=== PATIENT | male | born 1950 | race Asian ===

== ENCOUNTER 2016-09-06 11:38 | Inpatient (IN) | payer MEDICARE, MEDICAID ==
[~2016-09-06] VITALS: Ht 165.1 cm; Wt 63.0 kg
--- NOTE | 2016-09-06 11:38 | Emergency Room Report ---
History of Present Illness General Chief Complaint: Chest Pain Source: Patient, Medical Record Present Illness HPI Patient is a 65-year-old male sent in by detention after increased chest pain for the past 2 hours. Patient was reportedly had prior history of renal disease. As well as diabetes. Patient was noted to have prior history of pneumonia as well venous thromboembolic disease. The patient noted to be short of breath by EMS. He was started on supplemental oxygen. Allergies: Coded Allergies: No Known Allergies (Unverified , 09/06/16) Patient History Past Medical History: see triage record Reviewed Nursing Documentation: PMH: Agreed, PSxH: Agreed Nursing Documentation-PM Past Medical History: No History, Except For Hx Hypertension: Yes Hx Diabetes: Yes - DM2 Hx Cerebrovascular Accident: Yes - Left sided weakness Review of Systems All Other Systems: negative except mentioned in HPI Physical Exam Vital Signs Date Time Temp Pulse Resp B/P Pulse Ox O2 Delivery O2 Flow Rate FiO2 09/06/16 11:26 140 22 168/71 98 Simple Mask 15.0 General Appearance: alert, moderate distress ENT: hearing grossly normal Neck: full range of motion Respiratory: rales, rhonchi Cardiovascular #1: normal peripheral pulses, regular rate, rhythm, no edema Gastrointestinal: normal bowel sounds, non tender, soft, no mass, no organomegaly Neurologic: normal inspection, alert, director targeted marketing III-XII nml as tested Skin: normal inspection, normal color, no rash Medical Decision Making Diagnostic Impression: Primary Impression: Pneumonia ER Course Patient presented for chest pain. Differential diagnosis included but was not limited to acute coronary syndrome, pulmonary embolism, pneumonia, aortic dissection, shingles, pneumothorax, aortic dissection, esophageal rupture, pericarditis. Because of complexity of patient's case laboratory testing and imaging studies were ordered.Laboratory testing was notable for elevated white blood count. The patient was noted to have infiltrate on chest x-ray and consistent with pneumonia. Patient started on BiPAP. He was given IV antibiotics and IV fluids as well as Tylenol for fever. Dr. Jeter was contacted for inpatient management due to complexity of medical condition. Labs Test 09/06/16 11:36 09/06/16 11:46 White Blood Count 18.2 K/UL (4.8-10.8) Red Blood Count 3.39 M/UL (4.70-6.10) Hemoglobin 10.9 G/DL (14.2-18.0) Hematocrit 31.9 % (42.0-52.0) Mean Corpuscular Volume 94 FL (80-99) Mean Corpuscular Hemoglobin 32.1 PG (27.0-31.0) Mean Corpuscular Hemoglobin Concent 34.0 G/DL (32.0-36.0) Red Cell Distribution Width 11.0 % (11.6-14.8) Platelet Count 247 K/UL (150-450) Mean Platelet Volume 5.5 FL (6.5-10.1) Neutrophils (%) (Auto) % (45.0-75.0) Lymphocytes (%) (Auto) % (20.0-45.0) Monocytes (%) (Auto) % (1.0-10.0) Eosinophils (%) (Auto) % (0.0-3.0) Basophils (%) (Auto) % (0.0-2.0) Sodium Level 134 mEQ/L (135-145) Potassium Level 3.7 mEQ/L (3.4-4.9) Chloride Level 94 mEQ/L (98-107) Carbon Dioxide Level 24 mEQ/L (20-30) Anion Gap 16 (5-15) Blood Urea Nitrogen 16 mg/dL (7-23) Creatinine 0.7 mg/dL (0.7-1.2) Estimat Glomerular Filtration Rate > 60 mL/min (>60) Glucose Level 115 mg/dL (74-106) Lactic Acid Level 3.50 mmol/L (0.66-2.22) Calcium Level 7.5 mg/dL (8.6-10.2) Total Bilirubin 0.7 mg/dL (0.0-1.2) Aspartate Amino Transf (AST/SGOT) 10 U/L (5-40) Alanine Aminotransferase (ALT/SGPT) 5 U/L (3-41) Alkaline Phosphatase 58 U/L (40-129) Total Creatine Kinase 21 U/L (38-174) Troponin I < 0.30 ng/mL (<=0.30) Total Protein 7.0 g/dL (6.6-8.7) Albumin 1.6 g/dL (3.5-5.2) Globulin 5.4 g/dL Albumin/Globulin Ratio 0.2 (1.0-2.7) EKG Diagnostic Results Rate: tachycardiac - 123 Rhythm: NSR ST Segments: no acute changes Rhythm Strip Diag. Results EP Interpretation: yes Rhythm: NSR, no PVC's, no ectopy Chest X-Ray Diagnostic Results EP Interpretation: Yes Findings: no effusion, no pneumothorax, other - consolidation Number of Views: 1 Last Vital Signs Date Time Temp Pulse Resp B/P Pulse Ox O2 Delivery O2 Flow Rate FiO2 09/06/16 11:26 140 22 168/71 98 Simple Mask 15.0 Status: unchanged Disposition: ADMITTED INPATIENT Condition: Serious Negro Josue September 06, 2016 11:38
[2016-09-06] MEDS ORDERED: Acetaminophen 650 MG SUPP RECTAL ONE ×2 (11:45)
[2016-09-06] MEDS ORDERED: Unasyn 3gm Inj ONE (11:52)
[2016-09-06] MEDS ORDERED: Ampicillin/Sulbactam Sod 3 GM in NS 110 ML IV SCH (12:00)
[2016-09-06] MEDS ORDERED: Vancomycin 1 GM in NS 275 ML IV ONE (12:00)
[2016-09-06 12:05] VITALS: BP 140/83
[2016-09-06 12:07] LABS: MEAN CORPUSCULAR HEMOGLOBIN 32.1 PG (27.0-31.0); MEAN CORPUSCULAR VOLUME 94 FL (80-99); MEAN PLATELET VOLUME 5.5 FL (6.5-10.1); PLATELET COUNT 247 K/UL (150-450); RED BLOOD COUNT 3.39 M/UL (4.70-6.10); WHITE BLOOD COUNT 18.2 K/UL (4.8-10.8)
[2016-09-06 12:24] LABS: ALANINE AMINOTRANSFERASE 5 U/L (3-41); ALBUMIN/GLOBULIN RATIO 0.2 (1.0-2.7); ANION GAP 16 (5-15); ASPARTATE AMINO TRANSFERASE 10 U/L (5-40); CALCIUM 7.5 mg/dL (8.6-10.2); CARBON DIOXIDE 24 mEQ/L (20-30); CHLORIDE 94 mEQ/L (98-107); CREATININE 0.7 mg/dL (0.7-1.2); GLOMERULAR FILTRATION RATE > 60 mL/min (>60); HEMOLYSIS 53; POTASSIUM 3.7 mEQ/L (3.4-4.9); SODIUM 134 mEQ/L (135-145)
[2016-09-06 12:25] LABS: TROPONIN I < 0.30 ng/mL (<=0.30)
[2016-09-06 12:27] LABS: APPEARANCE,URINE SLIGHTLY CLOUDY; KETONES,URINE NEGATIVE (NEGATIVE); LEUKOCYTE ESTERASE ,URINE 3+ (NEGATIVE); NITRITE,URINE NEGATIVE (NEGATIVE); PH,URINE 6 (4.5-8.0); PROTEIN,URINE 3+ (NEGATIVE); UROBILINOGEN,URINE 1 MG/DL (0.0-1.0)
[2016-09-06 12:33] LABS: REFLEX LACTIC ACID YES OR NO YES
[2016-09-06 12:35] LABS: CKMB < 1.5 ng/mL (< 6.7)
[2016-09-06 12:38] LABS: BACTERIA,URINE MODERATE /HPF; SQUAMOUS EPITHELIAL CELL,UR OCCASIONAL /LPF (NONE/OCC); WBC,URINE 30-40 /HPF (0 - 0)
[2016-09-06] MEDS ORDERED: Vancomycin 1gm inj IVPB ONE (12:41)
[2016-09-06] MEDS ORDERED: LOSARTAN POTASS50 MG ORAL (13:02)
[2016-09-06] MEDS ORDERED: TAMSULOSIN HCL0.4 MG ORAL (13:02)
[2016-09-06] MEDS ORDERED: BRIMONIDINE TART5 ML BOTH EYES (13:02)
[2016-09-06] MEDS ORDERED: MULTIVITAMINS1 EAC2 ORAL (13:02)
[2016-09-06] MEDS ORDERED: CARBIDOPA-LEVO1 EAC5 PO (13:02)
[2016-09-06] MEDS ORDERED: DOCUSATE SODIU100 MG ORAL (13:02)
[2016-09-06] MEDS ORDERED: GLIPIZIDE5 MG ORAL (13:02)
[2016-09-06] MEDS ORDERED: ACETAMINOPHEN325 M3 PO (13:05)
[2016-09-06] MEDS ORDERED: PRO-STAT LIQUID30 ML ORAL (13:05)
[2016-09-06] MEDS ORDERED: TRADJENTA5 MG PO (13:06)
[2016-09-06] MEDS ORDERED: TIMOLOL HEMIHYDRATE BOTH EYES (13:08)
[2016-09-06 13:20] LABS: BAND NEUTROPHILS % (MANUAL) 11 % (0-8); BASOPHILS % (MANUAL) 0 % (0-2); EOSINOPHILS % (MANUAL) 0 % (0-3); LYMPHOCYTES % (MANUAL) 3 % (20-45); NEUTROPHILS % (MANUAL) 84 % (45-75); PLATELET ESTIMATE ADEQUATE; PLATELET MORPHOLOGY NORMAL; TOTAL CELLS COUNTED 100
[2016-09-06 13:23] VITALS: BP 114/58
[2016-09-06] MEDS ORDERED: Miralax 17gm pkt ORAL PRN (14:00)
[2016-09-06] MEDS ORDERED: Nitroglycerin Subl 0.4mg tab (Bottle Of 25) SL PRN (14:00)
[2016-09-06] MEDS ORDERED: Mylanta II UD 30ml ORAL PRN (14:00)
[2016-09-06] MEDS ORDERED: Promethazine/Codeine 5ml UD ORAL PRN (14:00)
[2016-09-06] MEDS ORDERED: DuoNeb 0.5-3(2.5)mg/3ml neb HHN PRN (14:00)
[2016-09-06 14:34] VITALS: BP 125/60
[2016-09-06] MEDS ORDERED: Promethazine/DM 6.25mg/5ml ORAL PRN (14:45)
[2016-09-06] MEDS: DuoNeb 0.5-3(2.5)mg/3ml neb HHN SCH ×3 (15:00→22:54)
[2016-09-06 16:00] VITALS: BP 138/80
[2016-09-06] MEDS: NovoLOG Insulin Flexpen SUBQ SCH ×2 (16:30→20:41)
[2016-09-06] MEDS ORDERED: NovoLOG Insulin Flexpen SUBQ SCH ×2 (16:30→16:50)
[2016-09-06] MEDS: Piperacillin/Tazobactam 3.375 GM in D5W 110 ML IVPB SCH (17:13)
[2016-09-06 20:00] VITALS: BP 114/66
--- NOTE | 2016-09-06 20:01 | Wound Care Consultation ---
Wound Assessment Wound Assessment #1: Wound Present on Admission: Yes New Wound: No Status Change of Wound: No Wound Location Body Site Modif: right Wound Location Body Site: heel Wound Type: pressure ulcer Ho Test: Does not Ho Pressure Ulcer Stage: deep tissue injury Wound Thickness: Full Thickness Wound Length: 3.5 Wound Width: 3.0 Wound Depth: utd Percent of Wound Purple/Maroon: 100 Wound Drainage Amount: None Wound Drainage Odor: None/Absent Tissue Surrounding Wound: Erythemic Wound General Appearance: Reddened Wound Assessment #2: Wound Number: #2 Wound Present on Admission: Yes New Wound: No Status Change of Wound: No Wound Location Body Site Modif: mid Wound Location Body Site: nose Wound Type: pressure ulcer Ho Test: Does not Ho Pressure Ulcer Stage: I Wound Length: 0.8 Wound Width: 0.8 Percent of Wound [place]/Red: 100 Wound Drainage Amount: None Wound Drainage Odor: None/Absent Tissue Surrounding Wound: Intact Wound General Appearance: Reddened Wound Assessment #3: Wound Number: #3 Wound Present on Admission: Yes New Wound: No Status Change of Wound: No Wound Location Body Site Modif: mid Wound Location Body Site: sacral Wound Type: pressure ulcer Ho Test: Does not Ho Pressure Ulcer Stage: IV/unstageable Wound Thickness: Full Thickness Wound Length: 3.0 Wound Width: 3.0 Wound Depth: utd Percent of Wound [place]/Red: 10 Percent of Wound Bed Yellow/Wh: 90 Wound Drainage Description: Serosanguineous Wound Drainage Amount: Moderate Wound Drainage Odor: None/Absent Tissue Surrounding Wound: Macerated Wound General Appearance: Draining Wound Comment #1 Sacral stage IV/unstageable pressure ulcer #2 Right heel DTI pressure ulcer #3 Bridge of the nose stage I pressure ulcer Recommendation -Sacral pressure ulcer Cleanse with saline, pat dry, apply Therahoney gel to wound bed, cover with 4x4 , secure with Bordered gauze daily and PRN soiled/dislodged -Local wound care per protocol for DTI -Keep clean and dry -Turn and reposition -Optimize nutrition -Low air loss mattress -Offload both heels -Heel protector on both heels -Assess and f/u accordingly for any changes BASIA JACKSON RN September 06, 2016 20:00
[2016-09-06] MEDS: Timolol 0.5% Op Soln 2.5ml BOTH EYES SCH (20:42)
[2016-09-06] MEDS: Tamsulosin 0.4mg cap ORAL SCH (20:42)
[2016-09-06] MEDS ORDERED: Heparin 5000 units/ml inj SUBQ SCH (21:00)
[2016-09-06] MEDS ORDERED: Cefepime HCl 1 GM in D5W 55 ML IV SCH (21:00)
[2016-09-06] MEDS: Brimonidine 0.2% Opth Sol BOTH EYES SCH (21:56)
[2016-09-06] MEDS: Vancomycin 1gm/D5W 275ml IVPB SCH ×2 (23:07)
[2016-09-07] VITALS: BP 109/62
[2016-09-07 04:00] VITALS: BP 124/64
[2016-09-07 04:25] LABS: ALANINE AMINOTRANSFERASE 5 U/L (3-41); ALBUMIN/GLOBULIN RATIO 0.2 (1.0-2.7); ANION GAP 11 (5-15); ASPARTATE AMINO TRANSFERASE 6 U/L (5-40); CALCIUM 7.1 mg/dL (8.6-10.2); CARBON DIOXIDE 26 mEQ/L (20-30); CHLORIDE 101 mEQ/L (98-107); CREATININE 0.5 mg/dL (0.7-1.2); GLOMERULAR FILTRATION RATE > 60 mL/min (>60); HEMOLYSIS 1; POTASSIUM 3.1 mEQ/L (3.4-4.9); SODIUM 138 mEQ/L (135-145)
[2016-09-07 04:33] LABS: MEAN CORPUSCULAR HEMOGLOBIN 32.7 PG (27.0-31.0); MEAN CORPUSCULAR HGB CONC 34.9 G/DL (32.0-36.0); MEAN CORPUSCULAR VOLUME 94 FL (80-99); MEAN PLATELET VOLUME 5.6 FL (6.5-10.1); PLATELET COUNT 169 K/UL (150-450); RED CELL DISTRIBUTION WIDTH 11.3 % (11.6-14.8); WHITE BLOOD COUNT 12.7 K/UL (4.8-10.8)
[2016-09-07] MEDS: Brimonidine 0.2% Opth Sol BOTH EYES SCH ×3 (05:17→21:54)
[2016-09-07] MEDS: Piperacillin/Tazobactam 3.375 GM in D5W 110 ML IVPB SCH ×3 (05:17→21:53)
[2016-09-07] MEDS: NovoLOG Insulin Flexpen SUBQ SCH ×4 (05:39→21:00)
[2016-09-07] MEDS: DuoNeb 0.5-3(2.5)mg/3ml neb HHN SCH ×6 (07:40→23:00)
[2016-09-07 08:00] VITALS: BP 121/70
[2016-09-07] MEDS ORDERED: KCl 10% 40mEq/30ml liquid ORAL ONE (08:30)
[2016-09-07] MEDS: Losartan 50mg tab ORAL SCH (08:39)
[2016-09-07] MEDS: Docusate 100mg cap ORAL SCH ×2 (08:39→17:06)
[2016-09-07] MEDS: Heparin 5000 units/ml inj SUBQ SCH ×2 (08:40→20:33)
[2016-09-07] MEDS: Timolol 0.5% Op Soln 2.5ml BOTH EYES SCH ×2 (08:40→20:32)
[2016-09-07 10:25] LABS: ABG ALLEN TEST POSITIVE; ABG BASE EXCESS 0.2; ABG PCO2 30.8 mmHg (35.0-45.0)
--- NOTE | 2016-09-07 10:49 | Diagnostic Imaging Report ---
Indication: Abnormal breath sounds Comparison: 09/06/16 A single view chest radiograph was obtained. Findings: Interstitial vascular prominence demonstrated. Basilar atelectasis demonstrated. Small right pleural effusion is noted. The heart is mildly enlarged. Impression: Mild CHF suspected. No significant change from the previous day
[2016-09-07 11:47] VITALS: BP 113/74
[2016-09-07] MEDS: Vancomycin 1gm/D5W 275ml IVPB SCH ×2 (11:56)
[2016-09-07] MEDS ORDERED: Tubing IV Secondary IV ONE (14:11)
[2016-09-07 16:15] VITALS: BP 117/65
[2016-09-07 20:13] VITALS: BP 127/71
[2016-09-07] MEDS: Tamsulosin 0.4mg cap ORAL SCH (20:32)
--- NOTE | 2016-09-07 22:01 | History and Physical Report ---
DATE OF ADMISSION: 09/06/2016 CHIEF COMPLAINT: Chest pain, shortness of breath, and pneumonia. HISTORY OF PRESENT ILLNESS: The patient is a 66-year-old male. He has multiple medical problems including prior history of pneumonia, stroke, and encephalopathy. He has a history of acute kidney injury, DVT, and PE. He presented from a [facility] facility with complaints of acute onset of shortness of breath. According to the patient, he has had no cough, fevers, or chills. On evaluation in the emergency room, the patient had x-ray evidence of pneumonia. He was very dyspneic and hypoxic, was started on BiPAP and is now admitted for further evaluation and care. There are no reports of any bleeding. No melena. No bright red blood per rectum. PAST MEDICAL HISTORY: As above. PAST SURGICAL HISTORY: None. CURRENT MEDICATIONS: Reconciled and reviewed. ALLERGIES: None. FAMILY HISTORY: None. SOCIAL HISTORY: Negative for tobacco, ethanol, or drugs. REVIEW OF SYSTEMS: Unobtainable as the patient is currently on BiPAP and is dyspneic. PHYSICAL EXAMINATION: VITAL SIGNS: Temperature 98.3, pulse 72, respirations 20, and blood pressure 124/64. The patient is in no apparent distress. He is arousable. Does follow some simple commands. NECK: Supple. HEART: Regular rate and rhythm. LUNGS: Significant for scattered rhonchi. ABDOMEN: Soft, nontender, and nondistended. EXTREMITIES: Without clubbing, cyanosis, or edema. LABORATORY DATA: White count was 18,000, hemoglobin 10, hematocrit 31, and platelet count of 247,000. Lactic acid was 3.5. Potassium is 3.1. UA showed 30 to 40 WBCs. ASSESSMENT: 1. This is an elderly male with a history of stroke, encephalopathy, hypertension, chronic kidney disease, questionable history of pulmonary embolism, benign prostatic hypertrophy, and pneumonia admitted with complaints of shortness of breath, chest pain, respiratory failure secondary to pneumonia respiratory failure. 2. Questionable history of deep venous thrombosis and pulmonary embolism. 3. Hypertensive heart disease. 4. History of acute kidney injury. 5. Lactic acidosis. PLAN: IV fluids, respiratory treatments, and empiric antibiotic therapy for healthcare-associated aspiration pneumonia. ID, pulmonary, and Cardiology consultation was obtained. We will check a venous duplex of the legs. Monitor the patient's chest x-ray. The patient's status is currently guarded. Greyson Upton M.D. DR: ALEX JOB#: [id number] CC:
--- NOTE | 2016-09-07 22:15 | Consultation ---
DATE OF CONSULTATION: 09/07/2016 CONSULTING PHYSICIAN: Jossue Alvarez M.D. REASON FOR ADMISSION: Respiratory insufficiency, possible sepsis. HISTORY OF PRESENT ILLNESS: This is a 66-year-old male, [facility] due to chest pain, which is apparently acute. The patient was noted the have prior history of pneumonia and thrombosis. The patient was noted to also be short of breath and started on supplemental oxygen. I was called to assist and evaluate further for ongoing change in management options. The patient was placed on high-flow 15 liters mask and was saturating 98% in the emergency room. The patient currently is on nasal cannula and improved. The patient is on 4 liters. The patient does have rhonchi and congestion on examination. The patient's care discussed in detail and I was asked to assist to evaluate further. PAST MEDICAL HISTORY: Notable for history of CVA with focal weakness, history of diabetes, and history of prior pneumonia. The patient also with history of hypertension. MEDICATIONS: Reviewed. ALLERGIES: Reviewed. SOCIAL HISTORY: The patient resides in a long term facility. Nonsmoker and nondrinker at present. REVIEW OF SYSTEMS: Otherwise as above. Difficult to fully obtain. PHYSICAL EXAMINATION: GENERAL: A well-developed male, appears older than his stated age. VITAL SIGNS: Temperature 96.9, pulse 68, respiratory rate 21, blood pressure 121/71, and oxygen saturation 98% HEENT: Negative. The patient's extraocular movements are grossly intact. The oropharynx is clear. There is no meningismus. NECK: Supple. No adenopathy. LUNGS: With scattered rhonchi. Moderate air entry. CARDIOVASCULAR: S1 and S2. Regular rate and rhythm without murmurs, rubs, or gallops. ABDOMEN: Soft, nontender, and nondistended. EXTREMITIES: No cyanosis. No clubbing. No edema. NEUROLOGIC: With focal weakness. Alert. LABORATORY AND DIAGNOSTIC DATA: Lab data reviewed. White blood cell count 18.2, hemoglobin 10.9, hematocrit 31.9, and platelets 247,000. Sodium is 134, potassium 2.4, BUN 16, and creatinine 0.7. Lactic acid 3.5. The labs are otherwise negative. Troponin negative. EKG, sinus tachycardia. Chest x-ray appears to be fairly negative, but early infiltrate cannot be fully ruled out. IMPRESSION: 1. Respiratory insufficiency. 2. Evidence of congestion. 3. Noted hypoxemia. 4. Sinus tachycardia. 5. History of cerebrovascular accident with focal weakness. 6. History of diabetes. 7. Leukocytosis. 8. Possible sepsis. RECOMMENDATIONS: 1. Subcu heparin. 2. Obtain duplex of lower extremities to rule out deep venous thrombosis. 3. Consider further testing for noted underlying hypoxemia, although the patient has significantly improved and nebulized therapy as needed and follow cultures and follow up arterial blood gases. The patient is guarded, but appears to have improved. Arterial blood gases have been ordered. We will follow up on results. Jossue Alvarez M.D. DR: PRIMITIVO JOB#: [id number] CC:
--- NOTE | 2016-09-07 23:01 | Consultation ---
DATE OF CONSULTATION: 09/07/2016 INFECTIOUS DISEASES CONSULTATION REFERRING PHYSICIAN: Greyson Upton M.D. REASON FOR CONSULTATION: Pneumonia. HISTORY OF PRESENTING ILLNESS: This is a 66-year-old gentleman with history of diabetes, hypertension, and CVA, who came in with chest pain. He was found to have pneumonia and an Infectious Diseases consultation has been obtained for antibiotics. PAST MEDICAL HISTORY: 1. History of diabetes. 2. Hypertension. 3. CVA. MEDICATIONS: As an inpatient, the patient is on Cozaar, Colace, subcutaneous heparin, IV vancomycin, brimonidine, Flomax, timolol, Sinemet, ranitidine, Zosyn, albuterol, ipratropium, and Phenergan. ALLERGIES: No known drug allergies. SOCIAL HISTORY: Unknown. FAMILY HISTORY: Unknown. REVIEW OF SYSTEMS: Unable to obtain currently. PHYSICAL EXAMINATION: VITAL SIGNS: Temperature of 96.9 degrees, T-max of 102.8 degrees, pulse of 66, respiratory rate of 21, blood pressure 124/64, and O2 saturation of 97%. HEENT: Pupils equally reactive to light and accommodation. Mouth appears clean without thrush. NECK: Supple. No adenopathy. No JVD. CARDIOVASCULAR: Regular rate and rhythm. No murmurs. LUNGS: Clear to auscultation bilaterally. No crackles. No wheezes. ABDOMEN: Soft and nontender. No organomegaly. EXTREMITIES: No cyanosis, no clubbing, and no edema. LABORATORY AND DIAGNOSTIC DATA: White count of 18.2 on 09/06/2016, white count of 12.7 today, hemoglobin 9.1, hematocrit 26.2, MCV 94, and platelet count of 169,000. Sodium 138, potassium 3.1, chloride 101, bicarbonate 26, BUN 16, creatinine 0.5, glucose 64, and calcium 7.1. Total bilirubin 0.5. AST 6, ALT 5, and alkaline phosphatase 50. Total protein 6. Albumin 1.3. UA showing 30 to 40 white cells. Chest x-ray showing pneumonia. ASSESSMENT: 1. This is a 66-year-old gentleman with history of diabetes, hypertension, and cerebrovascular accident, who comes in and is found to have possible pneumonia. 2. He also has a urinary tract infection. 3. Fevers are improving. 4. Leukocytosis is improving. PLAN: 1. Continue IV vancomycin and Zosyn. 2. We will order blood cultures. 3. We will order urine cultures. 4. We will order sputum cultures. 5. We will follow up cultures and adjust antibiotics accordingly. I would like to thank, Dr. Upton for this consultation. Katya Carrera M.D. DR: Chris JOB#: [id number] CC: Greyson Upton M.D.
[2016-09-08] VITALS: BP 134/74
[2016-09-08] MEDS: Vancomycin 1gm/D5W 275ml IVPB SCH ×4 (01:04→11:30)
[2016-09-08] MEDS: DuoNeb 0.5-3(2.5)mg/3ml neb HHN SCH ×5 (03:00→23:00)
[2016-09-08 04:16] VITALS: BP 139/72
[2016-09-08 04:26] LABS: BASOPHILS % (AUTO) 0.3 % (0.0-2.0); EOSINOPHILS % (AUTO) 0.5 % (0.0-3.0); LYMPHOCYTES % (AUTO) 13.7 % (20.0-45.0); MEAN CORPUSCULAR HEMOGLOBIN 33.1 PG (27.0-31.0); MEAN CORPUSCULAR VOLUME 95 FL (80-99); MEAN PLATELET VOLUME 5.3 FL (6.5-10.1); MONOCYTES % (AUTO) 4.7 % (1.0-10.0); NEUTROPHILS % (AUTO) 80.8 % (45.0-75.0); PLATELET COUNT 178 K/UL (150-450); RED BLOOD COUNT 2.84 M/UL (4.70-6.10); RED CELL DISTRIBUTION WIDTH 11.5 % (11.6-14.8); WHITE BLOOD COUNT 10.2 K/UL (4.8-10.8)
[2016-09-08 04:38] LABS: ALANINE AMINOTRANSFERASE 5 U/L (3-41); ALBUMIN/GLOBULIN RATIO 0.2 (1.0-2.7); ANION GAP 11 (5-15); ASPARTATE AMINO TRANSFERASE 7 U/L (5-40); CALCIUM 6.8 mg/dL (8.6-10.2); CARBON DIOXIDE 24 mEQ/L (20-30); CHLORIDE 103 mEQ/L (98-107); CREATININE 0.7 mg/dL (0.7-1.2); GLOMERULAR FILTRATION RATE > 60 mL/min (>60); HEMOLYSIS 0; POTASSIUM 3.5 mEQ/L (3.4-4.9); SODIUM 138 mEQ/L (135-145); TOTAL PROTEIN 5.7 g/dL (6.6-8.7)
[2016-09-08] MEDS: Brimonidine 0.2% Opth Sol BOTH EYES SCH ×3 (05:53→21:36)
[2016-09-08] MEDS: Piperacillin/Tazobactam 3.375 GM in D5W 110 ML IVPB SCH ×3 (05:53→21:35)
[2016-09-08] MEDS: NovoLOG Insulin Flexpen SUBQ SCH ×4 (06:41→20:49)
--- NOTE | 2016-09-08 08:05 | General Progress Note ---
Assessment/Plan Problem List: (1) Sepsis ICD Codes: A41.9 - Sepsis, unspecified organism SNOMED: 78480346 (2) Toxic metabolic encephalopathy ICD Codes: G92 - Toxic encephalopathy SNOMED: 720905915 (3) Pneumonia ICD Codes: J18.9 - Pneumonia, unspecified organism SNOMED: 450588518 Status: stable, progressing Assessment/Plan iv abx follow up cultures resp care swallow eval monitor labs message left with son yesterday- no call back yet Subjective ROS Limited/Unobtainable: No Constitutional: Reports: malaise, weakness HEENT: Reports: no symptoms Cardiovascular: Reports: no symptoms Respiratory: Reports: cough, shortness of breath, sputum Gastrointestinal/Abdominal: Reports: no symptoms Genitourinary: Reports: no symptoms Neurologic/Psychiatric: Reports: pre-existing deficit Endocrine: Reports: no symptoms Hematologic/Lymphatic: Reports: anemia Allergies: Coded Allergies: No Known Allergies (Unverified , 09/06/16) All Systems: reviewed and negative except above Subjective no events. more alert. seems less confused. answers questions. no chest pain no obvious signs/sx of aspirtion. Objective Last 24 Hour Vital Signs Date Time Temp Pulse Resp B/P Pulse Ox O2 Delivery O2 Flow Rate FiO2 09/08/16 07:13 Nasal Cannula 2.0 28 09/08/16 07:13 97 Nasal Cannula 2.0 28 09/08/16 04:16 97.4 81 18 139/72 97 Nasal Cannula 2.0 09/08/16 04:00 40 09/08/16 04:00 16 09/08/16 03:20 Nasal Cannula 2.0 09/08/16 03:20 Nasal Cannula 2.0 09/08/16 00:00 82 09/08/16 00:00 40 09/08/16 00:00 97.6 82 18 134/74 95 Nasal Cannula 2.0 09/07/16 23:07 Nasal Cannula 2.0 09/07/16 23:07 Nasal Cannula 2.0 09/07/16 20:13 97.7 80 16 127/71 95 Nasal Cannula 2.0 09/07/16 20:00 40 09/07/16 20:00 79 09/07/16 19:34 80 16 99 Nasal Cannula 2.0 09/07/16 19:27 76 16 99 Nasal Cannula 2.0 09/07/16 19:27 Nasal Cannula 4.0 09/07/16 19:27 97 Nasal Cannula 4.0 09/07/16 16:15 97.3 78 23 117/65 98 Nasal Cannula 2.0 78 09/07/16 16:00 40 09/07/16 16:00 75 09/07/16 15:32 78 20 99 Nasal Cannula 2.0 09/07/16 15:22 72 20 99 Nasal Cannula 2.0 09/07/16 12:00 40 09/07/16 12:00 66 09/07/16 11:47 98.6 74 22 113/74 96 Nasal Cannula 2.0 74 09/07/16 11:30 76 20 100 Nasal Cannula 2.0 09/07/16 11:20 76 22 98 Nasal Cannula 2.0 09/07/16 09:18 97 Nasal Cannula 4.0 09/07/16 09:17 Nasal Cannula 4.0 09/07/16 08:39 124/64 Intake and Output 09/07/16 09/08/16 19:00 07:00 Intake Total 1645.008 ml 1487.500 ml Output Total 350 ml 300 ml Balance 1295.008 ml 1187.500 ml Intake Oral 360 ml 100 ml IV Total 1285.008 ml 1387.500 ml Output Urine Total 350 ml 300 ml Laboratory Tests 09/07/16 10:15: Arterial Blood pH 7.490H, Arterial Blood Partial Pressure CO2 30.8L, Arterial Blood Partial Pressure O2 115.8H, Arterial Blood HCO3 23.0, Arterial Blood Oxygen Saturation 97.5, Arterial Blood Base Excess 0.2, Gary Test Positive 09/07/16 10:20: Lactic Acid Level 1.10 09/07/16 23:35: Vancomycin Level Trough 20.6H 09/08/16 03:10: White Blood Count 10.2, Red Blood Count 2.84L, Hemoglobin 9.4L, Hematocrit 26.9L , Mean Corpuscular Volume 95, Mean Corpuscular Hemoglobin 33.1H, Mean Corpuscular Hemoglobin Concent 35.0, Red Cell Distribution Width 11.5L, Platelet Count 178, Mean Platelet Volume 5.3L, Neutrophils (%) (Auto) 80.8H, Lymphocytes (%) (Auto) 13.7L, Monocytes (%) (Auto) 4.7, Eosinophils (%) (Auto) 0.5, Basophils (%) (Auto) 0.3, Sodium Level 138, Potassium Level 3.5, Chloride Level 103, Carbon Dioxide Level 24, Anion Gap 11, Blood Urea Nitrogen 14, Creatinine 0.7, Estimat Glomerular Filtration Rate > 60, Glucose Level 130H, Calcium Level 6.8L, Total Bilirubin 0.4, Aspartate Amino Transf (AST/SGOT) 7, Alanine Aminotransferase (ALT/SGPT) 5, Alkaline Phosphatase 65, Total Protein 5.7L, Albumin 1.3L, Globulin 4.4, Albumin/Globulin Ratio 0.2L Height (Feet): 5 Height (Inches): 6.00 Weight (Pounds): 139 General Appearance: WD/WN, alert Neck: supple Cardiovascular: regular rhythm Respiratory/Chest: rhonchi - bilaterally Abdomen: normal bowel sounds, non tender, soft, no organomegaly, no mass Edema: no edema noted Arm (L), no edema noted Arm (R), no edema noted Leg (L), no edema noted Leg (R), no edema noted Pedal (L), no edema noted Pedal (R), no edema noted Generalized Neurologic: alert, responsive Skin: warm/dry CHELSY DA SILVA September 08, 2016 08:04
[2016-09-08] MEDS ORDERED: KCl 10% 40mEq/30ml liquid ORAL ONE (08:30)
[2016-09-08 08:33] VITALS: BP 153/75
[2016-09-08] MEDS: Losartan 50mg tab ORAL SCH (08:38)
[2016-09-08] MEDS: Docusate 100mg cap ORAL SCH ×2 (08:39→17:28)
[2016-09-08] MEDS: Timolol 0.5% Op Soln 2.5ml BOTH EYES SCH ×2 (08:39→20:41)
[2016-09-08] MEDS: Heparin 5000 units/ml inj SUBQ SCH ×2 (08:43→20:48)
--- NOTE | 2016-09-08 08:55 | Pulmonology Progress Note ---
Assessment/Plan Assessment/Plan IMPRESSION: 1. Respiratory insufficiency. 2. Evidence of congestion. 3. Noted hypoxemia. 4. Sinus tachycardia. 5. History of cerebrovascular accident with focal weakness. 6. History of diabetes. 7. Leukocytosis. 8. Possible sepsis. PLAN care noted respiratory care IV antibiotics keep negative chest imaging with ?pulmonary edema follow up exam ID Noted impression, plan, and exam edited and reviewed in detail care discussed with RN Subjective ROS Limited/Unobtainable: Yes Allergies: Coded Allergies: No Known Allergies (Unverified , 09/06/16) Subjective minimal congestion overnight events noted Objective Last 24 Hour Vital Signs Date Time Temp Pulse Resp B/P Pulse Ox O2 Delivery O2 Flow Rate FiO2 09/08/16 08:38 153/75 09/08/16 08:33 97.4 76 18 153/75 98 Nasal Cannula 2.0 76 09/08/16 07:13 Nasal Cannula 2.0 28 09/08/16 07:13 82 18 97 Nasal Cannula 2.0 28 09/08/16 07:13 82 18 97 Nasal Cannula 2.0 28 09/08/16 07:13 97 Nasal Cannula 2.0 28 09/08/16 04:16 97.4 81 18 139/72 97 Nasal Cannula 2.0 09/08/16 04:00 40 09/08/16 04:00 16 09/08/16 03:20 Nasal Cannula 2.0 09/08/16 03:20 Nasal Cannula 2.0 09/08/16 00:00 82 09/08/16 00:00 40 09/08/16 00:00 97.6 82 18 134/74 95 Nasal Cannula 2.0 09/07/16 23:07 Nasal Cannula 2.0 09/07/16 23:07 Nasal Cannula 2.0 09/07/16 20:13 97.7 80 16 127/71 95 Nasal Cannula 2.0 09/07/16 20:00 40 09/07/16 20:00 79 09/07/16 19:34 80 16 99 Nasal Cannula 2.0 09/07/16 19:27 76 16 99 Nasal Cannula 2.0 09/07/16 19:27 Nasal Cannula 4.0 09/07/16 19:27 97 Nasal Cannula 4.0 09/07/16 16:15 97.3 78 23 117/65 98 Nasal Cannula 2.0 78 09/07/16 16:00 40 09/07/16 16:00 75 09/07/16 15:32 78 20 99 Nasal Cannula 2.0 09/07/16 15:22 72 20 99 Nasal Cannula 2.0 09/07/16 12:00 40 09/07/16 12:00 66 09/07/16 11:47 98.6 74 22 113/74 96 Nasal Cannula 2.0 74 09/07/16 11:30 76 20 100 Nasal Cannula 2.0 09/07/16 11:20 76 22 98 Nasal Cannula 2.0 09/07/16 09:18 97 Nasal Cannula 4.0 09/07/16 09:17 Nasal Cannula 4.0 Intake and Output 09/07/16 09/08/16 19:00 07:00 Intake Total 1645.008 ml 1487.500 ml Output Total 350 ml 300 ml Balance 1295.008 ml 1187.500 ml Intake Oral 360 ml 100 ml IV Total 1285.008 ml 1387.500 ml Output Urine Total 350 ml 300 ml Objective PHYSICAL EXAMINATION: GENERAL: A well-developed male, appears older than his stated age. NAD HEENT: Negative. The patient's extraocular movements are grossly intact. The oropharynx is clear. NECK: Supple. No adenopathy. LUNGS: With some expiratory rhonchi. Moderate air entry. no wheeze CARDIOVASCULAR: S1 and S2. Regular rate and rhythm without murmurs, rubs, or gallops. ABDOMEN: Soft, nontender, and nondistended. no HSM EXTREMITIES: No cyanosis. No clubbing. No edema. NEUROLOGIC: With focal weakness. Alert. Microbiology Date/Time Source Procedure Growth Status 09/06/16 11:36 Blood Blood Culture - Preliminary NO GROWTH AFTER 24 HOURS Resulted 09/06/16 11:36 Blood Blood Culture - Preliminary NO GROWTH AFTER 24 HOURS Resulted 09/06/16 11:46 Nasal Nares MRSA Culture - Final NO METHICILLIN RESISTANT STAPH AUREUS... Complete 09/06/16 11:46 Urine,Clean Catch Urine Culture - Preliminary Gram Negative Jeremiah Resulted Laboratory Tests 09/07/16 10:15: Arterial Blood pH 7.490H, Arterial Blood Partial Pressure CO2 30.8L, Arterial Blood Partial Pressure O2 115.8H, Arterial Blood HCO3 23.0, Arterial Blood Oxygen Saturation 97.5, Arterial Blood Base Excess 0.2, Gary Test Positive 09/07/16 10:20: Lactic Acid Level 1.10 09/07/16 23:35: Vancomycin Level Trough 20.6H 09/08/16 03:10: White Blood Count 10.2, Red Blood Count 2.84L, Hemoglobin 9.4L, Hematocrit 26.9L , Mean Corpuscular Volume 95, Mean Corpuscular Hemoglobin 33.1H, Mean Corpuscular Hemoglobin Concent 35.0, Red Cell Distribution Width 11.5L, Platelet Count 178, Mean Platelet Volume 5.3L, Neutrophils (%) (Auto) 80.8H, Lymphocytes (%) (Auto) 13.7L, Monocytes (%) (Auto) 4.7, Eosinophils (%) (Auto) 0.5, Basophils (%) (Auto) 0.3, Sodium Level 138, Potassium Level 3.5, Chloride Level 103, Carbon Dioxide Level 24, Anion Gap 11, Blood Urea Nitrogen 14, Creatinine 0.7, Estimat Glomerular Filtration Rate > 60, Glucose Level 130H, Calcium Level 6.8L, Total Bilirubin 0.4, Aspartate Amino Transf (AST/SGOT) 7, Alanine Aminotransferase (ALT/SGPT) 5, Alkaline Phosphatase 65, Total Protein 5.7L, Albumin 1.3L, Globulin 4.4, Albumin/Globulin Ratio 0.2L Current Medications Medications (Trade) Dose Ordered Sig/Mili Route PRN Reason Start Time Stop Time Status Last Admin Dose Admin Acetaminophen (Tylenol) 650 mg Q4H PRN ORAL Mild Pain/Temp > 100.5 09/06/16 14:45 10/06/16 14:44 Albuterol/ Ipratropium (DuoNeb 0.5-3(2.5)mg/3ml) 3 ml Q4HRT HHN 09/06/16 15:00 09/11/16 14:59 09/08/16 07:13 Brimonidine Tartrate (Alphagan) 1 drop Q8HR BOTH EYES 09/06/16 22:00 10/06/16 21:59 09/08/16 05:53 Carbidopa/Levodopa (Sinemet CR 50/ 200) 1 ea Q12HR ORAL 09/06/16 21:00 10/06/16 20:59 09/08/16 08:39 Dextrose (Dextrose 50%) STAT PRN IV Hypoglycemia 09/06/16 15:15 10/06/16 15:14 09/07/16 05:22 Docusate Sodium 100 mg 100 mg TWICE A DAY ORAL 09/07/16 09:00 10/07/16 08:59 09/08/16 08:39 Heparin Sodium (Porcine) (Heparin 5000 units/ml) 5,000 units EVERY 12 HOURS SUBQ 09/07/16 09:00 10/07/16 08:59 09/08/16 08:43 Insulin Aspart (NovoLOG) BEFORE MEALS AND HS SUBQ 09/06/16 16:30 10/06/16 16:29 09/08/16 06:41 Losartan Potassium 50 mg 50 mg DAILY ORAL 09/07/16 09:00 10/07/16 08:59 09/08/16 08:38 Piperacillin Sod/ Tazobactam Sod/ Dextrose (Zosyn/D5W) 110 ml @ 27.5 mls/hr EVERY 8 HOURS IVPB 09/06/16 17:00 09/13/16 16:59 09/08/16 05:53 Promethazine HCl/ Dextromethorphan (Phenergan DM) 6.25 mg Q6H PRN ORAL For Cough 09/06/16 14:45 10/06/16 14:44 Ranitidine HCl 150 mg 150 mg BEDTIME ORAL 09/06/16 21:00 10/06/16 20:59 09/07/16 20:32 Sodium Chloride (Sodium Chloride 1000ml bag) 1,000 ml @ 75 mls/hr [id number] IV 09/06/16 15:30 10/06/16 15:29 09/08/16 06:24 Tamsulosin HCl (Flomax) 0.4 mg BEDTIME ORAL 09/06/16 21:00 10/06/16 20:59 09/07/16 20:32 Timolol Maleate (Timoptic 0.5% Op Soln) 1 drop Q12HR BOTH EYES 09/06/16 21:00 10/06/16 20:59 09/08/16 08:39 Vancomycin HCl (Vanco rx to dose) 1 ea DAILY PRN MISC Per rx protocol 09/06/16 14:45 10/06/16 14:44 Vancomycin HCl/ Dextrose (Vancomycin/D5W) 275 ml @ 183.708 mls/hr Q12HR@0000,1200 IVPB 09/07/16 00:00 09/12/16 00:00 09/08/16 01:04 STEPHANIE BRAUN September 08, 2016 08:55
--- NOTE | 2016-09-08 09:06 | Infectious Diseases Prog Note ---
Assessment/Plan Assessment/Plan A: Sepsis UTI Pneumonia HPN DM Anemia s/p CVA P: continue Vancomycin & Zosyn will f/u cultures Subjective ROS Limited/Unobtainable: Yes Respiratory: Reports: dry cough Allergies: Coded Allergies: No Known Allergies (Unverified , 09/06/16) Objective Vital Signs Last 24 Hour Vital Signs Date Time Temp Pulse Resp B/P Pulse Ox O2 Delivery O2 Flow Rate FiO2 09/08/16 08:38 153/75 09/08/16 08:33 97.4 76 18 153/75 98 Nasal Cannula 2.0 76 09/08/16 07:13 Nasal Cannula 2.0 28 09/08/16 07:13 82 18 97 Nasal Cannula 2.0 28 09/08/16 07:13 82 18 97 Nasal Cannula 2.0 28 09/08/16 07:13 97 Nasal Cannula 2.0 28 09/08/16 04:16 97.4 81 18 139/72 97 Nasal Cannula 2.0 09/08/16 04:00 40 09/08/16 04:00 16 09/08/16 03:20 Nasal Cannula 2.0 09/08/16 03:20 Nasal Cannula 2.0 09/08/16 00:00 82 09/08/16 00:00 40 09/08/16 00:00 97.6 82 18 134/74 95 Nasal Cannula 2.0 09/07/16 23:07 Nasal Cannula 2.0 09/07/16 23:07 Nasal Cannula 2.0 09/07/16 20:13 97.7 80 16 127/71 95 Nasal Cannula 2.0 09/07/16 20:00 40 09/07/16 20:00 79 09/07/16 19:34 80 16 99 Nasal Cannula 2.0 09/07/16 19:27 76 16 99 Nasal Cannula 2.0 09/07/16 19:27 Nasal Cannula 4.0 09/07/16 19:27 97 Nasal Cannula 4.0 09/07/16 16:15 97.3 78 23 117/65 98 Nasal Cannula 2.0 78 09/07/16 16:00 40 09/07/16 16:00 75 09/07/16 15:32 78 20 99 Nasal Cannula 2.0 09/07/16 15:22 72 20 99 Nasal Cannula 2.0 09/07/16 12:00 40 09/07/16 12:00 66 09/07/16 11:47 98.6 74 22 113/74 96 Nasal Cannula 2.0 74 09/07/16 11:30 76 20 100 Nasal Cannula 2.0 09/07/16 11:20 76 22 98 Nasal Cannula 2.0 09/07/16 09:18 97 Nasal Cannula 4.0 09/07/16 09:17 Nasal Cannula 4.0 Height (Feet): 5 Height (Inches): 6.00 Weight (Pounds): 139 General Appearance: no acute distress HEENT: mucous membranes moist Respiratory/Chest: rhonchi - bilaterally Cardiovascular: normal rate Abdomen: soft, non tender Extremities: no edema Neurologic/Psychiatric: other - sleeping Microbiology Date/Time Source Procedure Growth Status 09/06/16 11:36 Blood Blood Culture - Preliminary NO GROWTH AFTER 24 HOURS Resulted 09/06/16 11:36 Blood Blood Culture - Preliminary NO GROWTH AFTER 24 HOURS Resulted 09/06/16 11:46 Nasal Nares MRSA Culture - Final NO METHICILLIN RESISTANT STAPH AUREUS... Complete 09/06/16 11:46 Urine,Clean Catch Urine Culture - Preliminary Gram Negative Jeremiah Resulted Laboratory Tests Test 09/07/16 10:15 09/07/16 10:20 09/07/16 23:35 09/08/16 03:10 Arterial Blood pH 7.490 (7.350-7.450) Arterial Blood Partial Pressure CO2 30.8 mmHg (35.0-45.0) L Arterial Blood Partial Pressure O2 115.8 mmHg (75.0-100.0) H Arterial Blood HCO3 23.0 mmol/L (22.0-26.0) Arterial Blood Oxygen Saturation 97.5 % (92.0-98.0) Arterial Blood Base Excess 0.2 Gary Test Positive Lactic Acid Level 1.10 mmol/L (0.66-2.22) Vancomycin Level Trough 20.6 ug/mL (5.0-12.0) H White Blood Count 10.2 K/UL (4.8-10.8) Red Blood Count 2.84 M/UL (4.70-6.10) L Hemoglobin 9.4 G/DL (14.2-18.0) L Hematocrit 26.9 % (42.0-52.0) L Mean Corpuscular Volume 95 FL (80-99) Mean Corpuscular Hemoglobin 33.1 PG (27.0-31.0) H Mean Corpuscular Hemoglobin Concent 35.0 G/DL (32.0-36.0) Red Cell Distribution Width 11.5 % (11.6-14.8) L Platelet Count 178 K/UL (150-450) Mean Platelet Volume 5.3 FL (6.5-10.1) L Neutrophils (%) (Auto) 80.8 % (45.0-75.0) H Lymphocytes (%) (Auto) 13.7 % (20.0-45.0) L Monocytes (%) (Auto) 4.7 % (1.0-10.0) Eosinophils (%) (Auto) 0.5 % (0.0-3.0) Basophils (%) (Auto) 0.3 % (0.0-2.0) Sodium Level 138 mEQ/L (135-145) Potassium Level 3.5 mEQ/L (3.4-4.9) Chloride Level 103 mEQ/L (98-107) Carbon Dioxide Level 24 mEQ/L (20-30) Anion Gap 11 (5-15) Blood Urea Nitrogen 14 mg/dL (7-23) Creatinine 0.7 mg/dL (0.7-1.2) Estimat Glomerular Filtration Rate > 60 mL/min (>60) Glucose Level 130 mg/dL (74-106) H Calcium Level 6.8 mg/dL (8.6-10.2) L Total Bilirubin 0.4 mg/dL (0.0-1.2) Aspartate Amino Transf (AST/SGOT) 7 U/L (5-40) Alanine Aminotransferase (ALT/SGPT) 5 U/L (3-41) Alkaline Phosphatase 65 U/L (40-129) Total Protein 5.7 g/dL (6.6-8.7) L Albumin 1.3 g/dL (3.5-5.2) L Globulin 4.4 g/dL Albumin/Globulin Ratio 0.2 (1.0-2.7) L Current Medications Medications (Trade) Dose Ordered Sig/Mili Route PRN Reason Start Time Stop Time Status Last Admin Dose Admin Acetaminophen (Tylenol) 650 mg Q4H PRN ORAL Mild Pain/Temp > 100.5 09/06/16 14:45 10/06/16 14:44 Albuterol/ Ipratropium (DuoNeb 0.5-3(2.5)mg/3ml) 3 ml Q4HRT HHN 09/06/16 15:00 09/11/16 14:59 09/08/16 07:13 Brimonidine Tartrate (Alphagan) 1 drop Q8HR BOTH EYES 09/06/16 22:00 10/06/16 21:59 09/08/16 05:53 Carbidopa/Levodopa (Sinemet CR 50/ 200) 1 ea Q12HR ORAL 09/06/16 21:00 10/06/16 20:59 09/08/16 08:39 Dextrose (Dextrose 50%) STAT PRN IV Hypoglycemia 09/06/16 15:15 10/06/16 15:14 09/07/16 05:22 Docusate Sodium 100 mg 100 mg TWICE A DAY ORAL 09/07/16 09:00 10/07/16 08:59 09/08/16 08:39 Heparin Sodium (Porcine) (Heparin 5000 units/ml) 5,000 units EVERY 12 HOURS SUBQ 09/07/16 09:00 10/07/16 08:59 09/08/16 08:43 Insulin Aspart (NovoLOG) BEFORE MEALS AND HS SUBQ 09/06/16 16:30 10/06/16 16:29 09/08/16 06:41 Losartan Potassium 50 mg 50 mg DAILY ORAL 09/07/16 09:00 10/07/16 08:59 09/08/16 08:38 Piperacillin Sod/ Tazobactam Sod/ Dextrose (Zosyn/D5W) 110 ml @ 27.5 mls/hr EVERY 8 HOURS IVPB 09/06/16 17:00 09/13/16 16:59 09/08/16 05:53 Promethazine HCl/ Dextromethorphan (Phenergan DM) 6.25 mg Q6H PRN ORAL For Cough 09/06/16 14:45 10/06/16 14:44 Ranitidine HCl 150 mg 150 mg BEDTIME ORAL 09/06/16 21:00 10/06/16 20:59 09/07/16 20:32 Sodium Chloride (Sodium Chloride 1000ml bag) 1,000 ml @ 75 mls/hr [id number] IV 09/06/16 15:30 10/06/16 15:29 09/08/16 06:24 Tamsulosin HCl (Flomax) 0.4 mg BEDTIME ORAL 09/06/16 21:00 10/06/16 20:59 09/07/16 20:32 Timolol Maleate (Timoptic 0.5% Op Soln) 1 drop Q12HR BOTH EYES 09/06/16 21:00 10/06/16 20:59 09/08/16 08:39 Vancomycin HCl (Vanco rx to dose) 1 ea DAILY PRN MISC Per rx protocol 09/06/16 14:45 10/06/16 14:44 Vancomycin HCl/ Dextrose (Vancomycin/D5W) 275 ml @ 183.708 mls/hr Q12HR@0000,1200 IVPB 09/07/16 00:00 09/12/16 00:00 09/08/16 01:04 RANDALL MCKEON September 08, 2016 09:06
[2016-09-08 11:48] VITALS: BP 128/78
[2016-09-08 16:06] VITALS: BP 132/78
[2016-09-08] MEDS ORDERED: NS 275ml ONE (16:30)
[2016-09-08 20:00] VITALS: BP 152/85
[2016-09-08] MEDS: Tamsulosin 0.4mg cap ORAL SCH (20:41)
[2016-09-09] VITALS: BP 144/83
[2016-09-09] MEDS ORDERED: Vancomycin 750 MG in D5W 275 ML IVPB SCH ×2
[2016-09-09 04:00] VITALS: BP 157/83
[2016-09-09 05:21] LABS: BASOPHILS % (AUTO) 0.6 % (0.0-2.0); EOSINOPHILS % (AUTO) 0.8 % (0.0-3.0); LYMPHOCYTES % (AUTO) 23.3 % (20.0-45.0); MEAN CORPUSCULAR HEMOGLOBIN 31.9 PG (27.0-31.0); MEAN CORPUSCULAR HGB CONC 33.3 G/DL (32.0-36.0); MEAN CORPUSCULAR VOLUME 96 FL (80-99); MEAN PLATELET VOLUME 5.5 FL (6.5-10.1); MONOCYTES % (AUTO) 5.8 % (1.0-10.0); NEUTROPHILS % (AUTO) 69.5 % (45.0-75.0); PLATELET COUNT 162 K/UL (150-450); RED BLOOD COUNT 2.94 M/UL (4.70-6.10); RED CELL DISTRIBUTION WIDTH 11.7 % (11.6-14.8); WHITE BLOOD COUNT 7.1 K/UL (4.8-10.8)
[2016-09-09 05:55] LABS: ALANINE AMINOTRANSFERASE 5 U/L (3-41); ALBUMIN/GLOBULIN RATIO 0.3 (1.0-2.7); ANION GAP 13 (5-15); ASPARTATE AMINO TRANSFERASE 6 U/L (5-40); CALCIUM 6.9 mg/dL (8.6-10.2); CARBON DIOXIDE 21 mEQ/L (20-30); CHLORIDE 101 mEQ/L (98-107); CREATININE 0.7 mg/dL (0.7-1.2); GLOMERULAR FILTRATION RATE > 60 mL/min (>60); HEMOLYSIS 19; POTASSIUM 3.9 mEQ/L (3.4-4.9); SODIUM 135 mEQ/L (135-145); TOTAL PROTEIN 5.8 g/dL (6.6-8.7)
[2016-09-09] MEDS: Brimonidine 0.2% Opth Sol BOTH EYES SCH ×3 (06:26→22:00)
[2016-09-09] MEDS: Piperacillin/Tazobactam 3.375 GM in D5W 110 ML IVPB SCH (06:26)
[2016-09-09] MEDS: NovoLOG Insulin Flexpen SUBQ SCH ×4 (06:28→21:00)
[2016-09-09] MEDS: DuoNeb 0.5-3(2.5)mg/3ml neb HHN SCH ×5 (07:15→23:00)
[2016-09-09 08:00] VITALS: BP 145/72
[2016-09-09] MEDS: Losartan 50mg tab ORAL SCH (08:50)
[2016-09-09] MEDS: Heparin 5000 units/ml inj SUBQ SCH ×2 (08:52→21:23)
[2016-09-09] MEDS: Docusate 100mg cap ORAL SCH ×2 (08:52→18:02)
[2016-09-09] MEDS: Timolol 0.5% Op Soln 2.5ml BOTH EYES SCH ×2 (08:53→21:19)
--- NOTE | 2016-09-09 09:13 | Pulmonology Progress Note ---
Assessment/Plan Assessment/Plan IMPRESSION: 1. Respiratory insufficiency. 2. Evidence of congestion. 3. Noted hypoxemia. 4. Sinus tachycardia. 5. History of cerebrovascular accident with focal weakness. 6. History of diabetes. 7. Leukocytosis. 8. Possible sepsis. PLAN care noted respiratory care IV antibiotics keep negative chest imaging ordered- slightly worsened chf ?right basilar infiltrate follow up exam ID Noted wbc responding will monitor impression, plan, and exam edited and reviewed in detail care discussed with RN Subjective ROS Limited/Unobtainable: Yes Allergies: Coded Allergies: No Known Allergies (Unverified , 09/06/16) Subjective some congestion overnight events noted Objective Last 24 Hour Vital Signs Date Time Temp Pulse Resp B/P Pulse Ox O2 Delivery O2 Flow Rate FiO2 09/09/16 08:50 145/72 09/09/16 04:00 64 09/09/16 04:00 97.8 66 22 157/83 96 Nasal Cannula 2.0 09/09/16 04:00 2.0 09/09/16 03:11 Nasal Cannula 2.0 09/09/16 03:10 Nasal Cannula 2.0 09/09/16 00:00 2.0 09/09/16 00:00 65 09/09/16 00:00 97.3 74 20 144/83 96 Nasal Cannula 2.0 09/08/16 20:00 72 09/08/16 20:00 2.0 09/08/16 20:00 98.3 74 20 152/85 97 Nasal Cannula 2.0 09/08/16 19:30 97 Nasal Cannula 2.0 28 09/08/16 19:30 28 09/08/16 19:30 74 16 99 Nasal Cannula 2.0 28 09/08/16 19:30 71 16 97 Nasal Cannula 2.0 28 09/08/16 19:30 Nasal Cannula 2.0 28 09/08/16 16:06 98.1 72 17 132/78 98 Nasal Cannula 2.0 83 09/08/16 16:00 66 09/08/16 16:00 2.0 09/08/16 15:07 78 18 97 Nasal Cannula 2.0 28 09/08/16 15:07 78 18 97 Nasal Cannula 2.0 28 09/08/16 12:00 2.0 09/08/16 12:00 72 09/08/16 11:48 96.9 74 17 128/78 98 Nasal Cannula 2.0 75 09/08/16 10:40 80 18 97 Nasal Cannula 2.0 28 09/08/16 10:40 80 18 97 Nasal Cannula 2.0 28 Intake and Output 09/08/16 09/09/16 19:00 07:00 Intake Total 1687.5 ml 1190.500 ml Output Total 700 ml 1250 ml Balance 987.5 ml -59.500 ml Intake Oral 320 ml 50 ml IV Total 1367.5 ml 1140.500 ml Output Urine Total 700 ml 1250 ml Objective PHYSICAL EXAMINATION: GENERAL: A well-developed male, appears older than his stated age. NAD HEENT: Negative. The patient's extraocular movements are grossly intact. The oropharynx is clear. NECK: Supple. No adenopathy. LUNGS: With expiratory rhonchi. Moderate air entry. no wheeze symmetric CARDIOVASCULAR: S1 and S2. Regular rate and rhythm without murmurs, rubs, or gallops. ABDOMEN: Soft, nontender, and nondistended. no HSM; NABS EXTREMITIES: No cyanosis. No clubbing. No edema. NEUROLOGIC: With focal weakness. Alert. Microbiology Date/Time Source Procedure Growth Status 09/07/16 12:50 Blood Blood Culture - Preliminary NO GROWTH AFTER 24 HOURS Resulted 09/06/16 11:36 Blood Blood Culture - Preliminary NO GROWTH AFTER 48 HOURS Resulted 09/06/16 11:36 Blood Blood Culture - Preliminary NO GROWTH AFTER 48 HOURS Resulted 09/06/16 11:46 Nasal Nares MRSA Culture - Final NO METHICILLIN RESISTANT STAPH AUREUS... Complete 09/07/16 11:10 Urine,Clean Catch Urine Culture - Preliminary NO GROWTH AFTER 24 HOURS Resulted 09/06/16 11:46 Urine,Clean Catch Urine Culture - Final Proteus Mirabilis Klebsiella Pneumoniae Complete 09/06/16 11:46 Rectum VRE Culture - Final Enterococcus Faecalis - Vre Complete Laboratory Tests 09/09/16 04:20: White Blood Count 7.1, Red Blood Count 2.94L, Hemoglobin 9.4L, Hematocrit 28.2L , Mean Corpuscular Volume 96, Mean Corpuscular Hemoglobin 31.9H, Mean Corpuscular Hemoglobin Concent 33.3, Red Cell Distribution Width 11.7, Platelet Count 162, Mean Platelet Volume 5.5L, Neutrophils (%) (Auto) 69.5, Lymphocytes ( %) (Auto) 23.3, Monocytes (%) (Auto) 5.8, Eosinophils (%) (Auto) 0.8, Basophils (%) (Auto) 0.6, Sodium Level 135, Potassium Level 3.9, Chloride Level 101, Carbon Dioxide Level 21, Anion Gap 13, Blood Urea Nitrogen 8, Creatinine 0.7, Estimat Glomerular Filtration Rate > 60, Glucose Level 111H, Calcium Level 6.9L , Total Bilirubin 0.5, Aspartate Amino Transf (AST/SGOT) 6, Alanine Aminotransferase (ALT/SGPT) 5, Alkaline Phosphatase 47, Total Protein 5.8L, Albumin 1.4L, Globulin 4.4, Albumin/Globulin Ratio 0.3L Current Medications Medications (Trade) Dose Ordered Sig/Mili Route PRN Reason Start Time Stop Time Status Last Admin Dose Admin Acetaminophen (Tylenol) 650 mg Q4H PRN ORAL Mild Pain/Temp > 100.5 09/06/16 14:45 10/06/16 14:44 Albuterol/ Ipratropium (DuoNeb 0.5-3(2.5)mg/3ml) 3 ml Q4HRT HHN 09/06/16 15:00 09/11/16 14:59 09/08/16 19:30 Brimonidine Tartrate (Alphagan) 1 drop Q8HR BOTH EYES 09/06/16 22:00 10/06/16 21:59 09/09/16 06:26 Carbidopa/Levodopa (Sinemet CR 50/ 200) 1 ea Q12HR ORAL 09/06/16 21:00 10/06/16 20:59 09/09/16 08:50 Dextrose (Dextrose 50%) STAT PRN IV Hypoglycemia 09/06/16 15:15 10/06/16 15:14 09/07/16 05:22 Docusate Sodium 100 mg 100 mg TWICE A DAY ORAL 09/07/16 09:00 10/07/16 08:59 09/09/16 08:52 Heparin Sodium (Porcine) 5000 units 5,000 units EVERY 12 HOURS SUBQ 09/07/16 09:00 10/07/16 08:59 09/09/16 08:52 Insulin Aspart (NovoLOG) BEFORE MEALS AND HS SUBQ 09/06/16 16:30 10/06/16 16:29 09/08/16 20:49 Losartan Potassium 50 mg 50 mg DAILY ORAL 09/07/16 09:00 10/07/16 08:59 09/09/16 08:50 Piperacillin Sod/ Tazobactam Sod/ Dextrose (Zosyn/D5W) 110 ml @ 27.5 mls/hr EVERY 8 HOURS IVPB 09/06/16 17:00 09/13/16 16:59 09/09/16 06:26 Promethazine HCl/ Dextromethorphan (Phenergan DM) 6.25 mg Q6H PRN ORAL For Cough 09/06/16 14:45 10/06/16 14:44 09/08/16 14:35 Ranitidine HCl (Zantac) 150 mg BEDTIME ORAL 09/06/16 21:00 10/06/16 20:59 09/08/16 20:42 Sodium Chloride (Sodium Chloride 1000ml bag) 1,000 ml @ 75 mls/hr [id number] IV 09/06/16 15:30 10/06/16 15:29 09/08/16 20:50 Tamsulosin HCl (Flomax) 0.4 mg BEDTIME ORAL 09/06/16 21:00 10/06/16 20:59 09/08/16 20:41 Timolol Maleate (Timoptic 0.5% Op Soln) 1 drop Q12HR BOTH EYES 09/06/16 21:00 10/06/16 20:59 09/09/16 08:53 Vancomycin HCl (Vanco rx to dose) 1 ea DAILY PRN MISC Per rx protocol 09/06/16 14:45 10/06/16 14:44 Vancomycin HCl/ Dextrose (Vancomycin/D5W) 275 ml @ 183.708 mls/hr Q12HR@0000,1200 IVPB 09/09/16 00:00 09/14/16 00:00 09/09/16 00:08 STEPHANIE BRAUN September 09, 2016 09:13
--- NOTE | 2016-09-09 09:58 | General Progress Note ---
Assessment/Plan Problem List: (1) Sepsis ICD Codes: A41.9 - Sepsis, unspecified organism SNOMED: 02645548 (2) Toxic metabolic encephalopathy ICD Codes: G92 - Toxic encephalopathy SNOMED: 821079301 (3) Pneumonia ICD Codes: J18.9 - Pneumonia, unspecified organism SNOMED: 624909449 Status: stable, progressing Assessment/Plan iv abx follow up cultures resp care/rx swallow eval keep dry monitor cxr check npa monitor labs message left with son yesterday- no call back yet Subjective ROS Limited/Unobtainable: No Constitutional: Reports: malaise, weakness HEENT: Reports: no symptoms Cardiovascular: Reports: no symptoms Respiratory: Reports: cough, shortness of breath, sputum Gastrointestinal/Abdominal: Reports: no symptoms Genitourinary: Reports: no symptoms Neurologic/Psychiatric: Reports: pre-existing deficit Endocrine: Reports: no symptoms Hematologic/Lymphatic: Reports: no symptoms Allergies: Coded Allergies: No Known Allergies (Unverified , 09/06/16) All Systems: reviewed and negative except above Subjective no events. more alert. seems less confused. answers questions. no chest pain no obvious signs/sx of aspirtion. Objective Last 24 Hour Vital Signs Date Time Temp Pulse Resp B/P Pulse Ox O2 Delivery O2 Flow Rate FiO2 09/09/16 08:50 145/72 09/09/16 07:15 Nasal Cannula 2.0 09/09/16 07:15 Nasal Cannula 2.0 09/09/16 07:15 98 Nasal Cannula 2.0 09/09/16 07:15 Nasal Cannula 2.0 09/09/16 04:00 64 09/09/16 04:00 97.8 66 22 157/83 96 Nasal Cannula 2.0 09/09/16 04:00 2.0 09/09/16 03:11 Nasal Cannula 2.0 09/09/16 03:10 Nasal Cannula 2.0 09/09/16 00:00 2.0 09/09/16 00:00 65 09/09/16 00:00 97.3 74 20 144/83 96 Nasal Cannula 2.0 09/08/16 20:00 72 09/08/16 20:00 2.0 09/08/16 20:00 98.3 74 20 152/85 97 Nasal Cannula 2.0 09/08/16 19:30 97 Nasal Cannula 2.0 28 09/08/16 19:30 28 09/08/16 19:30 74 16 99 Nasal Cannula 2.0 09/08/16 19:30 71 16 97 Nasal Cannula 2.0 28 09/08/16 19:30 Nasal Cannula 2.0 28 09/08/16 16:06 98.1 72 17 132/78 98 Nasal Cannula 2.0 83 09/08/16 16:00 66 09/08/16 16:00 2.0 09/08/16 15:07 78 18 97 Nasal Cannula 2.0 28 09/08/16 15:07 78 18 97 Nasal Cannula 2.0 28 09/08/16 12:00 2.0 09/08/16 12:00 72 09/08/16 11:48 96.9 74 17 128/78 98 Nasal Cannula 2.0 75 09/08/16 10:40 80 18 97 Nasal Cannula 2.0 09/08/16 10:40 80 18 97 Nasal Cannula 2.0 Intake and Output 09/08/16 09/09/16 19:00 07:00 Intake Total 1687.5 ml 1190.500 ml Output Total 700 ml 1250 ml Balance 987.5 ml -59.500 ml Intake Oral 320 ml 50 ml IV Total 1367.5 ml 1140.500 ml Output Urine Total 700 ml 1250 ml Laboratory Tests 09/09/16 04:20: White Blood Count 7.1, Red Blood Count 2.94L, Hemoglobin 9.4L, Hematocrit 28.2L , Mean Corpuscular Volume 96, Mean Corpuscular Hemoglobin 31.9H, Mean Corpuscular Hemoglobin Concent 33.3, Red Cell Distribution Width 11.7, Platelet Count 162, Mean Platelet Volume 5.5L, Neutrophils (%) (Auto) 69.5, Lymphocytes ( %) (Auto) 23.3, Monocytes (%) (Auto) 5.8, Eosinophils (%) (Auto) 0.8, Basophils (%) (Auto) 0.6, Sodium Level 135, Potassium Level 3.9, Chloride Level 101, Carbon Dioxide Level 21, Anion Gap 13, Blood Urea Nitrogen 8, Creatinine 0.7, Estimat Glomerular Filtration Rate > 60, Glucose Level 111H, Calcium Level 6.9L , Total Bilirubin 0.5, Aspartate Amino Transf (AST/SGOT) 6, Alanine Aminotransferase (ALT/SGPT) 5, Alkaline Phosphatase 47, Total Protein 5.8L, Albumin 1.4L, Globulin 4.4, Albumin/Globulin Ratio 0.3L Height (Feet): 5 Height (Inches): 6.00 Weight (Pounds): 139 General Appearance: WD/WN, alert, confused Neck: supple Cardiovascular: regular rhythm Respiratory/Chest: no respiratory distress, no accessory muscle use, rhonchi - bilaterally Abdomen: normal bowel sounds, non tender, soft, no organomegaly Edema: no edema noted Arm (L), no edema noted Arm (R), no edema noted Leg (L), no edema noted Leg (R), no edema noted Pedal (L), no edema noted Pedal (R), no edema noted Generalized CHELSY DA SILVA September 09, 2016 09:58
--- NOTE | 2016-09-09 11:20 | Infectious Diseases Prog Note ---
"Assessment/Plan Assessment/Plan antibiotics : vancomycin iv, zosyn A 1. proteus | klebsiella UTI 2. leucocytosis improving 3. rectal VRE colonization 4. DM 5. HTN 6. CVA P 1. d/c vancomycin iv, zosyn 2. start and continue ceftriaxone 3 more days 3. will follow up cultures Subjective ROS Limited/Unobtainable: Yes Allergies: Coded Allergies: No Known Allergies (Unverified , 09/06/16) Objective Vital Signs Last 24 Hour Vital Signs Date Time Temp Pulse Resp B/P Pulse Ox O2 Delivery O2 Flow Rate FiO2 09/09/16 08:50 145/72 09/09/16 08:00 97.5 74 22 145/72 95 Nasal Cannula 2.0 09/09/16 08:00 67 09/09/16 07:15 Nasal Cannula 2.0 28 09/09/16 07:15 Nasal Cannula 2.0 28 09/09/16 07:15 98 Nasal Cannula 2.0 28 09/09/16 07:15 Nasal Cannula 2.0 28 09/09/16 04:00 64 09/09/16 04:00 97.8 66 22 157/83 96 Nasal Cannula 2.0 09/09/16 04:00 2.0 09/09/16 03:11 Nasal Cannula 2.0 28 09/09/16 03:10 Nasal Cannula 2.0 28 09/09/16 00:00 2.0 09/09/16 00:00 65 09/09/16 00:00 97.3 74 20 144/83 96 Nasal Cannula 2.0 09/08/16 20:00 72 09/08/16 20:00 2.0 09/08/16 20:00 98.3 74 20 152/85 97 Nasal Cannula 2.0 09/08/16 19:30 97 Nasal Cannula 2.0 28 09/08/16 19:30 28 09/08/16 19:30 74 16 99 Nasal Cannula 2.0 28 09/08/16 19:30 71 16 97 Nasal Cannula 2.0 28 09/08/16 19:30 Nasal Cannula 2.0 28 09/08/16 16:06 98.1 72 17 132/78 98 Nasal Cannula 2.0 83 09/08/16 16:00 66 09/08/16 16:00 2.0 09/08/16 15:07 78 18 97 Nasal Cannula 2.0 28 09/08/16 15:07 78 18 97 Nasal Cannula 2.0 28 09/08/16 12:00 2.0 09/08/16 12:00 72 09/08/16 11:48 96.9 74 17 128/78 98 Nasal Cannula 2.0 75 Height (Feet): 5 Height (Inches): 6.00 Weight (Pounds): 139 Respiratory/Chest: lungs clear Cardiovascular: normal rate, regular rhythm, no gallop/murmur Abdomen: soft, non tender Extremities: no edema Microbiology Date/Time Source Procedure Growth Status 09/07/16 12:50 Blood Blood Culture - Preliminary NO GROWTH AFTER 24 HOURS Resulted 09/06/16 11:36 Blood Blood Culture - Preliminary NO GROWTH AFTER 48 HOURS Resulted 09/06/16 11:36 Blood Blood Culture - Preliminary NO GROWTH AFTER 48 HOURS Resulted 09/06/16 11:46 Nasal Nares MRSA Culture - Final NO METHICILLIN RESISTANT STAPH AUREUS... Complete 09/07/16 11:10 Urine,Clean Catch Urine Culture - Preliminary NO GROWTH AFTER 24 HOURS Resulted 09/06/16 11:46 Urine,Clean Catch Urine Culture - Final Proteus Mirabilis Klebsiella Pneumoniae Complete 09/06/16 11:46 Rectum VRE Culture - Final Enterococcus Faecalis - Vre Complete Laboratory Tests Test 09/09/16 04:20 White Blood Count 7.1 K/UL (4.8-10.8) Red Blood Count 2.94 M/UL (4.70-6.10) L Hemoglobin 9.4 G/DL (14.2-18.0) L Hematocrit 28.2 % (42.0-52.0) L Mean Corpuscular Volume 96 FL (80-99) Mean Corpuscular Hemoglobin 31.9 PG (27.0-31.0) H Mean Corpuscular Hemoglobin Concent 33.3 G/DL (32.0-36.0) Red Cell Distribution Width 11.7 % (11.6-14.8) Platelet Count 162 K/UL (150-450) Mean Platelet Volume 5.5 FL (6.5-10.1) L Neutrophils (%) (Auto) 69.5 % (45.0-75.0) Lymphocytes (%) (Auto) 23.3 % (20.0-45.0) Monocytes (%) (Auto) 5.8 % (1.0-10.0) Eosinophils (%) (Auto) 0.8 % (0.0-3.0) Basophils (%) (Auto) 0.6 % (0.0-2.0) Sodium Level 135 mEQ/L (135-145) Potassium Level 3.9 mEQ/L (3.4-4.9) Chloride Level 101 mEQ/L (98-107) Carbon Dioxide Level 21 mEQ/L (20-30) Anion Gap 13 (5-15) Blood Urea Nitrogen 8 mg/dL (7-23) Creatinine 0.7 mg/dL (0.7-1.2) Estimat Glomerular Filtration Rate > 60 mL/min (>60) Glucose Level 111 mg/dL (74-106) H Calcium Level 6.9 mg/dL (8.6-10.2) L Total Bilirubin 0.5 mg/dL (0.0-1.2) Aspartate Amino Transf (AST/SGOT) 6 U/L (5-40) Alanine Aminotransferase (ALT/SGPT) 5 U/L (3-41) Alkaline Phosphatase 47 U/L (40-129) Total Protein 5.8 g/dL (6.6-8.7) L Albumin 1.4 g/dL (3.5-5.2) L Globulin 4.4 g/dL Albumin/Globulin Ratio 0.3 (1.0-2.7) L [place] HYATT September 09, 2016 11:20"
[2016-09-09 12:00] VITALS: BP 149/77
[2016-09-09 16:00] VITALS: BP 140/81
[2016-09-09 20:00] VITALS: BP 161/86
[2016-09-09] MEDS: Tamsulosin 0.4mg cap ORAL SCH (21:19)
[2016-09-10] VITALS (7 sets, daily range): BP systolic 123–165; BP diastolic 64–95
[2016-09-10] MEDS: DuoNeb 0.5-3(2.5)mg/3ml neb HHN SCH ×6 (03:00→23:00)
[2016-09-10 06:07] LABS: ALANINE AMINOTRANSFERASE 5 U/L (3-41); ALBUMIN/GLOBULIN RATIO 0.2 (1.0-2.7); ANION GAP 11 (5-15); ASPARTATE AMINO TRANSFERASE 7 U/L (5-40); CALCIUM 7.4 mg/dL (8.6-10.2); CARBON DIOXIDE 23 mEQ/L (20-30); CHLORIDE 103 mEQ/L (98-107); CREATININE 0.7 mg/dL (0.7-1.2); GLOMERULAR FILTRATION RATE > 60 mL/min (>60); HEMOLYSIS 4; POTASSIUM 3.7 mEQ/L (3.4-4.9); SODIUM 137 mEQ/L (135-145); TOTAL PROTEIN 6.2 g/dL (6.6-8.7)
[2016-09-10] MEDS: Brimonidine 0.2% Opth Sol BOTH EYES SCH ×3 (06:07→22:04)
[2016-09-10] MEDS: NovoLOG Insulin Flexpen SUBQ SCH ×4 (06:09→20:52)
--- NOTE | 2016-09-10 07:59 | Pulmonology Progress Note ---
Assessment/Plan Assessment/Plan IMPRESSION: 1. Respiratory insufficiency. 2. Evidence of congestion. 3. Noted hypoxemia. 4. Sinus tachycardia. 5. History of cerebrovascular accident with focal weakness. 6. History of diabetes. 7. Leukocytosis. 8. Possible sepsis. PLAN care noted respiratory care IV antibiotics keep negative as prior chest imaging ordered- slightly worsened chf ?right basilar infiltrate repeat chest xr for change follow up exam ID Noted wbc responding will monitor BNP- significantly elevated Lasix trial care discussed in detail impression, plan, and exam edited and reviewed in detail care discussed with RN Subjective ROS Limited/Unobtainable: Yes Allergies: Coded Allergies: No Known Allergies (Unverified , 09/06/16) Subjective some mild congestion overnight events noted no acute changes Objective Last 24 Hour Vital Signs Date Time Temp Pulse Resp B/P Pulse Ox O2 Delivery O2 Flow Rate FiO2 09/10/16 07:26 80 16 99 Nasal Cannula 2.0 09/10/16 07:16 84 16 97 Nasal Cannula 2.0 09/10/16 07:16 Nasal Cannula 2.0 09/10/16 07:15 97 Nasal Cannula 2.0 09/10/16 04:00 74 09/10/16 04:00 99.2 76 18 158/77 Room Air 09/10/16 03:09 Nasal Cannula 2.0 28 09/10/16 03:09 Nasal Cannula 2.0 28 09/10/16 00:00 72 09/10/16 00:00 99.7 74 18 161/76 98 Room Air 3.0 09/09/16 23:36 Nasal Cannula 2.0 28 09/09/16 23:36 Nasal Cannula 2.0 28 09/09/16 20:00 97.3 73 20 161/86 99 Nasal Cannula 3.0 09/09/16 20:00 73 09/09/16 19:44 Nasal Cannula 2.0 28 09/09/16 19:43 Nasal Cannula 2.0 28 09/09/16 19:43 Nasal Cannula 2.0 28 09/09/16 19:43 97 Nasal Cannula 2.0 28 09/09/16 16:00 97.7 74 20 140/81 99 Nasal Cannula 2.5 09/09/16 16:00 71 09/09/16 15:18 76 16 97 Nasal Cannula 2.0 28 09/09/16 15:18 Nasal Cannula 2.0 28 09/09/16 12:00 68 09/09/16 12:00 97.7 72 18 149/77 100 Nasal Cannula 2.5 09/09/16 11:24 74 12 98 Nasal Cannula 2.0 28 09/09/16 11:24 Nasal Cannula 2.0 28 09/09/16 08:50 145/72 09/09/16 08:00 97.5 74 22 145/72 95 Nasal Cannula 2.0 09/09/16 08:00 67 Intake and Output 09/09/16 09/10/16 19:00 07:00 Intake Total 600 ml 825 ml Output Total 850 ml 900 ml Balance -250 ml -75 ml IV Total 600 ml 825 ml Output Urine Total 850 ml 900 ml Objective PHYSICAL EXAMINATION: GENERAL: A well-developed male, appears older than his stated age. NAD HEENT: Negative. The patient's extraocular movements are grossly intact. The oropharynx is clear. NECK: Supple. No adenopathy. LUNGS: With minimal scattered rhonchi. Moderate air entry. no wheeze symmetric CARDIOVASCULAR: S1 and S2. Regular rate and rhythm without murmurs, rubs, or gallops. ABDOMEN: Soft, nontender, and nondistended. no HSM; NABS EXTREMITIES: No cyanosis. No clubbing. No edema. NEUROLOGIC: With focal weakness. Alert. Microbiology Date/Time Source Procedure Growth Status 09/07/16 12:50 Blood Blood Culture - Preliminary NO GROWTH AFTER 48 HOURS Resulted 09/07/16 11:10 Urine,Clean Catch Urine Culture - Final NO GROWTH AFTER 48 HOURS Complete Laboratory Tests 09/10/16 04:25: Sodium Level 137, Potassium Level 3.7, Chloride Level 103, Carbon Dioxide Level 23, Anion Gap 11, Blood Urea Nitrogen 8, Creatinine 0.7, Estimat Glomerular Filtration Rate > 60, Glucose Level 75, Calcium Level 7.4L, Total Bilirubin 0.4 , Aspartate Amino Transf (AST/SGOT) 7, Alanine Aminotransferase (ALT/SGPT) 5, Alkaline Phosphatase 43, Pro-B-Type Natriuretic Peptide 2464H, Total Protein 6.2L, Albumin 1.4L, Globulin 4.8, Albumin/Globulin Ratio 0.2L Current Medications Medications (Trade) Dose Ordered Sig/Mili Route PRN Reason Start Time Stop Time Status Last Admin Dose Admin Acetaminophen (Tylenol) 650 mg Q4H PRN ORAL Mild Pain/Temp > 100.5 09/06/16 14:45 10/06/16 14:44 Albuterol/ Ipratropium (DuoNeb 0.5-3(2.5)mg/3ml) 3 ml Q4HRT HHN 09/06/16 15:00 09/11/16 14:59 09/10/16 07:15 Brimonidine Tartrate (Alphagan) 1 drop Q8HR BOTH EYES 09/06/16 22:00 10/06/16 21:59 09/10/16 06:07 Carbidopa/Levodopa (Sinemet CR 50/ 200) 1 ea Q12HR ORAL 09/06/16 21:00 10/06/16 20:59 09/09/16 21:19 Dextrose (Dextrose 50%) STAT PRN IV Hypoglycemia 09/06/16 15:15 10/06/16 15:14 09/10/16 06:14 Docusate Sodium (Colace) 100 mg TWICE A DAY ORAL 09/07/16 09:00 10/07/16 08:59 09/09/16 18:02 Heparin Sodium (Porcine) (Heparin 5000 units/ml) 5,000 units EVERY 12 HOURS SUBQ 09/07/16 09:00 10/07/16 08:59 09/09/16 21:23 Insulin Aspart (NovoLOG) BEFORE MEALS AND HS SUBQ 09/06/16 16:30 10/06/16 16:29 09/08/16 20:49 Losartan Potassium 50 mg 50 mg DAILY ORAL 09/07/16 09:00 10/07/16 08:59 09/09/16 08:50 Promethazine HCl/ Dextromethorphan (Phenergan DM) 6.25 mg Q6H PRN ORAL For Cough 09/06/16 14:45 10/06/16 14:44 09/08/16 14:35 Ranitidine HCl (Zantac) 150 mg BEDTIME ORAL 09/06/16 21:00 10/06/16 20:59 09/09/16 21:20 Sodium Chloride (Sodium Chloride 1000ml bag) 1,000 ml @ 75 mls/hr [id number] IV 09/06/16 15:30 10/06/16 15:29 09/09/16 23:50 Tamsulosin HCl (Flomax) 0.4 mg BEDTIME ORAL 09/06/16 21:00 10/06/16 20:59 09/09/16 21:19 Timolol Maleate (Timoptic 0.5% Op Soln) 1 drop Q12HR BOTH EYES 09/06/16 21:00 10/06/16 20:59 09/09/16 21:19 STEPHANIE BRAUN September 10, 2016 07:59
--- NOTE | 2016-09-10 08:19 | General Progress Note ---
Assessment/Plan Problem List: (1) Sepsis ICD Codes: A41.9 - Sepsis, unspecified organism SNOMED: 23101659 (2) Toxic metabolic encephalopathy ICD Codes: G92 - Toxic encephalopathy SNOMED: 295399485 (3) Pneumonia ICD Codes: J18.9 - Pneumonia, unspecified organism SNOMED: 354278454 Status: stable, progressing Assessment/Plan iv abx follow up cultures resp care/rx swallow eval when family pressent keep dry monitor cxr dc ivf lasix monitor labs Subjective ROS Limited/Unobtainable: No Constitutional: Reports: malaise, weakness HEENT: Reports: no symptoms Cardiovascular: Reports: no symptoms Respiratory: Reports: cough, shortness of breath Gastrointestinal/Abdominal: Reports: difficulty swallowing Genitourinary: Reports: no symptoms Neurologic/Psychiatric: Reports: pre-existing deficit Endocrine: Reports: no symptoms Hematologic/Lymphatic: Reports: anemia Allergies: Coded Allergies: No Known Allergies (Unverified , 09/06/16) All Systems: reviewed and negative except above Subjective no events. more alert. seems less confused. answers questions. no chest pain no obvious signs/sx of aspirtion. off ivf. lasix ordered for elevated bnp. refused swallow eval but ate well with family yesterday. Objective Last 24 Hour Vital Signs Date Time Temp Pulse Resp B/P Pulse Ox O2 Delivery O2 Flow Rate FiO2 09/10/16 07:26 80 16 99 Nasal Cannula 2.0 09/10/16 07:16 84 16 97 Nasal Cannula 2.0 09/10/16 07:16 Nasal Cannula 2.0 09/10/16 07:15 97 Nasal Cannula 2.0 09/10/16 04:00 74 09/10/16 04:00 99.2 76 18 158/77 Room Air 09/10/16 03:09 Nasal Cannula 2.0 28 09/10/16 03:09 Nasal Cannula 2.0 28 09/10/16 00:00 72 09/10/16 00:00 99.7 74 18 161/76 98 Room Air 3.0 09/09/16 23:36 Nasal Cannula 2.0 28 09/09/16 23:36 Nasal Cannula 2.0 28 09/09/16 20:00 97.3 73 20 161/86 99 Nasal Cannula 3.0 09/09/16 20:00 73 09/09/16 19:44 Nasal Cannula 2.0 09/09/16 19:43 Nasal Cannula 2.0 09/09/16 19:43 Nasal Cannula 2.0 09/09/16 19:43 97 Nasal Cannula 2.0 09/09/16 16:00 97.7 74 20 140/81 99 Nasal Cannula 2.5 09/09/16 16:00 71 09/09/16 15:18 76 16 97 Nasal Cannula 2.0 09/09/16 15:18 Nasal Cannula 2.0 09/09/16 12:00 68 09/09/16 12:00 97.7 72 18 149/77 100 Nasal Cannula 2.5 09/09/16 11:24 74 12 98 Nasal Cannula 2.0 09/09/16 11:24 Nasal Cannula 2.0 09/09/16 08:50 145/72 Intake and Output 09/09/16 09/10/16 19:00 07:00 Intake Total 600 ml 825 ml Output Total 850 ml 900 ml Balance -250 ml -75 ml IV Total 600 ml 825 ml Output Urine Total 850 ml 900 ml Laboratory Tests 09/10/16 04:25: Sodium Level 137, Potassium Level 3.7, Chloride Level 103, Carbon Dioxide Level 23, Anion Gap 11, Blood Urea Nitrogen 8, Creatinine 0.7, Estimat Glomerular Filtration Rate > 60, Glucose Level 75, Calcium Level 7.4L, Total Bilirubin 0.4 , Aspartate Amino Transf (AST/SGOT) 7, Alanine Aminotransferase (ALT/SGPT) 5, Alkaline Phosphatase 43, Pro-B-Type Natriuretic Peptide 2464H, Total Protein 6.2L, Albumin 1.4L, Globulin 4.8, Albumin/Globulin Ratio 0.2L Height (Feet): 5 Height (Inches): 6.00 Weight (Pounds): 139 Objective General Appearance: WD/WN, alert, confused Neck: supple Cardiovascular: regular rhythm Respiratory/Chest: no respiratory distress, no accessory muscle use, rhonchi - bilaterally Abdomen: normal bowel sounds, non tender, soft, no organomegaly Edema: no edema noted Arm (L), no edema noted Arm (R), no edema noted Leg (L), no edema noted Leg (R), no edema noted Pedal (L), no edema noted Pedal (R), no edema noted Generalized CHELSY DA SILVA September 10, 2016 08:19
[2016-09-10] MEDS: Heparin 5000 units/ml inj SUBQ SCH ×2 (08:25→20:50)
[2016-09-10] MEDS: Docusate 100mg cap ORAL SCH ×2 (08:27→18:36)
[2016-09-10] MEDS: Losartan 50mg tab ORAL SCH (08:27)
[2016-09-10] MEDS: Timolol 0.5% Op Soln 2.5ml BOTH EYES SCH ×2 (08:27→20:50)
--- NOTE | 2016-09-10 09:18 | Diagnostic Imaging Report ---
Indication: SOB Technique: One view of the chest Comparison: none Findings: There is dense consolidation in the retrocardiac region. Consolidative and nodular opacities are seen at both lung bases. There is also generalized chronic appearing interstitial prominence and bronchial wall thickening. The heart size is upper limits normal. Pleural spaces are clear. Impression: Bilateral basilar parenchymal consolidation, suspect pneumonia. Chronic appearing interstitial prominence and central bronchial wall thickening, suspect on the basis of COPD changes
--- NOTE | 2016-09-10 09:18 | Diagnostic Imaging Report ---
Indication: Cough Comparison: 09/07/16 A single view chest radiograph was obtained. Findings: Right pleural effusion is present. There is interstitial edema with peribronchial cuffing and some alveolar airspace disease at the lung bases this heart is enlarged. Impression: Slightly worsening CHF
--- NOTE | 2016-09-10 10:41 | Infectious Diseases Prog Note ---
Assessment/Plan Assessment/Plan A: Sepsis resolved UTI CHF HPN DM Anemia s/p CVA P: continue Rocephin X 2 days will f/u cultures Subjective ROS Limited/Unobtainable: Yes Allergies: Coded Allergies: No Known Allergies (Unverified , 09/06/16) Objective Vital Signs Last 24 Hour Vital Signs Date Time Temp Pulse Resp B/P Pulse Ox O2 Delivery O2 Flow Rate FiO2 09/10/16 08:27 149/95 09/10/16 08:00 97.7 87 20 144/95 96 Nasal Cannula 2.0 09/10/16 08:00 78 09/10/16 07:26 80 16 99 Nasal Cannula 2.0 09/10/16 07:16 84 16 97 Nasal Cannula 2.0 09/10/16 07:16 Nasal Cannula 2.0 09/10/16 07:15 97 Nasal Cannula 2.0 09/10/16 04:00 74 09/10/16 04:00 99.2 76 18 158/77 Room Air 09/10/16 03:09 Nasal Cannula 2.0 09/10/16 03:09 Nasal Cannula 2.0 28 09/10/16 00:00 72 09/10/16 00:00 99.7 74 18 161/76 98 Room Air 3.0 09/09/16 23:36 Nasal Cannula 2.0 09/09/16 23:36 Nasal Cannula 2.0 09/09/16 20:00 97.3 73 20 161/86 99 Nasal Cannula 3.0 09/09/16 20:00 73 09/09/16 19:44 Nasal Cannula 2.0 09/09/16 19:43 Nasal Cannula 2.0 09/09/16 19:43 Nasal Cannula 2.0 28 09/09/16 19:43 97 Nasal Cannula 2.0 28 09/09/16 16:00 97.7 74 20 140/81 99 Nasal Cannula 2.5 09/09/16 16:00 71 09/09/16 15:18 76 16 97 Nasal Cannula 2.0 09/09/16 15:18 Nasal Cannula 2.0 28 09/09/16 12:00 68 09/09/16 12:00 97.7 72 18 149/77 100 Nasal Cannula 2.5 09/09/16 11:24 74 12 98 Nasal Cannula 2.0 28 09/09/16 11:24 Nasal Cannula 2.0 28 Height (Feet): 5 Height (Inches): 6.00 Weight (Pounds): 139 General Appearance: no acute distress HEENT: mucous membranes moist Respiratory/Chest: lungs clear Cardiovascular: normal rate Abdomen: soft, non tender Extremities: other - right hand edema Neurologic/Psychiatric: other - sleeping Microbiology Date/Time Source Procedure Growth Status 09/07/16 12:50 Blood Blood Culture - Preliminary NO GROWTH AFTER 48 HOURS Resulted 09/07/16 11:10 Urine,Clean Catch Urine Culture - Final NO GROWTH AFTER 48 HOURS Complete Laboratory Tests Test 09/10/16 04:25 Sodium Level 137 mEQ/L (135-145) Potassium Level 3.7 mEQ/L (3.4-4.9) Chloride Level 103 mEQ/L (98-107) Carbon Dioxide Level 23 mEQ/L (20-30) Anion Gap 11 (5-15) Blood Urea Nitrogen 8 mg/dL (7-23) Creatinine 0.7 mg/dL (0.7-1.2) Estimat Glomerular Filtration Rate > 60 mL/min (>60) Glucose Level 75 mg/dL (74-106) Calcium Level 7.4 mg/dL (8.6-10.2) L Total Bilirubin 0.4 mg/dL (0.0-1.2) Aspartate Amino Transf (AST/SGOT) 7 U/L (5-40) Alanine Aminotransferase (ALT/SGPT) 5 U/L (3-41) Alkaline Phosphatase 43 U/L (40-129) Pro-B-Type Natriuretic Peptide 2464 pg/mL (0-125) H Total Protein 6.2 g/dL (6.6-8.7) L Albumin 1.4 g/dL (3.5-5.2) L Globulin 4.8 g/dL Albumin/Globulin Ratio 0.2 (1.0-2.7) L Current Medications Medications (Trade) Dose Ordered Sig/Mili Route PRN Reason Start Time Stop Time Status Last Admin Dose Admin Acetaminophen (Tylenol) 650 mg Q4H PRN ORAL Mild Pain/Temp > 100.5 09/06/16 14:45 10/06/16 14:44 Albuterol/ Ipratropium (DuoNeb 0.5-3(2.5)mg/3ml) 3 ml Q4HRT HHN 5/26/17 15:00 09/11/16 14:59 09/10/16 07:15 Brimonidine Tartrate (Alphagan) 1 drop Q8HR BOTH EYES 09/06/16 22:00 10/06/16 21:59 09/10/16 06:07 Carbidopa/Levodopa (Sinemet CR 50/ 200) 1 ea Q12HR ORAL 09/06/16 21:00 10/06/16 20:59 09/10/16 08:27 Dextrose (Dextrose 50%) STAT PRN IV Hypoglycemia 09/06/16 15:15 10/06/16 15:14 09/10/16 06:14 Docusate Sodium (Colace) 100 mg TWICE A DAY ORAL 09/07/16 09:00 10/07/16 08:59 09/10/16 08:27 Heparin Sodium (Porcine) (Heparin 5000 units/ml) 5,000 units EVERY 12 HOURS SUBQ 09/07/16 09:00 10/07/16 08:59 09/10/16 08:25 Insulin Aspart (NovoLOG) BEFORE MEALS AND HS SUBQ 09/06/16 16:30 10/06/16 16:29 09/08/16 20:49 Losartan Potassium (Cozaar) 50 mg DAILY ORAL 09/07/16 09:00 10/07/16 08:59 09/10/16 08:27 Promethazine HCl/ Dextromethorphan (Phenergan DM) 6.25 mg Q6H PRN ORAL For Cough 09/06/16 14:45 10/06/16 14:44 09/08/16 14:35 Ranitidine HCl (Zantac) 150 mg BEDTIME ORAL 09/06/16 21:00 10/06/16 20:59 09/09/16 21:20 Tamsulosin HCl (Flomax) 0.4 mg BEDTIME ORAL 09/06/16 21:00 10/06/16 20:59 09/09/16 21:19 Timolol Maleate (Timoptic 0.5% Op Soln) 1 drop Q12HR BOTH EYES 09/06/16 21:00 10/06/16 20:59 09/10/16 08:27 RANDALL MCKEON September 10, 2016 10:41
--- NOTE | 2016-09-10 12:36 | Diagnostic Imaging Report ---
APPROVED REPORT CPT Code: 38190 Present Symptoms Lower Extremity Pain: Bilateral BILATERAL: Imaging reveals a patent deep venous system bilaterally. There is no evidence of thrombus within the femoral, popliteal or tibial segments. The greater saphenous veins are also within normal limits. Doppler indicates normal spontaneous flow within these segments.
[2016-09-10] MEDS ORDERED: cefTRIAXone 1 GM in D5W 55 ML IVPB SCH (14:00)
[2016-09-10] MEDS ORDERED: NS 275ml ONE (17:01)
[2016-09-10] MEDS ORDERED: Tubing IV Secondary IV ONE (17:01)
[2016-09-10] MEDS ORDERED: Promethazine/DM 6.25mg/5ml ORAL PRN (20:45)
[2016-09-10] MEDS: Tamsulosin 0.4mg cap ORAL SCH (20:50)
--- NOTE | 2016-09-11 01:00 | Progress Note ---
DATE: 09/10/2016 CARDIOLOGY PROGRESS NOTE SUBJECTIVE: The patient was seen and evaluated. Discussed with Dr. Upton. Antibiotic regimen was confirmed. The patient has had difficulty eating with staff, however, eats well with family members. A repeat swallow evaluation with family members is planned. The patient has been somewhat more congested today. OBJECTIVE: VITAL SIGNS: Blood pressure 165/85, pulse 84, respirations 19, and afebrile. LUNGS: Diminished breath sounds with few rales. HEART: Regular rhythm and rate. Normal S1 and S2 with a fourth heart sound. ABDOMEN: Soft. EXTREMITIES: Trace dependent edema. LABORATORY DATA: White count 7.1 and hemoglobin 9.4. Sodium 137, potassium 3.7, bicarbonate 23, BUN 8, and creatinine 0.7. Pro-natriuretic peptide 2464. Albumin 1.4. IMPRESSION: 1. Healthcare-acquired pneumonia. 2. Dysphagia. 3. Acute diastolic congestive heart failure. 4. Hypertensive heart disease. 5. Anemia. PLAN: 1. Discontinue intravenous fluids. 2. Cautious diuresis. 3. Antimicrobials. 4. Respiratory hygiene. 5. Swallow evaluation. 6. Aspiration precautions. 7. DVT prophylaxis. Felix Carranza M.D. DR: ILYA JOB#: [id number] CC:
[2016-09-11] MEDS: DuoNeb 0.5-3(2.5)mg/3ml neb HHN SCH ×6 (03:00→23:35)
[2016-09-11 03:58] VITALS: BP 155/88
[2016-09-11] MEDS: Brimonidine 0.2% Opth Sol BOTH EYES SCH ×3 (04:52→21:52)
[2016-09-11] MEDS: NovoLOG Insulin Flexpen SUBQ SCH ×4 (04:53→21:00)
[2016-09-11 06:32] LABS: ALANINE AMINOTRANSFERASE 5 U/L (3-41); ALBUMIN/GLOBULIN RATIO 0.3 (1.0-2.7); ANION GAP 12 (5-15); ASPARTATE AMINO TRANSFERASE 7 U/L (5-40); CALCIUM 7.6 mg/dL (8.6-10.2); CARBON DIOXIDE 26 mEQ/L (20-30); CHLORIDE 100 mEQ/L (98-107); CREATININE 0.7 mg/dL (0.7-1.2); GLOMERULAR FILTRATION RATE > 60 mL/min (>60); HEMOLYSIS 5; POTASSIUM 3.7 mEQ/L (3.4-4.9); SODIUM 138 mEQ/L (135-145); TOTAL PROTEIN 6.7 g/dL (6.6-8.7)
[2016-09-11] MEDS ORDERED: KCl 10% 40mEq/30ml liquid ORAL ONE (08:00)
[2016-09-11 08:07] VITALS: BP 156/84
[2016-09-11] MEDS: Timolol 0.5% Op Soln 2.5ml BOTH EYES SCH ×2 (08:38→21:03)
[2016-09-11] MEDS: Docusate 100mg cap ORAL SCH ×2 (08:39→17:03)
[2016-09-11] MEDS: Losartan 50mg tab ORAL SCH (08:40)
[2016-09-11] MEDS: Heparin 5000 units/ml inj SUBQ SCH ×2 (08:43→21:01)
--- NOTE | 2016-09-11 08:53 | Pulmonology Progress Note ---
Assessment/Plan Assessment/Plan IMPRESSION: 1. Respiratory insufficiency. 2. Evidence of congestion. 3. Noted hypoxemia. 4. Sinus tachycardia. 5. History of cerebrovascular accident with focal weakness. 6. History of diabetes. 7. Leukocytosis. 8. Possible sepsis. PLAN care noted respiratory care IV antibiotics maintain negative in and out duplex negative follow up on chest xr follow up exam ID Noted will monitor BNP- significantly elevated Lasix trial ? continue care discussed in detail impression, plan, and exam edited and reviewed in detail care discussed with RN Subjective ROS Limited/Unobtainable: Yes Allergies: Coded Allergies: No Known Allergies (Unverified , 09/06/16) Subjective reduced congestion overnight events noted no acute changes Objective Last 24 Hour Vital Signs Date Time Temp Pulse Resp B/P Pulse Ox O2 Delivery O2 Flow Rate FiO2 09/11/16 08:40 156/84 09/11/16 08:07 97.3 81 20 156/84 98 Nasal Cannula 2.0 09/11/16 07:18 82 16 99 Nasal Cannula 2.0 09/11/16 07:09 98 Nasal Cannula 2.0 09/11/16 07:09 82 14 97 Nasal Cannula 2.0 28 09/11/16 07:09 Nasal Cannula 2.0 09/11/16 04:00 77 09/11/16 03:58 98.2 82 19 155/88 96 Nasal Cannula 2.0 09/11/16 03:27 Nasal Cannula 2.0 28 09/11/16 03:27 Nasal Cannula 2.0 28 09/11/16 00:05 Nasal Cannula 2.0 28 09/11/16 00:05 Nasal Cannula 2.0 28 09/11/16 00:00 75 09/10/16 23:55 97.5 81 20 131/64 98 Nasal Cannula 2.0 09/10/16 20:00 79 09/10/16 19:58 97.7 84 19 165/85 97 Nasal Cannula 2.0 09/10/16 19:43 Nasal Cannula 2.0 28 09/10/16 19:42 Nasal Cannula 2.0 09/10/16 19:42 98 Nasal Cannula 2.0 09/10/16 19:42 Nasal Cannula 2.0 28 09/10/16 16:00 82 09/10/16 16:00 97.9 84 18 129/74 99 Nasal Cannula 2.0 09/10/16 15:20 Nasal Cannula 2.0 28 09/10/16 15:20 Nasal Cannula 2.0 28 09/10/16 11:56 84 09/10/16 11:55 97.0 98 20 123/78 98 Nasal Cannula 2.0 09/10/16 11:17 84 16 99 Nasal Cannula 2.0 09/10/16 11:06 80 16 96 Nasal Cannula 2.0 Intake and Output 09/10/16 09/11/16 19:00 07:00 Intake Total 140 ml Output Total 2000 ml 400 ml Balance -1860 ml -400 ml Intake Oral 30 ml IV Total 110 ml Output Urine Total 2000 ml 400 ml Objective PHYSICAL EXAMINATION: GENERAL: A well-developed male, appears older than his stated age. NAD HEENT: Negative. The patient's extraocular movements are grossly intact. The oropharynx is clear. NECK: Supple. No adenopathy. LUNGS: With some rhonchi. Moderate air entry. no wheeze symmetric CARDIOVASCULAR: S1 and S2. Regular rate and rhythm without murmurs, rubs, or gallops. ABDOMEN: Soft, nontender, and nondistended. no HSM; NABS EXTREMITIES: No cyanosis. No clubbing. No edema. NEUROLOGIC: With focal weakness. Alert. Laboratory Tests 09/11/16 05:20: Sodium Level 138, Potassium Level 3.7, Chloride Level 100, Carbon Dioxide Level 26, Anion Gap 12, Blood Urea Nitrogen 10, Creatinine 0.7, Estimat Glomerular Filtration Rate > 60, Glucose Level 85, Calcium Level 7.6L, Magnesium Level 1.4L , Total Bilirubin 0.4, Aspartate Amino Transf (AST/SGOT) 7, Alanine Aminotransferase (ALT/SGPT) 5, Alkaline Phosphatase 44, Total Protein 6.7, Albumin 1.6L, Globulin 5.1, Albumin/Globulin Ratio 0.3L Current Medications Medications (Trade) Dose Ordered Sig/Mili Route PRN Reason Start Time Stop Time Status Last Admin Dose Admin Acetaminophen (Tylenol) 650 mg Q4H PRN ORAL Mild Pain/Temp > 100.5 09/10/16 18:45 10/10/16 18:44 Albuterol/ Ipratropium (DuoNeb 0.5-3(2.5)mg/3ml) 3 ml Q4HRT HHN 09/10/16 19:00 09/15/16 18:59 09/11/16 07:09 Brimonidine Tartrate (Alphagan) 1 drop Q8HR BOTH EYES 09/10/16 22:00 10/10/16 21:59 09/11/16 04:52 Carbidopa/Levodopa (Sinemet CR 50/ 200) 1 ea Q12HR ORAL 09/10/16 21:00 10/10/16 20:59 09/11/16 08:39 Ceftriaxone Sodium/Dextrose (Rocephin/D5W) 55 ml @ 110 mls/hr Q24H IVPB 09/11/16 14:00 09/18/16 13:59 Dextrose (Dextrose 50%) STAT PRN IV Hypoglycemia 09/11/16 15:15 10/11/16 15:14 Docusate Sodium (Colace) 100 mg TWICE A DAY ORAL 09/10/16 18:30 10/10/16 18:29 09/11/16 08:39 Heparin Sodium (Porcine) (Heparin 5000 units/ml) 5,000 units EVERY 12 HOURS SUBQ 09/10/16 21:00 10/10/16 20:59 09/11/16 08:43 Insulin Aspart (NovoLOG) BEFORE MEALS AND HS SUBQ 09/10/16 21:00 10/10/16 20:59 Losartan Potassium (Cozaar) 100 mg DAILY ORAL 09/11/16 09:00 10/11/16 08:59 09/11/16 08:40 Promethazine HCl/ Dextromethorphan (Phenergan DM) 6.25 mg Q6H PRN ORAL For Cough 09/10/16 20:45 10/10/16 20:44 Ranitidine HCl (Zantac) 150 mg BEDTIME ORAL 09/10/16 21:00 10/10/16 20:59 09/10/16 20:51 Tamsulosin HCl (Flomax) 0.4 mg BEDTIME ORAL 09/10/16 21:00 10/10/16 20:59 09/10/16 20:50 Timolol Maleate (Timoptic 0.5% Op Soln) 1 drop Q12HR BOTH EYES 09/10/16 21:00 10/10/16 20:59 09/11/16 08:38 STEPHANIE BRAUN September 11, 2016 08:53
[2016-09-11] MEDS ORDERED: Losartan 50mg tab ORAL SCH (09:00)
--- NOTE | 2016-09-11 10:09 | Infectious Diseases Prog Note ---
Assessment/Plan Assessment/Plan A: Sepsis resolved UTI CHF HPN DM Anemia s/p CVA VRE colonization P: continue Rocephin X 1 dose agree wiyh discharge Subjective ROS Limited/Unobtainable: Yes Allergies: Coded Allergies: No Known Allergies (Unverified , 09/06/16) Objective Vital Signs Last 24 Hour Vital Signs Date Time Temp Pulse Resp B/P Pulse Ox O2 Delivery O2 Flow Rate FiO2 09/11/16 08:40 156/84 09/11/16 08:07 97.3 81 20 156/84 98 Nasal Cannula 2.0 09/11/16 07:18 82 16 99 Nasal Cannula 2.0 09/11/16 07:09 98 Nasal Cannula 2.0 09/11/16 07:09 82 14 97 Nasal Cannula 2.0 28 09/11/16 07:09 Nasal Cannula 2.0 09/11/16 04:00 77 09/11/16 03:58 98.2 82 19 155/88 96 Nasal Cannula 2.0 09/11/16 03:27 Nasal Cannula 2.0 28 09/11/16 03:27 Nasal Cannula 2.0 28 09/11/16 00:05 Nasal Cannula 2.0 28 09/11/16 00:05 Nasal Cannula 2.0 28 09/11/16 00:00 75 09/10/16 23:55 97.5 81 20 131/64 98 Nasal Cannula 2.0 09/10/16 20:00 79 09/10/16 19:58 97.7 84 19 165/85 97 Nasal Cannula 2.0 09/10/16 19:43 Nasal Cannula 2.0 28 09/10/16 19:42 Nasal Cannula 2.0 09/10/16 19:42 98 Nasal Cannula 2.0 09/10/16 19:42 Nasal Cannula 2.0 28 09/10/16 16:00 82 09/10/16 16:00 97.9 84 18 129/74 99 Nasal Cannula 2.0 09/10/16 15:20 Nasal Cannula 2.0 28 09/10/16 15:20 Nasal Cannula 2.0 28 09/10/16 11:56 84 09/10/16 11:55 97.0 98 20 123/78 98 Nasal Cannula 2.0 09/10/16 11:17 84 16 99 Nasal Cannula 2.0 09/10/16 11:06 80 16 96 Nasal Cannula 2.0 Height (Feet): 5 Height (Inches): 6.00 Weight (Pounds): 139 General Appearance: no acute distress HEENT: mucous membranes moist Respiratory/Chest: lungs clear Cardiovascular: normal rate Abdomen: soft, non tender Extremities: no edema Neurologic/Psychiatric: alert, responsive Laboratory Tests Test 09/11/16 05:20 Sodium Level 138 mEQ/L (135-145) Potassium Level 3.7 mEQ/L (3.4-4.9) Chloride Level 100 mEQ/L (98-107) Carbon Dioxide Level 26 mEQ/L (20-30) Anion Gap 12 (5-15) Blood Urea Nitrogen 10 mg/dL (7-23) Creatinine 0.7 mg/dL (0.7-1.2) Estimat Glomerular Filtration Rate > 60 mL/min (>60) Glucose Level 85 mg/dL (74-106) Calcium Level 7.6 mg/dL (8.6-10.2) L Magnesium Level 1.4 mg/dL (1.7-2.5) L Total Bilirubin 0.4 mg/dL (0.0-1.2) Aspartate Amino Transf (AST/SGOT) 7 U/L (5-40) Alanine Aminotransferase (ALT/SGPT) 5 U/L (3-41) Alkaline Phosphatase 44 U/L (40-129) Total Protein 6.7 g/dL (6.6-8.7) Albumin 1.6 g/dL (3.5-5.2) L Globulin 5.1 g/dL Albumin/Globulin Ratio 0.3 (1.0-2.7) L Current Medications Medications (Trade) Dose Ordered Sig/Mili Route PRN Reason Start Time Stop Time Status Last Admin Dose Admin Acetaminophen (Tylenol) 650 mg Q4H PRN ORAL Mild Pain/Temp > 100.5 09/10/16 18:45 10/10/16 18:44 Albuterol/ Ipratropium (DuoNeb 0.5-3(2.5)mg/3ml) 3 ml Q4HRT HHN 09/10/16 19:00 09/15/16 18:59 09/11/16 07:09 Brimonidine Tartrate (Alphagan) 1 drop Q8HR BOTH EYES 09/10/16 22:00 10/10/16 21:59 09/11/16 04:52 Carbidopa/Levodopa (Sinemet CR 50/ 200) 1 ea Q12HR ORAL 09/10/16 21:00 10/10/16 20:59 09/11/16 08:39 Ceftriaxone Sodium/Dextrose (Rocephin/D5W) 55 ml @ 110 mls/hr Q24H IVPB 09/11/16 14:00 09/18/16 13:59 Dextrose (Dextrose 50%) STAT PRN IV Hypoglycemia 09/11/16 15:15 10/11/16 15:14 Docusate Sodium (Colace) 100 mg TWICE A DAY ORAL 09/10/16 18:30 10/10/16 18:29 09/11/16 08:39 Heparin Sodium (Porcine) (Heparin 5000 units/ml) 5,000 units EVERY 12 HOURS SUBQ 09/10/16 21:00 10/10/16 20:59 09/11/16 08:43 Insulin Aspart (NovoLOG) BEFORE MEALS AND HS SUBQ 09/10/16 21:00 10/10/16 20:59 Losartan Potassium (Cozaar) 100 mg DAILY ORAL 09/11/16 09:00 10/11/16 08:59 09/11/16 08:40 Promethazine HCl/ Dextromethorphan (Phenergan DM) 6.25 mg Q6H PRN ORAL For Cough 09/10/16 20:45 10/10/16 20:44 Ranitidine HCl (Zantac) 150 mg BEDTIME ORAL 09/10/16 21:00 10/10/16 20:59 09/10/16 20:51 Tamsulosin HCl (Flomax) 0.4 mg BEDTIME ORAL 09/10/16 21:00 10/10/16 20:59 09/10/16 20:50 Timolol Maleate (Timoptic 0.5% Op Soln) 1 drop Q12HR BOTH EYES 09/10/16 21:00 10/10/16 20:59 09/11/16 08:38 RANDALL MCKEON September 11, 2016 10:09
--- NOTE | 2016-09-11 10:40 | Diagnostic Imaging Report ---
Indication: SOB Technique: One view of the chest Comparison: 09/08/2016 Findings: Right-sided pleural effusion, associated parenchymal atelectasis persists, is unchanged. A 2.7 a 3 cm masslike opacity projecting in the right mid lung is stable. There is increased pleural fluid on the left. Small old bone infarct is seen in the right humeral shaft. There is a compression fracture deformity of the L2 vertebral body Impression: Unchanged right-sided pleural effusion. Right midlung masslike opacity probably just reflects configuration of pleural fluid, especially as it was much smaller on 09/07/2016 chest radiograph. Nonetheless, followup to resolution is recommended Increasing pleural fluid on the left. L2 compression fracture deformity, age indeterminate Other findings as noted
[2016-09-11 11:27] VITALS: BP 143/82
[2016-09-11] MEDS ORDERED: cefTRIAXone 1 GM in D5W 55 ML IVPB SCH (14:00)
--- NOTE | 2016-09-11 14:52 | General Progress Note ---
Assessment/Plan Problem List: (1) Sepsis ICD Codes: A41.9 - Sepsis, unspecified organism SNOMED: 68987428 (2) Toxic metabolic encephalopathy ICD Codes: G92 - Toxic encephalopathy SNOMED: 059522756 (3) Pneumonia ICD Codes: J18.9 - Pneumonia, unspecified organism SNOMED: 838920221 Status: stable, progressing Assessment/Plan iv abc resp rx keep dry monitor cxr resume ivf monitor labs gi eval for gt Subjective ROS Limited/Unobtainable: Yes Constitutional: Reports: malaise, weakness HEENT: Reports: no symptoms Cardiovascular: Reports: no symptoms Respiratory: Reports: cough Gastrointestinal/Abdominal: Reports: difficulty swallowing Genitourinary: Reports: no symptoms Neurologic/Psychiatric: Reports: pre-existing deficit Endocrine: Reports: no symptoms Hematologic/Lymphatic: Reports: anemia Allergies: Coded Allergies: No Known Allergies (Unverified , 09/06/16) All Systems: reviewed and negative except above Subjective failed video swallow on iv abx minimal po intake. d/w risk and benefits of gt. she wants to proceed Objective Last 24 Hour Vital Signs Date Time Temp Pulse Resp B/P Pulse Ox O2 Delivery O2 Flow Rate FiO2 09/11/16 12:00 80 09/11/16 11:27 97.1 79 20 143/82 96 Nasal Cannula 2.0 09/11/16 11:01 Nasal Cannula 2.0 28 09/11/16 11:01 Nasal Cannula 2.0 28 09/11/16 08:40 156/84 09/11/16 08:07 97.3 81 20 156/84 98 Nasal Cannula 2.0 09/11/16 08:00 78 09/11/16 07:18 82 16 99 Nasal Cannula 2.0 09/11/16 07:09 98 Nasal Cannula 2.0 09/11/16 07:09 82 14 97 Nasal Cannula 2.0 28 09/11/16 07:09 Nasal Cannula 2.0 09/11/16 04:00 77 09/11/16 03:58 98.2 82 19 155/88 96 Nasal Cannula 2.0 09/11/16 03:27 Nasal Cannula 2.0 28 09/11/16 03:27 Nasal Cannula 2.0 28 09/11/16 00:05 Nasal Cannula 2.0 28 09/11/16 00:05 Nasal Cannula 2.0 28 09/11/16 00:00 75 09/10/16 23:55 97.5 81 20 131/64 98 Nasal Cannula 2.0 09/10/16 20:00 79 09/10/16 19:58 97.7 84 19 165/85 97 Nasal Cannula 2.0 09/10/16 19:43 Nasal Cannula 2.0 28 09/10/16 19:42 Nasal Cannula 2.0 09/10/16 19:42 98 Nasal Cannula 2.0 09/10/16 19:42 Nasal Cannula 2.0 28 09/10/16 16:00 82 09/10/16 16:00 97.9 84 18 129/74 99 Nasal Cannula 2.0 09/10/16 15:20 Nasal Cannula 2.0 28 09/10/16 15:20 Nasal Cannula 2.0 28 Intake and Output 09/10/16 09/11/16 19:00 07:00 Intake Total 140 ml Output Total 2000 ml 400 ml Balance -1860 ml -400 ml Intake Oral 30 ml IV Total 110 ml Output Urine Total 2000 ml 400 ml Laboratory Tests 09/11/16 05:20: Sodium Level 138, Potassium Level 3.7, Chloride Level 100, Carbon Dioxide Level 26, Anion Gap 12, Blood Urea Nitrogen 10, Creatinine 0.7, Estimat Glomerular Filtration Rate > 60, Glucose Level 85, Calcium Level 7.6L, Magnesium Level 1.4L , Total Bilirubin 0.4, Aspartate Amino Transf (AST/SGOT) 7, Alanine Aminotransferase (ALT/SGPT) 5, Alkaline Phosphatase 44, Total Protein 6.7, Albumin 1.6L, Globulin 5.1, Albumin/Globulin Ratio 0.3L Height (Feet): 5 Height (Inches): 6.00 Weight (Pounds): 139 Objective General Appearance: WD/WN, alert, confused Neck: supple Cardiovascular: regular rhythm Respiratory/Chest: no respiratory distress, no accessory muscle use, rhonchi - bilaterally Abdomen: normal bowel sounds, non tender, soft, no organomegaly Edema: no edema noted Arm (L), no edema noted Arm (R), no edema noted Leg (L), no edema noted Leg (R), no edema noted Pedal (L), no edema noted Pedal (R), no edema noted Generalized CHELSY DA SILVA September 11, 2016 14:52
[2016-09-11 15:24] VITALS: BP 145/89
[2016-09-11 20:00] VITALS: BP 162/83
--- NOTE | 2016-09-11 20:05 | General Progress Note ---
Assessment/Plan Assessment/Plan GI Consult Full note to follow Discussed with son over the phone re PEG Son wants to think it through overnight Will follow Thank you Katie Santiago MD Subjective Allergies: Coded Allergies: No Known Allergies (Unverified , 09/06/16) Objective Last 24 Hour Vital Signs Date Time Temp Pulse Resp B/P Pulse Ox O2 Delivery O2 Flow Rate FiO2 09/11/16 16:00 73 09/11/16 15:24 96.6 76 20 145/89 100 Nasal Cannula 3.0 09/11/16 12:00 80 09/11/16 11:27 97.1 79 20 143/82 96 Nasal Cannula 2.0 09/11/16 11:01 Nasal Cannula 2.0 28 09/11/16 11:01 Nasal Cannula 2.0 28 09/11/16 08:40 156/84 09/11/16 08:07 97.3 81 20 156/84 98 Nasal Cannula 2.0 09/11/16 08:00 78 09/11/16 07:18 82 16 99 Nasal Cannula 2.0 09/11/16 07:09 98 Nasal Cannula 2.0 09/11/16 07:09 82 14 97 Nasal Cannula 2.0 28 09/11/16 07:09 Nasal Cannula 2.0 09/11/16 04:00 77 09/11/16 03:58 98.2 82 19 155/88 96 Nasal Cannula 2.0 09/11/16 03:27 Nasal Cannula 2.0 28 09/11/16 03:27 Nasal Cannula 2.0 28 09/11/16 00:05 Nasal Cannula 2.0 28 09/11/16 00:05 Nasal Cannula 2.0 28 09/11/16 00:00 75 09/10/16 23:55 97.5 81 20 131/64 98 Nasal Cannula 2.0 Intake and Output 09/10/16 09/11/16 19:00 07:00 Intake Total 140 ml Output Total 2000 ml 400 ml Balance -1860 ml -400 ml Intake Oral 30 ml IV Total 110 ml Output Urine Total 2000 ml 400 ml Laboratory Tests 09/11/16 05:20: Sodium Level 138, Potassium Level 3.7, Chloride Level 100, Carbon Dioxide Level 26, Anion Gap 12, Blood Urea Nitrogen 10, Creatinine 0.7, Estimat Glomerular Filtration Rate > 60, Glucose Level 85, Calcium Level 7.6L, Magnesium Level 1.4L , Total Bilirubin 0.4, Aspartate Amino Transf (AST/SGOT) 7, Alanine Aminotransferase (ALT/SGPT) 5, Alkaline Phosphatase 44, Total Protein 6.7, Albumin 1.6L, Globulin 5.1, Albumin/Globulin Ratio 0.3L Height (Feet): 5 Height (Inches): 6.00 Weight (Pounds): 139 KATIE SANTIAGO September 11, 2016 20:05
[2016-09-11] MEDS: Tamsulosin 0.4mg cap ORAL SCH (21:02)
[2016-09-12] VITALS: BP 153/79
--- NOTE | 2016-09-12 02:00 | Progress Note ---
DATE: 09/11/2016 CARDIOLOGY PROGRESS NOTE: SUBJECTIVE: The patient failed video swallow study. Family members are agreeable to G-tube. OBJECTIVE: VITAL SIGNS: Blood pressure is 143/82, pulse 79, respiratory rate 20, and afebrile. LUNGS: Bilateral breath sounds. Few rhonchi. HEART: Regular rhythm and rate. Normal S1 and S2. ABDOMEN: Soft. No edema. LABORATORY DATA: Sodium is 138, potassium 3.7, bicarbonate 26, BUN 10, and creatinine 0.7. Magnesium is 1.4. Albumin is 1.6. IMPRESSION: 1. Dysphagia. 2. Aspiration pneumonia. 3. Hypomagnesemia. 4. Hypertensive heart disease. 5. Acute on chronic diastolic congestive heart failure. PLAN: 1. NPO. 2. Maintenance hydration. 3. IV magnesium. 4. Gastrostomy tube placement. 5. Nutritional support. 6. Medication adjustment to follow. Felix Carranza M.D. DR: LAMONT/george JOB#: [id number] CC:
--- NOTE | 2016-09-12 02:15 | Progress Note ---
DATE: 09/07/2016 CARDIOLOGY PROGRESS NOTE SUBJECTIVE: The patient remains with respiratory distress on BiPAP support requiring aggressive respiratory hygiene. OBJECTIVE: VITAL SIGNS: Blood pressure 117/65, pulse 78, respirations 23, and afebrile. LUNGS: Bilateral rhonchi. HEART: Regular rhythm and rate. Normal S1 and S2. ABDOMEN: Soft. EXTREMITIES: Less weakness. No edema. LABORATORY DATA: White cell count 12.7 and hemoglobin 9.1. Lactic acid is now 1. BUN 16, creatinine 0.5, and potassium 3.1. Albumin is 1.3. IMPRESSION: 1. Healthcare-acquired pneumonia. 2. Dysphagia. 3. Hypokalemia. 4. Severe protein-calorie malnutrition. 5. Acute myocardial ischemia, resolved. 6. Lactic acidosis, resolved. 7. Sepsis, improving. 8. Acute respiratory insufficiency, improving. PLAN: 1. Antimicrobials. 2. Intravenous hydration. 3. Potassium replacement as per swallow evaluation. 4. Taper off BiPAP. 5. DVT prophylaxis. 6. Adjust intravenous fluids, based on clinical parameters. Felix Carranza M.D. DR: MOO JOB#: [id number] CC:
--- NOTE | 2016-09-12 02:30 | Consultation ---
DATE OF CONSULTATION: 09/11/2016 CARDIOLOGY CONSULTATION: CONSULTING PHYSICIAN: Felix Carranza M.D. REQUESTING PHYSICIAN: Greyson Upton M.D. REASON FOR CONSULTATION: Chest pain. HISTORY OF PRESENT ILLNESS: This 66-year-old male was transferred from a [facility] facility after complaining of two hours of chest pain. The patient is an unreliable historian. Some information is obtained from the family members. The patient has had a prior stroke and has left-sided weakness. On arrival to the emergency room, blood pressure was 168/71, heart rate 140, and respiratory rate 22. He was reportedly afebrile. The patient's initial electrocardiogram was notable for sinus tachycardia with nonspecific ST-changes and no acute pathology, ventricular rate of 123. Troponin level number 1 was negative. PAST MEDICAL HISTORY: Hypertension, type 2 diabetes mellitus, cerebrovascular accident with left hemiparesis, osteoporosis, osteoarthritis, history of DVT, chronic kidney disease, and history of pulmonary embolus. ALLERGIES: None known. SOCIAL HISTORY: Negative for smoking, alcohol, or substance abuse. MEDICATIONS: Medications prior to admission reviewed and reconciled. REVIEW OF SYSTEMS: Not obtainable from the patient due to medical condition. Pertinent data from family members and available records as outlined above. PHYSICAL EXAMINATION: VITAL SIGNS: As noted above. GENERAL: The patient is in moderate respiratory distress. He is on BiPAP support. Male pattern balding. HEENT: Dry mucous membranes. NECK: Supple. LUNGS: Accessory muscle use is noted. Coarse rhonchi. No wheezing. Symmetric expansion. HEART: Regular rhythm. Rapid rate. Normal S1 and S2 with no murmur. ABDOMEN: Soft and nontender with no guarding or rebound. EXTREMITIES: Revealed decreased capillary refill. No edema. LABORATORY DATA: Lactic acid is 3.5. Troponin is negative. Sodium is 134, potassium 3.7, bicarbonate 24, BUN 16, creatinine 0.7, chloride 94, and glucose 115. Albumin is 1.6. White count is 18.2 and hemoglobin 10.9. DIAGNOSTIC DATA: Chest x-ray reveals bilateral parenchymal consolidation. IMPRESSION: 1. Critical condition, guarded prognosis. 2. Healthcare-acquired pneumonia, probable aspiration. 3. Hyponatremia. 4. Hypovolemia. 5. Dehydration. 6. Hypochloremia. 7. Sepsis. 8. Secondary sinus tachycardia. 9. Acute myocardial ischemia. 10. History of deep venous thrombosis and pulmonary embolus. 11. Acute respiratory insufficiency due to acute pulmonary infection. 12. Cerebrovascular accident with left weakness. 13. Lactic acidosis. PLAN: 1. Admit to direct observation unit. 2. Cardiac monitoring. 3. BiPAP support. 4. Panculture. 5. Broad-spectrum antibiotics. 6. Bronchodilators. 7. Deep venous thrombosis and stress ulcer prophylaxis. 8. Venous Duplex to assess for source of pulmonary emboli. 9. Cautious hydration. 10. Anti-platelet therapy. Felix Carranza M.D. DR: Gretta JOB#: [id number] CC:
--- NOTE | 2016-09-12 02:30 | Progress Note ---
DATE: 09/08/2016 CARDIOLOGY PROGRESS NOTE SUBJECTIVE: The patient is on nasal cannula. He has less respiratory distress and congestion. Afebrile. Monitor sinus. OBJECTIVE: VITAL SIGNS: Blood pressure 139/72, pulse 81, and respirations 18. LUNGS: Few rhonchi. HEART: Regular rhythm and rate. Normal S1 and S2. ABDOMEN: Soft. EXTREMITIES: Trace edema. IMAGING STUDIES: Chest x-ray reveals interstitial edema and right pleural effusion. IMPRESSION: 1. Dysphagia. 2. Aspiration pneumonia. 3. Acute diastolic congestive heart failure. 4. Pleural effusion on the right. 5. Cerebrovascular disease with left hemiparesis. 6. Sepsis, resolved. 7. Lactic acidosis, resolved. 8. Myocardial ischemia. 9. Severe protein-calorie malnutrition. PLAN: 1. Adjust intravenous fluids. 2. Respiratory hygiene. 3. Antimicrobials. 4. Await swallow evaluation. 5. Antimicrobials. 6. DVT prophylaxis. 7. Follow up electrolytes. Felix Carranza M.D. DR: MOO JOB#: [id number] CC:
[2016-09-12] MEDS: DuoNeb 0.5-3(2.5)mg/3ml neb HHN SCH ×6 (03:00→23:53)
[2016-09-12 04:00] VITALS: BP 157/88
[2016-09-12] MEDS: NovoLOG Insulin Flexpen SUBQ SCH ×3 (05:57→18:13)
[2016-09-12] MEDS: Brimonidine 0.2% Opth Sol BOTH EYES SCH ×3 (05:57→22:00)
--- NOTE | 2016-09-12 07:30 | Progress Note ---
DATE: 09/09/2016 CARDIOLOGY PROGRESS NOTE: Late Entry SUBJECTIVE: The patient was seen and evaluated. He remains congested. Chest x-ray from yesterday was reviewed again and discussed with Dr. Upton. OBJECTIVE: VITAL SIGNS: Blood pressure 157/83, heart rate 66, respiratory rate 22, afebrile. LUNGS: Bilateral rales and rhonchi. Diminished at the right base. HEART: Regular rhythm and rate. Normal S1 and S2 with a fourth heart sound. ABDOMEN: Soft. EXTREMITIES: Trace edema. NEUROLOGICAL: Left-sided weakness. LABORATORY DATA: Reviewed. IMPRESSION: 1. Acute diastolic congestive heart failure. 2. Right pleural effusion. 3. Healthcare-acquired aspiration pneumonia. 4. Dysphagia. 5. Cerebrovascular accident with left hemiparesis. 6. Rehydrated. 7. Resolved lactic acidosis. 8. Recovered sepsis. 9. Resolved leukocytosis. 10. Severe protein-calorie malnutrition. 11. Resolved acute myocardial ischemia. PLAN: Discontinue intravenous fluids. Cautious diuresis. Antimicrobials. DVT prophylaxis. Await swallow evaluation. Titrate anti-failure regimen and antihypertensive. May need feeding tube. Felix Carranza M.D. DR: Collins JOB#: [id number] CC:
[2016-09-12 08:00] VITALS: BP 157/88
[2016-09-12 08:05] LABS: BASOPHILS % (AUTO) 0.6 % (0.0-2.0); EOSINOPHILS % (AUTO) 0.7 % (0.0-3.0); LYMPHOCYTES % (AUTO) 22.9 % (20.0-45.0); MEAN CORPUSCULAR HEMOGLOBIN 32.1 PG (27.0-31.0); MEAN CORPUSCULAR VOLUME 95 FL (80-99); MEAN PLATELET VOLUME 5.2 FL (6.5-10.1); MONOCYTES % (AUTO) 7.4 % (1.0-10.0); NEUTROPHILS % (AUTO) 68.4 % (45.0-75.0); PLATELET COUNT 214 K/UL (150-450); RED BLOOD COUNT 3.02 M/UL (4.70-6.10); RED CELL DISTRIBUTION WIDTH 11.5 % (11.6-14.8); WHITE BLOOD COUNT 6.2 K/UL (4.8-10.8)
[2016-09-12] MEDS: Timolol 0.5% Op Soln 2.5ml BOTH EYES SCH ×3 (08:08→20:41)
[2016-09-12] MEDS: Losartan 50mg tab ORAL SCH (08:10)
[2016-09-12 08:14] LABS: ANION GAP 12 (5-15); CALCIUM 7.4 mg/dL (8.6-10.2); CARBON DIOXIDE 25 mEQ/L (20-30); CHLORIDE 98 mEQ/L (98-107); CREATININE 0.6 mg/dL (0.7-1.2); GLOMERULAR FILTRATION RATE > 60 mL/min (>60); HEMOLYSIS 39; POTASSIUM 3.9 mEQ/L (3.4-4.9); SODIUM 135 mEQ/L (135-145)
[2016-09-12] MEDS: Heparin 5000 units/ml inj SUBQ SCH ×2 (08:18→20:42)
[2016-09-12] MEDS: Docusate 100mg/10ml Liq ORAL SCH ×2 (08:19→18:09)
[2016-09-12 08:32] LABS: INR 1.1 (0.9-1.1)
--- NOTE | 2016-09-12 08:42 | General Progress Note ---
Assessment/Plan Problem List: (1) Sepsis ICD Codes: A41.9 - Sepsis, unspecified organism SNOMED: 93582748 (2) Toxic metabolic encephalopathy ICD Codes: G92 - Toxic encephalopathy SNOMED: 161647811 (3) Pneumonia ICD Codes: J18.9 - Pneumonia, unspecified organism SNOMED: 102031144 Status: stable Assessment/Plan iv abc resp rx keep dry monitor cxr resume ivf monitor labs GT today Subjective ROS Limited/Unobtainable: Yes Constitutional: Reports: malaise, weakness HEENT: Reports: no symptoms Cardiovascular: Reports: no symptoms Respiratory: Reports: cough, shortness of breath, sputum Gastrointestinal/Abdominal: Reports: difficulty swallowing Genitourinary: Reports: no symptoms Neurologic/Psychiatric: Reports: pre-existing deficit Endocrine: Reports: no symptoms Hematologic/Lymphatic: Reports: anemia Allergies: Coded Allergies: No Known Allergies (Unverified , 09/06/16) All Systems: reviewed and negative except above Subjective npo except meds. on ivf. awaiting gt. d/w and dtr yesterday. options reviewed. would like to proceed with gt. Objective Last 24 Hour Vital Signs Date Time Temp Pulse Resp B/P Pulse Ox O2 Delivery O2 Flow Rate FiO2 09/12/16 08:10 157/88 09/12/16 08:00 97.3 77 18 157/88 100 09/12/16 07:43 74 18 100 Nasal Cannula 2.0 09/12/16 07:34 74 18 100 Nasal Cannula 2.0 09/12/16 07:33 Nasal Cannula 2.0 09/12/16 07:32 100 Nasal Cannula 2.0 28 09/12/16 04:00 97.5 75 22 157/88 98 Nasal Cannula 2.0 09/12/16 04:00 70 09/12/16 03:45 75 20 99 Nasal Cannula 2.0 28 09/12/16 03:30 70 20 95 Nasal Cannula 2.0 28 09/12/16 00:00 71 09/12/16 00:00 97.8 75 21 153/79 99 Nasal Cannula 2.0 09/11/16 23:35 72 20 97 Nasal Cannula 2.0 28 09/11/16 23:35 74 20 98 Nasal Cannula 2.0 28 09/11/16 20:00 75 09/11/16 20:00 97.5 73 20 162/83 99 Nasal Cannula 2.0 09/11/16 19:30 97 Nasal Cannula 2.0 28 09/11/16 19:30 80 20 99 Nasal Cannula 2.0 28 09/11/16 19:30 75 20 98 Nasal Cannula 2.0 28 09/11/16 19:30 Nasal Cannula 2.0 28 09/11/16 16:00 73 09/11/16 15:24 96.6 76 20 145/89 100 Nasal Cannula 3.0 09/11/16 13:03 2.0 09/11/16 12:00 80 09/11/16 11:27 97.1 79 20 143/82 96 Nasal Cannula 2.0 09/11/16 11:01 Nasal Cannula 2.0 28 09/11/16 11:01 Nasal Cannula 2.0 28 Intake and Output 09/11/16 09/12/16 19:00 07:00 Intake Total 260 ml 600 ml Output Total 650 ml Balance -390 ml 600 ml IV Total 260 ml 600 ml Output Urine Total 650 ml # Voids 2 Laboratory Tests 09/12/16 07:20: White Blood Count 6.2, Red Blood Count 3.02L, Hemoglobin 9.7L, Hematocrit 28.6L , Mean Corpuscular Volume 95, Mean Corpuscular Hemoglobin 32.1H, Mean Corpuscular Hemoglobin Concent 34.0, Red Cell Distribution Width 11.5L, Platelet Count 214, Mean Platelet Volume 5.2L, Neutrophils (%) (Auto) 68.4, Lymphocytes (%) (Auto) 22.9, Monocytes (%) (Auto) 7.4, Eosinophils (%) (Auto) 0.7, Basophils (%) (Auto) 0.6, Prothrombin Time 11.0, Prothromb Time International Ratio 1.1, Sodium Level 135, Potassium Level 3.9, Chloride Level 98, Carbon Dioxide Level 25, Anion Gap 12, Blood Urea Nitrogen 9, Creatinine 0.6L, Estimat Glomerular Filtration Rate > 60, Glucose Level 133H, Calcium Level 7.4L, Magnesium Level [Pending] Height (Feet): 5 Height (Inches): 6.00 Weight (Pounds): 139 Objective General Appearance: WD/WN, alert, confused Neck: supple Cardiovascular: regular rhythm Respiratory/Chest: no respiratory distress, no accessory muscle use, rhonchi - bilaterally Abdomen: normal bowel sounds, non tender, soft, no organomegaly Edema: no edema noted Arm (L), no edema noted Arm (R), no edema noted Leg (L), no edema noted Leg (R), no edema noted Pedal (L), no edema noted Pedal (R), no edema noted Generalized CHELSY DA SILVA Sep 12, 2016 08:42
--- NOTE | 2016-09-12 09:02 | Pulmonology Progress Note ---
Assessment/Plan Assessment/Plan IMPRESSION: 1. Respiratory insufficiency. 2. Evidence of congestion. 3. Noted hypoxemia. 4. Sinus tachycardia. 5. History of cerebrovascular accident with focal weakness. 6. History of diabetes. 7. Leukocytosis. 8. Possible sepsis. 9. abnormal chest XR with effusion PLAN care noted respiratory care without change antibiotics reviewed maintain negative in and out duplex negative follow up chest xr noted follow up exam for any change ID Noted will monitor BNP- significantly elevated Lasix per cards care discussed in detail impression, plan, and exam edited and reviewed in detail care discussed with RN Subjective ROS Limited/Unobtainable: Yes Allergies: Coded Allergies: No Known Allergies (Unverified , 09/06/16) Subjective reduced congestion overnight events noted no acute changes Objective Last 24 Hour Vital Signs Date Time Temp Pulse Resp B/P Pulse Ox O2 Delivery O2 Flow Rate FiO2 09/12/16 08:10 157/88 09/12/16 08:00 97.3 77 18 157/88 100 09/12/16 08:00 73 09/12/16 07:43 74 18 100 Nasal Cannula 2.0 09/12/16 07:34 74 18 100 Nasal Cannula 2.0 09/12/16 07:33 Nasal Cannula 2.0 09/12/16 07:32 100 Nasal Cannula 2.0 28 09/12/16 04:00 97.5 75 22 157/88 98 Nasal Cannula 2.0 09/12/16 04:00 70 09/12/16 03:45 75 20 99 Nasal Cannula 2.0 28 09/12/16 03:30 70 20 95 Nasal Cannula 2.0 28 09/12/16 00:00 71 09/12/16 00:00 97.8 75 21 153/79 99 Nasal Cannula 2.0 09/11/16 23:35 72 20 97 Nasal Cannula 2.0 28 09/11/16 23:35 74 20 98 Nasal Cannula 2.0 28 09/11/16 20:00 75 09/11/16 20:00 97.5 73 20 162/83 99 Nasal Cannula 2.0 09/11/16 19:30 97 Nasal Cannula 2.0 28 09/11/16 19:30 80 20 99 Nasal Cannula 2.0 28 09/11/16 19:30 75 20 98 Nasal Cannula 2.0 28 09/11/16 19:30 Nasal Cannula 2.0 28 09/11/16 16:00 73 09/11/16 15:24 96.6 76 20 145/89 100 Nasal Cannula 3.0 09/11/16 13:03 2.0 09/11/16 12:00 80 09/11/16 11:27 97.1 79 20 143/82 96 Nasal Cannula 2.0 09/11/16 11:01 Nasal Cannula 2.0 28 09/11/16 11:01 Nasal Cannula 2.0 28 Intake and Output 09/11/16 09/12/16 19:00 07:00 Intake Total 260 ml 600 ml Output Total 650 ml Balance -390 ml 600 ml IV Total 260 ml 600 ml Output Urine Total 650 ml # Voids 2 Objective PHYSICAL EXAMINATION: GENERAL: A well-developed male, appears older than his stated age. NAD HEENT: Negative. The patient's extraocular movements are grossly intact. The oropharynx is clear. NECK: Supple. No adenopathy. LUNGS: With minimal rhonchi. Moderate air entry. no wheeze symmetric CARDIOVASCULAR: S1 and S2. Regular rate and rhythm without murmurs, rubs, or gallops. ABDOMEN: Soft, nontender, and nondistended. no HSM; NABS EXTREMITIES: No cyanosis. No clubbing. No edema. NEUROLOGIC: With focal weakness. Alert. Laboratory Tests 09/12/16 07:20: White Blood Count 6.2, Red Blood Count 3.02L, Hemoglobin 9.7L, Hematocrit 28.6L , Mean Corpuscular Volume 95, Mean Corpuscular Hemoglobin 32.1H, Mean Corpuscular Hemoglobin Concent 34.0, Red Cell Distribution Width 11.5L, Platelet Count 214, Mean Platelet Volume 5.2L, Neutrophils (%) (Auto) 68.4, Lymphocytes (%) (Auto) 22.9, Monocytes (%) (Auto) 7.4, Eosinophils (%) (Auto) 0.7, Basophils (%) (Auto) 0.6, Prothrombin Time 11.0, Prothromb Time International Ratio 1.1, Sodium Level 135, Potassium Level 3.9, Chloride Level 98, Carbon Dioxide Level 25, Anion Gap 12, Blood Urea Nitrogen 9, Creatinine 0.6L, Estimat Glomerular Filtration Rate > 60, Glucose Level 133H, Calcium Level 7.4L, Magnesium Level 1.7 Current Medications Medications (Trade) Dose Ordered Sig/Mili Route PRN Reason Start Time Stop Time Status Last Admin Dose Admin Acetaminophen (Tylenol) 650 mg Q4H PRN ORAL Mild Pain/Temp > 100.5 09/10/16 18:45 10/10/16 18:44 Albuterol/ Ipratropium (DuoNeb 0.5-3(2.5)mg/3ml) 3 ml Q4HRT HHN 09/10/16 19:00 09/15/16 18:59 09/12/16 07:34 Brimonidine Tartrate (Alphagan) 1 drop Q8HR BOTH EYES 09/10/16 22:00 10/10/16 21:59 09/12/16 05:57 Carbidopa/Levodopa (Sinemet CR 50/ 200) 1 ea Q12HR ORAL 09/10/16 21:00 10/10/16 20:59 09/12/16 08:10 Ceftriaxone Sodium/Dextrose (Rocephin/D5W) 55 ml @ 110 mls/hr Q24H IVPB 09/11/16 14:00 09/18/16 13:59 09/11/16 14:19 Dextrose (Dextrose 50%) STAT PRN IV Hypoglycemia 09/11/16 15:15 10/11/16 15:14 Dextrose/ Electrolytes 1,000 ml @ 50 mls/hr Q20H IV 09/11/16 16:00 10/11/16 15:59 09/11/16 16:49 Docusate Sodium (Colace) 100 mg BID ORAL 09/12/16 09:00 10/12/16 08:59 Heparin Sodium (Porcine) (Heparin 5000 units/ml) 5,000 units EVERY 12 HOURS SUBQ 09/10/16 21:00 10/10/16 20:59 09/11/16 21:01 Insulin Aspart (NovoLOG) BEFORE MEALS AND HS SUBQ 09/10/16 21:00 10/10/16 20:59 Losartan Potassium 100 mg 100 mg DAILY ORAL 09/11/16 09:00 10/11/16 08:59 09/12/16 08:10 Magnesium Sulfate (Magnesium Sulfate 1gm/100ml) 100 ml @ 100 mls/hr Q1H IVPB 09/12/16 08:00 09/12/16 09:59 09/12/16 08:59 Promethazine HCl/ Dextromethorphan (Phenergan DM) 6.25 mg Q6H PRN ORAL For Cough 09/10/16 20:45 10/10/16 20:44 Ranitidine HCl (Zantac) 150 mg BEDTIME ORAL 09/10/16 21:00 10/10/16 20:59 09/11/16 21:03 Tamsulosin HCl (Flomax) 0.4 mg BEDTIME ORAL 09/10/16 21:00 10/10/16 20:59 09/11/16 21:02 Timolol Maleate (Timoptic 0.5% Op Soln) 1 drop Q12HR BOTH EYES 09/10/16 21:00 10/10/16 20:59 09/12/16 08:08 STEPHANIE BRAUN Sep 12, 2016 09:02
--- NOTE | 2016-09-12 10:39 | Infectious Diseases Prog Note ---
"Assessment/Plan Assessment/Plan antibiotics : ceftriaxone A 1. proteus | klebsiella UTI s/p rx 2. leucocytosis resolved 3. rectal VRE colonization 4. DM 5. HTN 6. CVA P 1. d/c ceftriaxone 2. observe off antibiotics Subjective ROS Limited/Unobtainable: Yes Allergies: Coded Allergies: No Known Allergies (Unverified , 09/06/16) Objective Vital Signs Last 24 Hour Vital Signs Date Time Temp Pulse Resp B/P Pulse Ox O2 Delivery O2 Flow Rate FiO2 09/12/16 08:10 157/88 09/12/16 08:00 97.3 77 18 157/88 100 09/12/16 08:00 73 09/12/16 07:43 74 18 100 Nasal Cannula 2.0 09/12/16 07:34 74 18 100 Nasal Cannula 2.0 09/12/16 07:33 Nasal Cannula 2.0 09/12/16 07:32 100 Nasal Cannula 2.0 28 09/12/16 04:00 97.5 75 22 157/88 98 Nasal Cannula 2.0 09/12/16 04:00 70 09/12/16 03:45 75 20 99 Nasal Cannula 2.0 28 09/12/16 03:30 70 20 95 Nasal Cannula 2.0 28 09/12/16 00:00 71 09/12/16 00:00 97.8 75 21 153/79 99 Nasal Cannula 2.0 09/11/16 23:35 72 20 97 Nasal Cannula 2.0 28 09/11/16 23:35 74 20 98 Nasal Cannula 2.0 28 09/11/16 20:00 75 09/11/16 20:00 97.5 73 20 162/83 99 Nasal Cannula 2.0 09/11/16 19:30 97 Nasal Cannula 2.0 28 09/11/16 19:30 80 20 99 Nasal Cannula 2.0 28 09/11/16 19:30 75 20 98 Nasal Cannula 2.0 28 09/11/16 19:30 Nasal Cannula 2.0 28 09/11/16 16:00 73 09/11/16 15:24 96.6 76 20 145/89 100 Nasal Cannula 3.0 09/11/16 13:03 2.0 09/11/16 12:00 80 09/11/16 11:27 97.1 79 20 143/82 96 Nasal Cannula 2.0 09/11/16 11:01 Nasal Cannula 2.0 28 09/11/16 11:01 Nasal Cannula 2.0 28 Height (Feet): 5 Height (Inches): 6.00 Weight (Pounds): 139 Respiratory/Chest: lungs clear Cardiovascular: normal rate, regular rhythm, no gallop/murmur Abdomen: soft, non tender Extremities: no edema Laboratory Tests Test 09/12/16 07:20 White Blood Count 6.2 K/UL (4.8-10.8) Red Blood Count 3.02 M/UL (4.70-6.10) L Hemoglobin 9.7 G/DL (14.2-18.0) L Hematocrit 28.6 % (42.0-52.0) L Mean Corpuscular Volume 95 FL (80-99) Mean Corpuscular Hemoglobin 32.1 PG (27.0-31.0) H Mean Corpuscular Hemoglobin Concent 34.0 G/DL (32.0-36.0) Red Cell Distribution Width 11.5 % (11.6-14.8) L Platelet Count 214 K/UL (150-450) Mean Platelet Volume 5.2 FL (6.5-10.1) L Neutrophils (%) (Auto) 68.4 % (45.0-75.0) Lymphocytes (%) (Auto) 22.9 % (20.0-45.0) Monocytes (%) (Auto) 7.4 % (1.0-10.0) Eosinophils (%) (Auto) 0.7 % (0.0-3.0) Basophils (%) (Auto) 0.6 % (0.0-2.0) Prothrombin Time 11.0 SEC (9.30-11.50) Prothromb Time International Ratio 1.1 (0.9-1.1) Sodium Level 135 mEQ/L (135-145) Potassium Level 3.9 mEQ/L (3.4-4.9) Chloride Level 98 mEQ/L (98-107) Carbon Dioxide Level 25 mEQ/L (20-30) Anion Gap 12 (5-15) Blood Urea Nitrogen 9 mg/dL (7-23) Creatinine 0.6 mg/dL (0.7-1.2) L Estimat Glomerular Filtration Rate > 60 mL/min (>60) Glucose Level 133 mg/dL (74-106) H Calcium Level 7.4 mg/dL (8.6-10.2) L Magnesium Level 1.7 mg/dL (1.7-2.5) VIRGINIA HYATT Sep 12, 2016 10:39"
--- NOTE | 2016-09-12 11:25 | General Progress Note ---
Assessment/Plan Assessment/Plan Assessment Poor PO/dysphagia CVA, (L) divine Resp failure DM Recommendations NGT TF PEG tomorrow abx per ID Subjective Allergies: Coded Allergies: No Known Allergies (Unverified , 09/06/16) Subjective above noted seen with and DTR at bedside all answered both agreed to PEG explained via Romansh speaking RN to Objective Last 24 Hour Vital Signs Date Time Temp Pulse Resp B/P Pulse Ox O2 Delivery O2 Flow Rate FiO2 09/12/16 11:04 Nasal Cannula 2.0 09/12/16 11:02 78 18 100 Nasal Cannula 2.0 09/12/16 08:10 157/88 09/12/16 08:00 97.3 77 18 157/88 100 09/12/16 08:00 73 09/12/16 07:43 74 18 100 Nasal Cannula 2.0 09/12/16 07:34 74 18 100 Nasal Cannula 2.0 09/12/16 07:33 Nasal Cannula 2.0 09/12/16 07:32 100 Nasal Cannula 2.0 28 09/12/16 04:00 97.5 75 22 157/88 98 Nasal Cannula 2.0 09/12/16 04:00 70 09/12/16 03:45 75 20 99 Nasal Cannula 2.0 28 09/12/16 03:30 70 20 95 Nasal Cannula 2.0 28 09/12/16 00:00 71 09/12/16 00:00 97.8 75 21 153/79 99 Nasal Cannula 2.0 09/11/16 23:35 72 20 97 Nasal Cannula 2.0 28 09/11/16 23:35 74 20 98 Nasal Cannula 2.0 28 09/11/16 20:00 75 09/11/16 20:00 97.5 73 20 162/83 99 Nasal Cannula 2.0 09/11/16 19:30 97 Nasal Cannula 2.0 28 09/11/16 19:30 80 20 99 Nasal Cannula 2.0 28 09/11/16 19:30 75 20 98 Nasal Cannula 2.0 28 09/11/16 19:30 Nasal Cannula 2.0 28 09/11/16 16:00 73 09/11/16 15:24 96.6 76 20 145/89 100 Nasal Cannula 3.0 09/11/16 13:03 2.0 09/11/16 12:00 80 09/11/16 11:27 97.1 79 20 143/82 96 Nasal Cannula 2.0 Intake and Output 09/11/16 09/12/16 19:00 07:00 Intake Total 260 ml 600 ml Output Total 650 ml Balance -390 ml 600 ml IV Total 260 ml 600 ml Output Urine Total 650 ml # Voids 2 Laboratory Tests 09/12/16 07:20: White Blood Count 6.2, Red Blood Count 3.02L, Hemoglobin 9.7L, Hematocrit 28.6L , Mean Corpuscular Volume 95, Mean Corpuscular Hemoglobin 32.1H, Mean Corpuscular Hemoglobin Concent 34.0, Red Cell Distribution Width 11.5L, Platelet Count 214, Mean Platelet Volume 5.2L, Neutrophils (%) (Auto) 68.4, Lymphocytes (%) (Auto) 22.9, Monocytes (%) (Auto) 7.4, Eosinophils (%) (Auto) 0.7, Basophils (%) (Auto) 0.6, Prothrombin Time 11.0, Prothromb Time International Ratio 1.1, Sodium Level 135, Potassium Level 3.9, Chloride Level 98, Carbon Dioxide Level 25, Anion Gap 12, Blood Urea Nitrogen 9, Creatinine 0.6L, Estimat Glomerular Filtration Rate > 60, Glucose Level 133H, Calcium Level 7.4L, Magnesium Level 1.7 Height (Feet): 5 Height (Inches): 6.00 Weight (Pounds): 139 Objective Debilitated man sleepy / arousable NCAT supple CTA RRR Soft ND trace edema OBS, Stiff JEYE KRYSTINA THURMAN Sep 12, 2016 11:25
[2016-09-12 12:00] VITALS: BP 150/79
--- NOTE | 2016-09-12 15:51 | Diagnostic Imaging Report ---
Indication: Tube placement Technique: One view of the chest Comparison: 09/11/2016 Findings: Interim placement of a nasogastric tube. The tip is within the gastric fundus as the proximal port. There may be a small amount of injected contrast also within the gastric fundus. Again demonstrated are bilateral pleural effusions, right greater than left, probably not significantly changed. The heart size is normal. Impression: Satisfactory nasogastric tube placement Other stable findings as described
[2016-09-12 16:00] VITALS: BP 149/70
--- NOTE | 2016-09-12 16:00 | Consultation ---
DATE OF CONSULTATION: 09/12/2016 GASTROENTEROLOGY CONSULTATION CONSULTING PHYSICIAN: Katie Santiago M.D. REFERRING PHYSICIAN: Greyson Upton M.D. CHIEF COMPLAINT: I was asked to see this patient by Dr. Greyson Upton for evaluation of gastrostomy tube placement. HISTORY OF PRESENT ILLNESS: The patient is a debilitated unfortunate 66-year-old Sinhala man, who was brought into the hospital from long-term for chest pain. The patient's mental status is poor and he has had a history of stroke with left-sided hemiparesis. He is debilitated and does not eat much. He also has a very marginal swallow study. For that reason, the family have been advised to accept the gastrostomy tube and they have agreed to proceed with this. I have explained the indications, risks, alternatives, and possible complications, to the daughter directly and to the of the patient via the Sinhala speaking academic records specialist at length and all questions have been answered. Past Medical History: History of hypertension, type 2 diabetes, stroke with left-sided hemiparesis, osteoporosis, osteoarthritis, history of deep vein thrombosis, 01:28, and history of chronic kidney disease. ALLERGIES: None. SOCIAL HISTORY: The patient does not smoke or drink alcohol. FAMILY HISTORY: Noncontributory. REVIEW OF SYSTEMS: Otherwise, negative. MEDICATIONS: See chart for details. PHYSICAL EXAMINATION: GENERAL: The patient is debilitated Sinhala man seen in his room with family at bedside. HEENT: Normocephalic and atraumatic. Sclerae anicteric. Oropharynx clear. NECK: Supple. CHEST: Clear to auscultation. CARDIOVASCULAR: Regular rate. ABDOMEN: Soft. Good bowel sounds. EXTREMITIES: Revealed no edema. NEUROLOGIC: Noted for debilitation, obtundation and left-sided hemiparesis, with stiff left upper extremity. LABORATORY DATA: Noted. ASSESSMENT: This patient presents with functionally decline, poor oral intake, dysphagia, marginal swallow study and malnutrition. The patient is a good candidate for gastrostomy tube placement for long-term axis and enteral nutrition. It is likely that he will have some degree of improvement with nutrition and he may be able to swallow's more safely at a later time. I have explained the patient's family at that time, a swallow study can be repeated and another trial of oral diet can be given. The patient's and daughter understand the indications, risks, alternatives, and possible complications of the procedure and they agreed to proceed. RECOMMENDATIONS: 1. Nasogastric tube feeding for today. 2. NPO after midnight. 3. Gastrostomy tube placement tomorrow. 4. Monitor CBC. Thank you for asking me to participate in the care of this patient. Katie Santiago M.D. DR: Master JOB#: [id number] CC:
[2016-09-12 20:00] VITALS: BP 144/76
[2016-09-12] MEDS ORDERED: Promethazine/DM 6.25mg/5ml GT PRN (20:11)
[2016-09-12] MEDS ORDERED: Acetaminophen 650mg/20.3ml GT PRN (20:15)
[2016-09-12] MEDS: Tamsulosin 0.4mg cap GT SCH (20:39)
[2016-09-12] MEDS: Sinemet 25/100 tab GT SCH (20:39)
[2016-09-13] VITALS (9 sets, daily range): BP systolic 111–169; BP diastolic 71–89
--- NOTE | 2016-09-13 00:15 | Progress Note ---
DATE: 09/12/2016 CARDIOLOGY PROGRESS NOTE SUBJECTIVE: The patient remains withdrawn. He is on IV fluids and NPO. G-tube planned for today. OBJECTIVE: VITAL SIGNS: The patient is afebrile. Blood pressure 157/88, pulse 77, and respirations 18. LUNGS: Bilateral breath sounds. Few rhonchi. Left hemiparesis. HEART: Regular rhythm and rate. Normal S1 and S2. Monitor sinus rhythm. ABDOMEN: Soft. EXTREMITIES: No edema. LABORATORY DATA: White count 6.2, hemoglobin 9.7, and platelets 214,000. Magnesium is 1.7. INR is 1.1. BUN 9 and creatinine 0.6. Potassium is 3.9. IMPRESSION: 1. Aspiration pneumonia. 2. Dysphagia. 3. Secondary sinus tachycardia. 4. Acute and chronic diastolic congestive heart failure. 5. Severe protein-calorie malnutrition. 6. Hypomagnesemia. 7. Left hemiparesis. PLAN: 1. Stable for G-tube. 2. Continue NPO. 3. Followup magnesium level. 4. Protein supplement to follow. 5. DVT prophylaxis. 6. We will reassess for diuresis once nutrition re-initiated. Felix Carranza M.D. DR: MOO JOB#: [id number] CC:
[2016-09-13] MEDS: DuoNeb 0.5-3(2.5)mg/3ml neb HHN SCH ×7 (03:32→23:08)
[2016-09-13] MEDS: Brimonidine 0.2% Opth Sol BOTH EYES SCH ×4 (06:00→20:51)
[2016-09-13] MEDS: NovoLOG Insulin Flexpen SUBQ SCH ×4 (06:00→18:00)
[2016-09-13] MEDS ORDERED: ceFAZolin sod 0.5 GM in D5W 55 ML IV ONE (06:30)
--- NOTE | 2016-09-13 06:44 | General Progress Note ---
Assessment/Plan Problem List: (1) Sepsis ICD Codes: A41.9 - Sepsis, unspecified organism SNOMED: 13264110 (2) Toxic metabolic encephalopathy ICD Codes: G92 - Toxic encephalopathy SNOMED: 046661011 (3) Pneumonia ICD Codes: J18.9 - Pneumonia, unspecified organism SNOMED: 120529892 Status: stable, progressing Assessment/Plan iv abx resp rx keep dry monitor cxr resume ivf monitor labs GT today Subjective ROS Limited/Unobtainable: Yes Constitutional: Reports: malaise, weakness HEENT: Reports: no symptoms Cardiovascular: Reports: no symptoms Respiratory: Reports: cough Gastrointestinal/Abdominal: Reports: difficulty swallowing Genitourinary: Reports: no symptoms Neurologic/Psychiatric: Reports: pre-existing deficit Endocrine: Reports: no symptoms Hematologic/Lymphatic: Reports: anemia Allergies: Coded Allergies: No Known Allergies (Unverified , 09/06/16) All Systems: reviewed and negative except above Subjective npo except meds. on ivf. +NGT. consent signed by family for gt. Objective Last 24 Hour Vital Signs Date Time Temp Pulse Resp B/P Pulse Ox O2 Delivery O2 Flow Rate FiO2 09/13/16 04:00 97.2 74 19 156/77 96 Nasal Cannula 09/13/16 03:41 71 18 99 Nasal Cannula 2.0 28 09/13/16 03:32 75 16 97 Nasal Cannula 2.0 28 09/13/16 00:00 97.2 74 19 152/72 99 Nasal Cannula 09/13/16 00:00 66 09/12/16 23:58 68 18 99 Nasal Cannula 2.0 28 09/12/16 23:50 66 18 99 Nasal Cannula 2.0 28 09/12/16 20:00 97.3 72 17 144/76 100 Nasal Cannula 09/12/16 20:00 67 09/12/16 19:02 70 18 99 Nasal Cannula 2.0 28 09/12/16 18:54 69 18 99 Nasal Cannula 2.0 28 09/12/16 18:53 Nasal Cannula 2.0 28 09/12/16 18:53 99 Nasal Cannula 2.0 28 09/12/16 16:00 64 09/12/16 16:00 98.5 67 18 149/70 97 Nasal Cannula 09/12/16 15:21 66 20 100 Nasal Cannula 2.0 09/12/16 15:10 65 18 100 Nasal Cannula 2.0 09/12/16 12:00 71 09/12/16 12:00 97.5 73 18 150/79 98 Nasal Cannula 2.0 09/12/16 11:04 Nasal Cannula 2.0 09/12/16 11:02 78 18 100 Nasal Cannula 2.0 09/12/16 08:10 157/88 09/12/16 08:00 97.3 77 18 157/88 100 09/12/16 08:00 73 09/12/16 07:43 74 18 100 Nasal Cannula 2.0 09/12/16 07:34 74 18 100 Nasal Cannula 2.0 09/12/16 07:33 Nasal Cannula 2.0 09/12/16 07:32 100 Nasal Cannula 2.0 28 Intake and Output 09/12/16 09/13/16 19:00 07:00 Intake Total 918 ml 450 ml Output Total 1500 ml Balance -582 ml 450 ml Free Water 60 ml IV Total 798 ml 450 ml Tube Feeding 60 ml Output Urine Total 1500 ml Laboratory Tests 09/12/16 07:20: White Blood Count 6.2, Red Blood Count 3.02L, Hemoglobin 9.7L, Hematocrit 28.6L , Mean Corpuscular Volume 95, Mean Corpuscular Hemoglobin 32.1H, Mean Corpuscular Hemoglobin Concent 34.0, Red Cell Distribution Width 11.5L, Platelet Count 214, Mean Platelet Volume 5.2L, Neutrophils (%) (Auto) 68.4, Lymphocytes (%) (Auto) 22.9, Monocytes (%) (Auto) 7.4, Eosinophils (%) (Auto) 0.7, Basophils (%) (Auto) 0.6, Prothrombin Time 11.0, Prothromb Time International Ratio 1.1, Sodium Level 135, Potassium Level 3.9, Chloride Level 98, Carbon Dioxide Level 25, Anion Gap 12, Blood Urea Nitrogen 9, Creatinine 0.6L, Estimat Glomerular Filtration Rate > 60, Glucose Level 133H, Calcium Level 7.4L, Magnesium Level 1.7 Height (Feet): 5 Height (Inches): 6.00 Weight (Pounds): 139 Objective General Appearance: WD/WN, alert, confused Neck: supple Cardiovascular: regular rhythm Respiratory/Chest: no respiratory distress, no accessory muscle use, rhonchi - bilaterally Abdomen: normal bowel sounds, non tender, soft, no organomegaly Edema: no edema noted Arm (L), no edema noted Arm (R), no edema noted Leg (L), no edema noted Leg (R), no edema noted Pedal (L), no edema noted Pedal (R), no edema noted Generalized CHELSY DA SILVA Sep 13, 2016 06:44
[2016-09-13] MEDS ORDERED: NS 550ML IV ONE (08:00)
[2016-09-13] MEDS ORDERED: Lidocaine 0.5% Epi 50 mL Vial ONE (08:00)
[2016-09-13] MEDS ORDERED: Propofol 10mg/ml 20ml IV ONE (08:00)
--- NOTE | 2016-09-13 08:18 | Anethesia Preoperative Eval ---
Anesthesia Pre-op PMH/ROS General Date of Evaluation: Sep 13, 2016 Anesthesiologist: Manuel ASA Score: ASA 3 Mallampati Score Class I : Soft palate, uvula, fauces, pillars visible Class II: Soft palate, uvula, fauces visible Class III: Soft palate, base of uvula visible Class IV: Only hard plate visible Mallampati Classification: Class II Surgeon: Jack Diagnosis: Dysphagia Surgical Procedure: EGD and PEG Anesthesia History: none Family History: no anesthesia problems Allergies: Coded Allergies: No Known Allergies (Unverified , 09/06/16) Medications: see eMAR Past Medical History Cardiovascular: Reports: HTN, Denies: CAD, CT, arrhythmia, other, valve dz Pulmonary: Denies: COPD, DAVIS, asthma, other Gastrointestinal/Genitourinary: Denies: CRI, ESRD, GERD, other Neurologic/Psychiatric: Reports: CVA, dementia, Denies: TIA, depression/anxiety, other Endocrine: Reports: DM, Denies: hypothyroidism, other, steroids HEENT: Denies: [place] (L), [place] (R), cataract (L), cataract (R), glaucoma, other Hematology/Immune: Reports: DVT, anemia, Denies: bleeding disorder, other Musculoskeletal/Integumentary: Denies: DDD, DJD, OA, RA, edema, other PSxH Narrative: Unable to assess Anesthesia Pre-op Phys. Exam Physician Exam Last Vital Signs Date Time Temp Pulse Resp B/P Pulse Ox O2 Delivery O2 Flow Rate FiO2 09/13/16 07:01 86 18 100 Nasal Cannula 2.0 09/13/16 04:00 97.2 156/77 09/13/16 03:41 28 Constitutional: NAD Cardiovascular: RRR Respiratory: CTA Airway Exam Mallampati Score: Class II MO: limited ROM: limited Anesthesia Pre-op A/P Labs see chart Studies Pre-op Studies: EKG - sr Risk Assessment & Plan Assessment: ASA III Plan: MAC Status Change Before Surgery: No Pre-Antibiotics Drug: Ancef 1g Given Within 1 Hr of Incision: Yes Time Given: 08:05 ZULMA MEDEROS M.D. Sep 13, 2016 08:18
--- NOTE | 2016-09-13 08:23 | Pre-Procedure Note/Attestation ---
Pre-Procedure Note/Attestation Complete Prior to Procedure Planned Procedure: not applicable Procedure Narrative: PEG Indications for Procedure Pre-Operative Diagnosis: dysphagia/malnutrition Attestation I attest that I discussed the nature of the procedure; its benefits; risks and complications; and alternatives (and the risks and benefits of such alternatives ), prior to the procedure, with the patient (or the patient's legal retail account representative). I attest that, if there was a reasonable possibility of needing a blood transfusion, the patient (or the patient's legal retail account representative) was given the [facility] standardized written summary, pursuant to the Bruno Timote[place] Blood Safety Act ([place] Health and Safety Code # 1645, as amended). I attest that I re-evaluated the patient just prior to the surgery and that there has been no change in the patient's H&P, except as documented below: KRYSTINA THURMAN Sep 13, 2016 08:23
[2016-09-13] MEDS: ceFAZolin sod 0.5 GM in D5W 55 ML IV SCH ×3 (08:30→18:16)
[2016-09-13] MEDS ORDERED: DiphenhydrAMINE 50mg/ml Inj IVP PRN (08:30)
--- NOTE | 2016-09-13 08:54 | Immediate Post-Op Evaluation ---
Immediate Post-Op Evalulation Immediate Post-Op Evalulation Procedure: EGd and PEG Date of Evaluation: Sep 13, 2016 Time of Evaluation: 08:55 IV Fluids: 200 Blood Products: 0 Estimated Blood Loss: 0 Urinary Output: 0 Blood Pressure Systolic: 111 Blood Pressure Diastolic: 71 Pulse Rate: 76 Respiratory Rate: 16 O2 Sat by Pulse Oximetry: 99 Temperature (Fahrenheit): 97.4 Pain Score (1-10): 0 Nausea: No Vomiting: No Complications 0 Patient Status: awake, reacts, patent, none Hydration Status: adequate Drug: Ancef 1g Given Within 1 Hr of Incision: Yes Time Given: 08:05 ZULMA MEDEROS M.D. Sep 13, 2016 08:54
--- NOTE | 2016-09-13 08:56 | Pulmonology Progress Note ---
Assessment/Plan Assessment/Plan IMPRESSION: 1. Respiratory insufficiency. 2. Evidence of congestion. 3. Noted hypoxemia. 4. Sinus tachycardia. 5. History of cerebrovascular accident with focal weakness. 6. History of diabetes. 7. Leukocytosis. 8. Possible sepsis. 9. abnormal chest XR with effusion PLAN care noted respiratory care without change antibiotics noted maintain negative in and out duplex negative follow up chest xr noted monitor effusions and tap if needed follow up exam for any change ID Noted Lasix ? daily recommended for GT care discussed in detail impression, plan, and exam edited and reviewed in detail care discussed with RN Subjective ROS Limited/Unobtainable: Yes Allergies: Coded Allergies: No Known Allergies (Unverified , 09/06/16) Subjective minimal congestion overnight events noted for GT Objective Last 24 Hour Vital Signs Date Time Temp Pulse Resp B/P Pulse Ox O2 Delivery O2 Flow Rate FiO2 09/13/16 07:01 86 18 100 Nasal Cannula 2.0 09/13/16 06:51 88 18 100 Nasal Cannula 2.0 09/13/16 06:50 Nasal Cannula 2.0 09/13/16 06:49 100 Nasal Cannula 2.0 09/13/16 04:00 97.2 74 19 156/77 96 Nasal Cannula 09/13/16 04:00 68 09/13/16 03:41 71 18 99 Nasal Cannula 2.0 28 09/13/16 03:32 75 16 97 Nasal Cannula 2.0 28 09/13/16 00:00 97.2 74 19 152/72 99 Nasal Cannula 09/13/16 00:00 66 09/12/16 23:58 68 18 99 Nasal Cannula 2.0 28 09/12/16 23:50 66 18 99 Nasal Cannula 2.0 28 09/12/16 20:00 97.3 72 17 144/76 100 Nasal Cannula 09/12/16 20:00 67 09/12/16 19:02 70 18 99 Nasal Cannula 2.0 28 09/12/16 18:54 69 18 99 Nasal Cannula 2.0 28 09/12/16 18:53 Nasal Cannula 2.0 28 09/12/16 18:53 99 Nasal Cannula 2.0 28 09/12/16 16:00 64 09/12/16 16:00 98.5 67 18 149/70 97 Nasal Cannula 09/12/16 15:21 66 20 100 Nasal Cannula 2.0 09/12/16 15:10 65 18 100 Nasal Cannula 2.0 09/12/16 12:00 71 09/12/16 12:00 97.5 73 18 150/79 98 Nasal Cannula 2.0 09/12/16 11:04 Nasal Cannula 2.0 09/12/16 11:02 78 18 100 Nasal Cannula 2.0 Intake and Output 09/12/16 09/13/16 19:00 07:00 Intake Total 918 ml 740 ml Output Total 1500 ml 1000 ml Balance -582 ml -260 ml Free Water 60 ml 50 ml IV Total 798 ml 575 ml Tube Feeding 60 ml 115 ml Output Urine Total 1500 ml 1000 ml Objective PHYSICAL EXAMINATION: GENERAL: A well-developed male, NAD HEENT: Negative. The patient's extraocular movements are grossly intact. The oropharynx is clear. NECK: Supple. No adenopathy. LUNGS: With some rhonchi. Moderate air entry. no wheeze symmetric CARDIOVASCULAR: S1 and S2. Regular rate and rhythm without murmurs, rubs, or gallops. ABDOMEN: Soft, nontender, and nondistended. no HSM; NABS EXTREMITIES: No cyanosis. No clubbing. No edema. NEUROLOGIC: With focal weakness. Alert. Current Medications Medications (Trade) Dose Ordered Sig/Mili Route PRN Reason Start Time Stop Time Status Last Admin Dose Admin Acetaminophen (Tylenol) 650 mg Q4H PRN GT Mild Pain/Temp > 100.5 09/12/16 20:15 10/12/16 20:14 Acetaminophen (Tylenol) 650 mg Q4H PRN ORAL Mild Pain (Pain Scale 1-3) 09/13/16 08:30 09/13/16 11:30 Albuterol/ Ipratropium (DuoNeb 0.5-3(2.5)mg/3ml) 3 ml Q4HRT HHN 09/10/16 19:00 09/15/16 18:59 09/13/16 07:00 Brimonidine Tartrate (Alphagan) 1 drop Q8HR BOTH EYES 09/10/16 22:00 10/10/16 21:59 09/12/16 13:00 Carbidopa/Levodopa (Sinemet 25/100) 1 ea QID GT 09/12/16 21:00 10/12/16 20:59 09/12/16 20:39 Cefazolin Sodium 0.5 gm/Dextrose 55 ml @ 110 mls/hr Q8HR IV 09/13/16 08:30 09/20/16 08:29 Dextrose (Dextrose 50%) STAT PRN IV Hypoglycemia 09/11/16 15:15 10/11/16 15:14 Dextrose/ Electrolytes (D5NS W/KCl 20meq 1000ml) 1,000 ml @ 83 mls/hr Q12H3M IV 09/13/16 09:00 10/13/16 08:59 Diphenhydramine HCl 25 mg 25 mg Q15M PRN IVP Itching 09/13/16 08:30 09/13/16 11:30 Docusate Sodium (Colace) 100 mg BID GT 09/12/16 20:08 10/12/16 08:59 Heparin Sodium (Porcine) (Heparin 5000 units/ml) 5,000 units EVERY 12 HOURS SUBQ 09/10/16 21:00 10/10/16 20:59 09/11/16 21:01 Hydralazine HCl (Apresoline) 5 mg Q30M PRN IV SBP>160 /DBP>90 09/13/16 08:30 09/13/16 11:30 Insulin Aspart (NovoLOG) Q6HR SUBQ 09/13/16 00:00 10/13/16 00:00 Losartan Potassium (Cozaar) 100 mg DAILY GT 09/12/16 20:10 10/11/16 08:59 Ondansetron HCl (Zofran) 4 mg Q1H PRN IVP Nausea & Vomiting 09/13/16 08:30 09/13/16 11:30 Promethazine HCl/ Dextromethorphan (Phenergan DM) 6.25 mg Q6H PRN GT For Cough 09/12/16 20:11 10/10/16 20:44 Ranitidine HCl (Zantac) 150 mg BEDTIME GT 09/12/16 20:11 10/10/16 20:59 09/12/16 20:39 Sodium Chloride (Sodium Chloride 1000ml bag) 1,000 ml @ 10 mls/hr Q24H IVLG 09/13/16 08:18 09/13/16 11:30 Tamsulosin HCl 0.4 mg 0.4 mg BEDTIME GT 09/12/16 20:11 10/10/16 20:59 09/12/16 20:39 Timolol Maleate (Timoptic 0.5% Op Soln) 1 drop Q12HR BOTH EYES 09/10/16 21:00 10/10/16 20:59 09/12/16 08:08 STEPHANIE BRAUN Sep 13, 2016 08:56
[2016-09-13] MEDS: Heparin 5000 units/ml inj SUBQ SCH ×2 (09:00→20:54)
--- NOTE | 2016-09-13 09:12 | General Progress Note ---
Assessment/Plan Assessment/Plan Assessment Anemia Poor PO/dysphagia CVA, (L) divine Resp failure DM Recommendations Monitor CBC check Iron panel Elevate HOB EGD/PEG today Subjective Allergies: Coded Allergies: No Known Allergies (Unverified , 09/06/16) Subjective Patient seen in GI lab uneventful night NPO for PEG labs noted Objective Last 24 Hour Vital Signs Date Time Temp Pulse Resp B/P Pulse Ox O2 Delivery O2 Flow Rate FiO2 09/13/16 08:54 76 16 99 09/13/16 07:01 86 18 100 Nasal Cannula 2.0 09/13/16 06:51 88 18 100 Nasal Cannula 2.0 09/13/16 06:50 Nasal Cannula 2.0 09/13/16 06:49 100 Nasal Cannula 2.0 09/13/16 04:00 97.2 74 19 156/77 96 Nasal Cannula 09/13/16 04:00 68 09/13/16 03:41 71 18 99 Nasal Cannula 2.0 28 09/13/16 03:32 75 16 97 Nasal Cannula 2.0 28 09/13/16 00:00 97.2 74 19 152/72 99 Nasal Cannula 09/13/16 00:00 66 09/12/16 23:58 68 18 99 Nasal Cannula 2.0 28 09/12/16 23:50 66 18 99 Nasal Cannula 2.0 28 09/12/16 20:00 97.3 72 17 144/76 100 Nasal Cannula 09/12/16 20:00 67 09/12/16 19:02 70 18 99 Nasal Cannula 2.0 28 09/12/16 18:54 69 18 99 Nasal Cannula 2.0 28 09/12/16 18:53 Nasal Cannula 2.0 28 09/12/16 18:53 99 Nasal Cannula 2.0 28 09/12/16 16:00 64 09/12/16 16:00 98.5 67 18 149/70 97 Nasal Cannula 09/12/16 15:21 66 20 100 Nasal Cannula 2.0 09/12/16 15:10 65 18 100 Nasal Cannula 2.0 09/12/16 12:00 71 09/12/16 12:00 97.5 73 18 150/79 98 Nasal Cannula 2.0 09/12/16 11:04 Nasal Cannula 2.0 09/12/16 11:02 78 18 100 Nasal Cannula 2.0 Intake and Output 09/12/16 09/13/16 19:00 07:00 Intake Total 918 ml 740 ml Output Total 1500 ml 1000 ml Balance -582 ml -260 ml Free Water 60 ml 50 ml IV Total 798 ml 575 ml Tube Feeding 60 ml 115 ml Output Urine Total 1500 ml 1000 ml Height (Feet): 5 Height (Inches): 5.00 Weight (Pounds): 139 Objective Debilitated man sleepy / arousable NCAT supple CTA RRR Soft ND trace edema OBS, Stiff JEYE KRYSTINA THURMAN Sep 13, 2016 09:12
--- NOTE | 2016-09-13 09:20 | Endoscopy Procedure Note ---
Endoscopy Procedure Note Indication for Procedure: dysphagia Procedures Performed: PEG Operative Findings/Diagnosis: s/p PEG Specimen: none Pt Tolerated Procedure Well: Yes Estimated Blood Loss: minimal Anesthesiologist: see report Anesthesia: moderate sedation Medication Given: see anesthesia record Implant(s) used?: No 50 yrs or older w/o bx or poly: Not Applicable 10yrs. F/U not recommended: Not Applicable If not recommended, why?: KRYSTINA THURMAN Sep 13, 2016 09:20
--- NOTE | 2016-09-13 09:23 | Brief Operative Note ---
Immediate Post Operative Note Operative Note Chief Complaint: dysphagia Pre-op Diagnosis: dysphagia/malnutrition Procedure: PEG Post-op Diagnosis: s/p PEG Surgeon: anna Anesthesiologist: see report Anesthesia: MAC Specimen: none Complications: none Condition: stable Estimated Blood Loss: none Drains: none Implant(s) used?: No KRYSTINA THURMAN Sep 13, 2016 09:23
[2016-09-13] MEDS: Timolol 0.5% Op Soln 2.5ml BOTH EYES SCH ×2 (09:51→20:55)
[2016-09-13] MEDS: Losartan 50mg tab GT SCH (09:52)
[2016-09-13] MEDS: Sinemet 25/100 tab GT SCH ×4 (09:53→20:50)
[2016-09-13] MEDS: Docusate 100mg/10ml Liq GT SCH ×2 (09:53→18:16)
--- NOTE | 2016-09-13 10:52 | 48 Hour Post Anesthesia Eval ---
Post Anesthesia Evaluation Procedure: EGd and PEG Date of Evaluation: Sep 13, 2016 Time of Evaluation: 10:10 Blood Pressure Systolic: 135 0: 89 Pulse Rate: 74 Respiratory Rate: 13 Temperature (Fahrenheit): 98 O2 Sat by Pulse Oximetry: 98 Airway: patent Nausea: No Vomiting: No Pain Intensity: 0 Hydration Status: adequate Cardiopulmonary Status: at baseline Mental Status/LOC: patient returned to baseline Post-Anesthesia Complications: 0 Follow-up care needed: N/A - further care as per primary team ZULMA MEDEROS M.D. Sep 13, 2016 10:52
--- NOTE | 2016-09-13 11:10 | Diagnostic Imaging Report ---
Indication: Dyspnea Comparison: 09/12/16 A single view chest radiograph was obtained. Findings: Evidence of interstitial edema, cardiomegaly and bilateral effusions again demonstrated larger on the right. NG tube is in good position. 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
--- NOTE | 2016-09-13 11:46 | Infectious Diseases Prog Note ---
"Assessment/Plan Assessment/Plan antibiotics : ancef A 1. proteus | klebsiella UTI s/p rx 2. leucocytosis resolved 3. rectal VRE colonization 4. DM 5. HTN 6. CVA P 1. continue post op ancef Subjective ROS Limited/Unobtainable: Yes Allergies: Coded Allergies: No Known Allergies (Unverified , 09/06/16) Objective Vital Signs Last 24 Hour Vital Signs Date Time Temp Pulse Resp B/P Pulse Ox O2 Delivery O2 Flow Rate FiO2 09/13/16 10:52 74 13 98 09/13/16 10:35 68 20 100 Nasal Cannula 2.0 09/13/16 10:25 67 20 100 Nasal Cannula 2.0 09/13/16 09:52 135/89 09/13/16 09:15 98.0 74 13 135/89 98 Nasal Cannula 3.0 09/13/16 09:00 76 13 135/81 98 Nasal Cannula 3.0 09/13/16 08:55 75 14 125/75 98 Nasal Cannula 3.0 09/13/16 08:54 76 16 99 09/13/16 08:50 97.4 75 17 111/71 98 Nasal Cannula 3.0 09/13/16 07:01 86 18 100 Nasal Cannula 2.0 09/13/16 06:51 88 18 100 Nasal Cannula 2.0 09/13/16 06:50 Nasal Cannula 2.0 09/13/16 06:49 100 Nasal Cannula 2.0 09/13/16 04:00 97.2 74 19 156/77 96 Nasal Cannula 09/13/16 04:00 68 09/13/16 03:41 71 18 99 Nasal Cannula 2.0 09/13/16 03:32 75 16 97 Nasal Cannula 2.0 09/13/16 00:00 97.2 74 19 152/72 99 Nasal Cannula 09/13/16 00:00 66 09/12/16 23:58 68 18 99 Nasal Cannula 2.0 28 09/12/16 23:50 66 18 99 Nasal Cannula 2.0 28 09/12/16 20:00 97.3 72 17 144/76 100 Nasal Cannula 09/12/16 20:00 67 09/12/16 19:02 70 18 99 Nasal Cannula 2.0 28 09/12/16 18:54 69 18 99 Nasal Cannula 2.0 28 09/12/16 18:53 Nasal Cannula 2.0 28 09/12/16 18:53 99 Nasal Cannula 2.0 28 09/12/16 16:00 64 09/12/16 16:00 98.5 67 18 149/70 97 Nasal Cannula 09/12/16 15:21 66 20 100 Nasal Cannula 2.0 09/12/16 15:10 65 18 100 Nasal Cannula 2.0 09/12/16 12:00 71 09/12/16 12:00 97.5 73 18 150/79 98 Nasal Cannula 2.0 Height (Feet): 5 Height (Inches): 5.00 Weight (Pounds): 139 Respiratory/Chest: lungs clear Cardiovascular: normal rate, regular rhythm, no gallop/murmur Abdomen: soft, non tender, other - GT Extremities: no edema VIRGINIA HYATT Sep 13, 2016 11:46"
--- NOTE | 2016-09-13 16:30 | Procedure Note ---
DATE OF PROCEDURE: 09/13/2016 PROCEDURE: Upper gastrointestinal endoscopy with gastrostomy tube placement. SURGEON: Katie Satniago M.D. ANESTHESIA: Please see the separate anesthesiologist notes for details. PRE-ENDOSCOPIC DIAGNOSES: Dysphagia and malnutrition. POST-ENDOSCOPIC DIAGNOSIS: Status post gastrostomy tube placement. DESCRIPTION OF PROCEDURE: The procedure, its risks, indications, alternatives, and possible complications including, but not limited to, bleeding, infection, perforation, , and anesthesia complications were explained to the patient and informed consent was obtained. The patient was then sedated in the supine position. A diagnostic upper endoscope was introduced through the oropharynx and advanced to the duodenum without difficulty. The endoscope was then gradually withdrawn and mucosa examined carefully. Examination of the upper gastric mucosa did not reveal any abnormalities. A location for placement of the gastrostomy tube was identified by palpation and transillumination techniques. The outside skin was sterilely prepared, anesthetized, and incised and a trocar needle was used to place the gastrostomy tube using the standard pull technique. Position was verified endoscopically. The endoscope was removed and the patient was sent to recovery in good condition. COMPLICATIONS: None. RECOMMENDATIONS: 1. Observe overnight. 2. Begin tube feedings tomorrow. 3. Gastrostomy tube care per protocol. Katie Santiago M.D. DR: JUSTINA JOB#: [id number] CC:
[2016-09-13] MEDS: Tamsulosin 0.4mg cap GT SCH (20:50)
[2016-09-14] VITALS: BP 153/76
[2016-09-14] MEDS: ceFAZolin sod 0.5 GM in D5W 55 ML IV SCH ×3 (02:00→18:34)
[2016-09-14] MEDS: DuoNeb 0.5-3(2.5)mg/3ml neb HHN SCH ×6 (03:13→23:07)
--- NOTE | 2016-09-14 04:45 | Progress Note ---
DATE: 09/13/2016 CARDIOLOGY PROGRESS NOTE SUBJECTIVE: The patient is status post endoscopic percutaneous endoscopic gastrostomy placement today. No complications noted. The patient remains NPO on IV fluids. OBJECTIVE: VITAL SIGNS: Blood pressure 156/77, pulse 74, and respirations 19. No fevers. Left hemipareses. LUNGS: Bilateral breath sounds with no wheezing or rales. HEART: Regular rhythm and rate. Normal S1 and S2 with a fourth heart sound. ABDOMEN: Soft. EXTREMITIES: No edema. IMPRESSION: 1. Dysphagia. 2. Severe protein-calorie malnutrition. 3. Acute and chronic diastolic congestive heart failure. 4. Type 2 diabetes mellitus. 5. Cerebrovascular accident with left hemiparesis and dementia. 6. Hypertensive heart disease with rising blood pressure trend. PLAN: 1. Once nutrition is resumed by G-tube, we can fine tune and titrate antihypertensive and anti-failure drugs and discontinue IV fluids. 2. We will reassess over the next 24 hours in this regard. Felix Carranza M.D. DR: MOO JOB#: [id number] CC:
[2016-09-14 04:52] VITALS: BP 156/78
[2016-09-14] MEDS: NovoLOG Insulin Flexpen SUBQ SCH ×4 (06:00→18:41)
[2016-09-14 07:25] LABS: BASOPHILS % (AUTO) 0.6 % (0.0-2.0); EOSINOPHILS % (AUTO) 1.3 % (0.0-3.0); LYMPHOCYTES % (AUTO) 34.2 % (20.0-45.0); MEAN CORPUSCULAR HEMOGLOBIN 32.1 PG (27.0-31.0); MEAN CORPUSCULAR HGB CONC 33.6 G/DL (32.0-36.0); MEAN CORPUSCULAR VOLUME 96 FL (80-99); MEAN PLATELET VOLUME 4.8 FL (6.5-10.1); MONOCYTES % (AUTO) 9.9 % (1.0-10.0); NEUTROPHILS % (AUTO) 54.1 % (45.0-75.0); PLATELET COUNT 177 K/UL (150-450); RED CELL DISTRIBUTION WIDTH 11.6 % (11.6-14.8); WHITE BLOOD COUNT 4.4 K/UL (4.8-10.8)
[2016-09-14 07:39] VITALS: BP 149/81
[2016-09-14 07:45] LABS: MAGNESIUM 1.6 mg/dL (1.7-2.5)
[2016-09-14 07:47] LABS: HEMOLYSIS 23; IRON 49 ug/dL (59-158); TOTAL IRON BINDING CAPACITY 111 ug/dL (250-400)
[2016-09-14 07:48] LABS: ALANINE AMINOTRANSFERASE 5 U/L (3-41); ALBUMIN/GLOBULIN RATIO 0.3 (1.0-2.7); ANION GAP 6 (5-15); ASPARTATE AMINO TRANSFERASE 8 U/L (5-40); CALCIUM 7.3 mg/dL (8.6-10.2); CARBON DIOXIDE 25 mEQ/L (20-30); CHLORIDE 100 mEQ/L (98-107); CREATININE 0.5 mg/dL (0.7-1.2); GLOMERULAR FILTRATION RATE > 60 mL/min (>60); POTASSIUM 4.1 mEQ/L (3.4-4.9); SODIUM 131 mEQ/L (135-145); TOTAL PROTEIN 6.5 g/dL (6.6-8.7)
--- NOTE | 2016-09-14 08:17 | General Progress Note ---
Assessment/Plan Problem List: (1) Sepsis ICD Codes: A41.9 - Sepsis, unspecified organism SNOMED: 38384073 (2) Toxic metabolic encephalopathy ICD Codes: G92 - Toxic encephalopathy SNOMED: 718388831 (3) Pneumonia ICD Codes: J18.9 - Pneumonia, unspecified organism SNOMED: 088734557 Status: stable, progressing Assessment/Plan iv abx lasix x1 replace mg feeds per gi resp rx keep dry monitor cxr monitor labs GT care Subjective ROS Limited/Unobtainable: No Constitutional: Reports: malaise, weakness HEENT: Reports: no symptoms Cardiovascular: Reports: no symptoms Respiratory: Reports: no symptoms Gastrointestinal/Abdominal: Reports: difficulty swallowing Genitourinary: Reports: no symptoms Neurologic/Psychiatric: Reports: pre-existing deficit Endocrine: Reports: no symptoms Hematologic/Lymphatic: Reports: no symptoms Allergies: Coded Allergies: No Known Allergies (Unverified , 09/06/16) All Systems: reviewed and negative except above Subjective s/p uncomplicated gt. feeds not started yet. cxr with extensive interstitial edema. does not appear to be SOB Objective Last 24 Hour Vital Signs Date Time Temp Pulse Resp B/P Pulse Ox O2 Delivery O2 Flow Rate FiO2 09/14/16 07:39 97.3 68 20 149/81 100 Nasal Cannula 2.0 09/14/16 04:55 64 09/14/16 04:52 97.5 69 16 156/78 99 Nasal Cannula 2.0 09/14/16 03:29 63 18 100 Nasal Cannula 2.0 28 09/14/16 03:14 61 15 99 Nasal Cannula 2.0 09/14/16 00:38 65 09/14/16 00:00 97.7 69 18 153/76 100 Nasal Cannula 2.0 09/13/16 23:23 62 18 100 Nasal Cannula 2.0 28 09/13/16 23:07 62 18 99 Nasal Cannula 2.0 28 09/13/16 22:31 66 09/13/16 20:10 97.9 72 18 145/75 99 Nasal Cannula 2.0 09/13/16 20:07 97.9 72 18 99 09/13/16 19:51 66 18 100 Nasal Cannula 2.0 28 09/13/16 19:39 66 18 100 Nasal Cannula 2.0 28 09/13/16 19:39 Nasal Cannula 2.0 28 09/13/16 19:38 99 Nasal Cannula 2.0 28 09/13/16 16:00 97.7 66 17 134/77 100 Nasal Cannula 2.0 09/13/16 16:00 64 09/13/16 15:31 Nasal Cannula 2.0 09/13/16 15:14 Nasal Cannula 2.0 09/13/16 12:05 97.2 69 18 169/81 98 Nasal Cannula 2.0 09/13/16 12:00 67 09/13/16 10:52 74 13 98 09/13/16 10:35 68 20 100 Nasal Cannula 2.0 09/13/16 10:25 67 20 100 Nasal Cannula 2.0 09/13/16 09:52 135/89 09/13/16 09:15 98.0 74 13 135/89 98 Nasal Cannula 3.0 09/13/16 09:00 76 13 135/81 98 Nasal Cannula 3.0 09/13/16 08:55 75 14 125/75 98 Nasal Cannula 3.0 09/13/16 08:54 76 16 99 09/13/16 08:50 97.4 75 17 111/71 98 Nasal Cannula 3.0 Intake and Output 09/13/16 09/14/16 19:00 07:00 Intake Total 1222 ml 166 ml Output Total 580 ml 1000 ml Balance 642 ml -834 ml IV Total 1022 ml 166 ml Hemodialysis 200 ml Output Urine Total 580 ml 1000 ml # Voids 1 Laboratory Tests 09/14/16 06:48: White Blood Count 4.4L, Red Blood Count 2.90L, Hemoglobin 9.3L, Hematocrit 27.7L , Mean Corpuscular Volume 96, Mean Corpuscular Hemoglobin 32.1H, Mean Corpuscular Hemoglobin Concent 33.6, Red Cell Distribution Width 11.6, Platelet Count 177, Mean Platelet Volume 4.8L, Neutrophils (%) (Auto) 54.1, Lymphocytes ( %) (Auto) 34.2, Monocytes (%) (Auto) 9.9, Eosinophils (%) (Auto) 1.3, Basophils (%) (Auto) 0.6, Sodium Level 131L, Potassium Level 4.1, Chloride Level 100, Carbon Dioxide Level 25, Anion Gap 6, Blood Urea Nitrogen 5L, Creatinine 0.5L, Estimat Glomerular Filtration Rate > 60, Glucose Level 177H, Calcium Level 7.3L , Magnesium Level 1.6L, Iron Level 49L, Total Iron Binding Capacity 111L, Percent Iron Saturation 44, Unsaturated Iron Binding 62L, Total Bilirubin 0.3, Aspartate Amino Transf (AST/SGOT) 8, Alanine Aminotransferase (ALT/SGPT) 5, Alkaline Phosphatase 43, Pro-B-Type Natriuretic Peptide 1267H, Total Protein 6.5L, Albumin 1.7L, Globulin 4.8, Albumin/Globulin Ratio 0.3L Height (Feet): 5 Height (Inches): 5.00 Weight (Pounds): 139 Objective General Appearance: WD/WN, alert, confused Neck: supple Cardiovascular: regular rhythm Respiratory/Chest: no respiratory distress, no accessory muscle use, rhonchi - bilaterally Abdomen: normal bowel sounds, non tender, soft, no organomegaly Edema: no edema noted Arm (L), no edema noted Arm (R), no edema noted Leg (L), no edema noted Leg (R), no edema noted Pedal (L), no edema noted Pedal (R), no edema noted Generalized CHELSY DA SILVA Sep 14, 2016 08:17
[2016-09-14] MEDS: Losartan 50mg tab GT SCH (09:07)
[2016-09-14] MEDS: Sinemet 25/100 tab GT SCH ×4 (09:07→20:42)
[2016-09-14] MEDS: Docusate 100mg/10ml Liq GT SCH ×2 (09:07→18:34)
[2016-09-14] MEDS: Heparin 5000 units/ml inj SUBQ SCH ×2 (09:09→20:44)
[2016-09-14] MEDS: Brimonidine 0.2% Opth Sol BOTH EYES SCH ×2 (09:20→20:41)
--- NOTE | 2016-09-14 10:10 | Pulmonology Progress Note ---
Assessment/Plan Assessment/Plan IMPRESSION: 1. Respiratory insufficiency. 2. Evidence of congestion. 3. Noted hypoxemia. 4. Sinus tachycardia. 5. History of cerebrovascular accident with focal weakness. 6. History of diabetes. 7. Leukocytosis. 8. Possible sepsis. 9. abnormal chest XR with effusion PLAN care noted respiratory care without change antibiotics noted maintain negative in and out duplex negative follow up chest xr noted monitor effusions and tap if needed follow up exam for any change ID Noted for GT care discussed in detail impression, plan, and exam edited and reviewed in detail care discussed with RN Subjective ROS Limited/Unobtainable: Yes Allergies: Coded Allergies: No Known Allergies (Unverified , 09/06/16) Subjective minimal congestion GT in place Objective Last 24 Hour Vital Signs Date Time Temp Pulse Resp B/P Pulse Ox O2 Delivery O2 Flow Rate FiO2 09/14/16 09:07 149/81 09/14/16 07:39 97.3 68 20 149/81 100 Nasal Cannula 2.0 09/14/16 07:05 66 18 100 Nasal Cannula 2.0 28 09/14/16 07:00 100 Nasal Cannula 2.0 28 09/14/16 07:00 Nasal Cannula 2.0 28 09/14/16 07:00 68 20 100 Nasal Cannula 2.0 28 09/14/16 04:55 64 09/14/16 04:52 97.5 69 16 156/78 99 Nasal Cannula 2.0 09/14/16 03:29 63 18 100 Nasal Cannula 2.0 28 09/14/16 03:14 61 15 99 Nasal Cannula 2.0 28 09/14/16 00:38 65 09/14/16 00:00 97.7 69 18 153/76 100 Nasal Cannula 2.0 09/13/16 23:23 62 18 100 Nasal Cannula 2.0 28 09/13/16 23:07 62 18 99 Nasal Cannula 2.0 28 09/13/16 22:31 66 09/13/16 20:10 97.9 72 18 145/75 99 Nasal Cannula 2.0 09/13/16 20:07 97.9 72 18 99 09/13/16 19:51 66 18 100 Nasal Cannula 2.0 28 09/13/16 19:39 66 18 100 Nasal Cannula 2.0 28 09/13/16 19:39 Nasal Cannula 2.0 28 09/13/16 19:38 99 Nasal Cannula 2.0 28 09/13/16 16:00 97.7 66 17 134/77 100 Nasal Cannula 2.0 09/13/16 16:00 64 09/13/16 15:31 Nasal Cannula 2.0 09/13/16 15:14 Nasal Cannula 2.0 09/13/16 12:05 97.2 69 18 169/81 98 Nasal Cannula 2.0 09/13/16 12:00 67 09/13/16 10:52 74 13 98 09/13/16 10:35 68 20 100 Nasal Cannula 2.0 09/13/16 10:25 67 20 100 Nasal Cannula 2.0 Intake and Output 09/13/16 09/14/16 19:00 07:00 Intake Total 1222 ml 249 ml Output Total 580 ml 1000 ml Balance 642 ml -751 ml IV Total 1022 ml 249 ml Hemodialysis 200 ml Output Urine Total 580 ml 1000 ml # Voids 1 Objective PHYSICAL EXAMINATION: GENERAL: A well-developed male, NAD HEENT: Negative. The patient's extraocular movements are grossly intact. The oropharynx is clear. NECK: Supple. No adenopathy. LUNGS: With minimal rhonchi. Moderate air entry. no wheeze symmetric CARDIOVASCULAR: S1 and S2. Regular rate and rhythm without murmurs, rubs, or gallops. ABDOMEN: Soft, nontender, and nondistended. no HSM; NABS EXTREMITIES: No cyanosis. No clubbing. No edema. NEUROLOGIC: With focal weakness. Alert. Laboratory Tests 09/14/16 06:48: White Blood Count 4.4L, Red Blood Count 2.90L, Hemoglobin 9.3L, Hematocrit 27.7L , Mean Corpuscular Volume 96, Mean Corpuscular Hemoglobin 32.1H, Mean Corpuscular Hemoglobin Concent 33.6, Red Cell Distribution Width 11.6, Platelet Count 177, Mean Platelet Volume 4.8L, Neutrophils (%) (Auto) 54.1, Lymphocytes ( %) (Auto) 34.2, Monocytes (%) (Auto) 9.9, Eosinophils (%) (Auto) 1.3, Basophils (%) (Auto) 0.6, Sodium Level 131L, Potassium Level 4.1, Chloride Level 100, Carbon Dioxide Level 25, Anion Gap 6, Blood Urea Nitrogen 5L, Creatinine 0.5L, Estimat Glomerular Filtration Rate > 60, Glucose Level 177H, Calcium Level 7.3L , Magnesium Level 1.6L, Iron Level 49L, Total Iron Binding Capacity 111L, Percent Iron Saturation 44, Unsaturated Iron Binding 62L, Total Bilirubin 0.3, Aspartate Amino Transf (AST/SGOT) 8, Alanine Aminotransferase (ALT/SGPT) 5, Alkaline Phosphatase 43, Pro-B-Type Natriuretic Peptide 1267H, Total Protein 6.5L, Albumin 1.7L, Globulin 4.8, Albumin/Globulin Ratio 0.3L Current Medications Medications (Trade) Dose Ordered Sig/Mili Route PRN Reason Start Time Stop Time Status Last Admin Dose Admin Acetaminophen (Tylenol) 650 mg Q4H PRN GT Mild Pain/Temp > 100.5 09/12/16 20:15 10/12/16 20:14 Albuterol/ Ipratropium (DuoNeb 0.5-3(2.5)mg/3ml) 3 ml Q4HRT HHN 09/10/16 19:00 09/15/16 18:59 09/14/16 07:08 Brimonidine Tartrate (Alphagan) 1 drop Q8HR BOTH EYES 09/10/16 22:00 10/10/16 21:59 09/14/16 09:20 Carbidopa/Levodopa (Sinemet 25/100) 1 ea QID GT 09/12/16 21:00 10/12/16 20:59 09/14/16 09:07 Cefazolin Sodium 0.5 gm/Dextrose 55 ml @ 110 mls/hr Q8HR@0200,1000,1800 IV 09/13/16 18:00 09/20/16 17:59 09/14/16 09:31 Dextrose (Dextrose 50%) STAT PRN IV Hypoglycemia 09/11/16 15:15 10/11/16 15:14 Docusate Sodium (Colace) 100 mg BID GT 09/12/16 20:08 10/12/16 08:59 09/14/16 09:07 Furosemide (Lasix) 20 mg DAILY IV 09/14/16 09:00 10/14/16 08:59 09/14/16 09:18 Heparin Sodium (Porcine) (Heparin 5000 units/ml) 5,000 units EVERY 12 HOURS SUBQ 09/10/16 21:00 10/10/16 20:59 09/14/16 09:09 Insulin Aspart (NovoLOG) Q6HR SUBQ 09/13/16 00:00 10/13/16 00:00 Losartan Potassium (Cozaar) 100 mg DAILY GT 09/12/16 20:10 10/11/16 08:59 09/14/16 09:07 Magnesium Sulfate (Magnesium Sulfate 1gm/100ml) 100 ml @ 100 mls/hr Q1H IVPB 09/14/16 09:00 09/14/16 10:59 09/14/16 09:15 Promethazine HCl/ Dextromethorphan (Phenergan DM) 6.25 mg Q6H PRN GT For Cough 09/12/16 20:11 10/10/16 20:44 Ranitidine HCl (Zantac) 150 mg BEDTIME GT 09/12/16 20:11 10/10/16 20:59 09/13/16 20:50 Tamsulosin HCl 0.4 mg 0.4 mg BEDTIME GT 09/12/16 20:11 10/10/16 20:59 09/13/16 20:50 Timolol Maleate (Timoptic 0.5% Op Soln) 1 drop Q12HR BOTH EYES 09/10/16 21:00 10/10/16 20:59 09/13/16 20:55 STEPHANIE BRAUN Sep 14, 2016 10:10
--- NOTE | 2016-09-14 10:37 | Infectious Diseases Prog Note ---
"Assessment/Plan Assessment/Plan antibiotics : ancef A 1. proteus | klebsiella UTI s/p rx 2. leucocytosis resolved 3. rectal VRE colonization 4. DM 5. HTN 6. CVA P 1. continue post op ancef Subjective ROS Limited/Unobtainable: Yes Allergies: Coded Allergies: No Known Allergies (Unverified , 09/06/16) Objective Vital Signs Last 24 Hour Vital Signs Date Time Temp Pulse Resp B/P Pulse Ox O2 Delivery O2 Flow Rate FiO2 09/14/16 09:07 149/81 09/14/16 08:00 72 09/14/16 07:39 97.3 68 20 149/81 100 Nasal Cannula 2.0 09/14/16 07:05 66 18 100 Nasal Cannula 2.0 28 09/14/16 07:00 100 Nasal Cannula 2.0 28 09/14/16 07:00 Nasal Cannula 2.0 28 09/14/16 07:00 68 20 100 Nasal Cannula 2.0 28 09/14/16 04:55 64 09/14/16 04:52 97.5 69 16 156/78 99 Nasal Cannula 2.0 09/14/16 03:29 63 18 100 Nasal Cannula 2.0 28 09/14/16 03:14 61 15 99 Nasal Cannula 2.0 28 09/14/16 00:38 65 09/14/16 00:00 97.7 69 18 153/76 100 Nasal Cannula 2.0 09/13/16 23:23 62 18 100 Nasal Cannula 2.0 28 09/13/16 23:07 62 18 99 Nasal Cannula 2.0 28 09/13/16 22:31 66 09/13/16 20:10 97.9 72 18 145/75 99 Nasal Cannula 2.0 09/13/16 20:07 97.9 72 18 99 09/13/16 19:51 66 18 100 Nasal Cannula 2.0 28 09/13/16 19:39 66 18 100 Nasal Cannula 2.0 28 09/13/16 19:39 Nasal Cannula 2.0 28 09/13/16 19:38 99 Nasal Cannula 2.0 28 09/13/16 16:00 97.7 66 17 134/77 100 Nasal Cannula 2.0 09/13/16 16:00 64 09/13/16 15:31 Nasal Cannula 2.0 09/13/16 15:14 Nasal Cannula 2.0 09/13/16 12:05 97.2 69 18 169/81 98 Nasal Cannula 2.0 09/13/16 12:00 67 09/13/16 10:52 74 13 98 09/13/16 10:35 68 20 100 Nasal Cannula 2.0 Height (Feet): 5 Height (Inches): 5.00 Weight (Pounds): 139 Respiratory/Chest: lungs clear Cardiovascular: normal rate, regular rhythm, no gallop/murmur Abdomen: soft, non tender Extremities: no edema Laboratory Tests Test 09/14/16 06:48 White Blood Count 4.4 K/UL (4.8-10.8) L Red Blood Count 2.90 M/UL (4.70-6.10) L Hemoglobin 9.3 G/DL (14.2-18.0) L Hematocrit 27.7 % (42.0-52.0) L Mean Corpuscular Volume 96 FL (80-99) Mean Corpuscular Hemoglobin 32.1 PG (27.0-31.0) H Mean Corpuscular Hemoglobin Concent 33.6 G/DL (32.0-36.0) Red Cell Distribution Width 11.6 % (11.6-14.8) Platelet Count 177 K/UL (150-450) Mean Platelet Volume 4.8 FL (6.5-10.1) L Neutrophils (%) (Auto) 54.1 % (45.0-75.0) Lymphocytes (%) (Auto) 34.2 % (20.0-45.0) Monocytes (%) (Auto) 9.9 % (1.0-10.0) Eosinophils (%) (Auto) 1.3 % (0.0-3.0) Basophils (%) (Auto) 0.6 % (0.0-2.0) Sodium Level 131 mEQ/L (135-145) L Potassium Level 4.1 mEQ/L (3.4-4.9) Chloride Level 100 mEQ/L (98-107) Carbon Dioxide Level 25 mEQ/L (20-30) Anion Gap 6 (5-15) Blood Urea Nitrogen 5 mg/dL (7-23) L Creatinine 0.5 mg/dL (0.7-1.2) L Estimat Glomerular Filtration Rate > 60 mL/min (>60) Glucose Level 177 mg/dL (74-106) H Calcium Level 7.3 mg/dL (8.6-10.2) L Magnesium Level 1.6 mg/dL (1.7-2.5) L Iron Level 49 ug/dL (59-158) L Total Iron Binding Capacity 111 ug/dL (250-400) L Percent Iron Saturation 44 % (15-50) Unsaturated Iron Binding 62 ug/dL (112-346) L Total Bilirubin 0.3 mg/dL (0.0-1.2) Aspartate Amino Transf (AST/SGOT) 8 U/L (5-40) Alanine Aminotransferase (ALT/SGPT) 5 U/L (3-41) Alkaline Phosphatase 43 U/L (40-129) Pro-B-Type Natriuretic Peptide 1267 pg/mL (0-125) H Total Protein 6.5 g/dL (6.6-8.7) L Albumin 1.7 g/dL (3.5-5.2) L Globulin 4.8 g/dL Albumin/Globulin Ratio 0.3 (1.0-2.7) L VIR[place] HYATT Sep 14, 2016 10:37"
--- NOTE | 2016-09-14 11:11 | General Progress Note ---
Assessment/Plan Problem List: (1) Dysphagia ICD Codes: R13.10 - Dysphagia, unspecified SNOMED: 19007050, 277810912 (2) G tube feedings ICD Codes: Z93.1 - Gastrostomy status SNOMED: 518426781, 071478306 (3) Pneumonia ICD Codes: J18.9 - Pneumonia, unspecified organism SNOMED: 739090288 (4) Sepsis ICD Codes: A41.9 - Sepsis, unspecified organism SNOMED: 94320637 Assessment/Plan start GTF fu labs GT flush Subjective ROS Limited/Unobtainable: No Allergies: Coded Allergies: No Known Allergies (Unverified , 09/06/16) Objective Last 24 Hour Vital Signs Date Time Temp Pulse Resp B/P Pulse Ox O2 Delivery O2 Flow Rate FiO2 09/14/16 09:07 149/81 09/14/16 08:00 72 09/14/16 07:39 97.3 68 20 149/81 100 Nasal Cannula 2.0 09/14/16 07:05 66 18 100 Nasal Cannula 2.0 28 09/14/16 07:00 100 Nasal Cannula 2.0 28 09/14/16 07:00 Nasal Cannula 2.0 28 09/14/16 07:00 68 20 100 Nasal Cannula 2.0 28 09/14/16 04:55 64 09/14/16 04:52 97.5 69 16 156/78 99 Nasal Cannula 2.0 09/14/16 03:29 63 18 100 Nasal Cannula 2.0 28 09/14/16 03:14 61 15 99 Nasal Cannula 2.0 28 09/14/16 00:38 65 09/14/16 00:00 97.7 69 18 153/76 100 Nasal Cannula 2.0 09/13/16 23:23 62 18 100 Nasal Cannula 2.0 28 09/13/16 23:07 62 18 99 Nasal Cannula 2.0 28 09/13/16 22:31 66 09/13/16 20:10 97.9 72 18 145/75 99 Nasal Cannula 2.0 09/13/16 20:07 97.9 72 18 99 09/13/16 19:51 66 18 100 Nasal Cannula 2.0 28 09/13/16 19:39 66 18 100 Nasal Cannula 2.0 28 09/13/16 19:39 Nasal Cannula 2.0 28 09/13/16 19:38 99 Nasal Cannula 2.0 28 09/13/16 16:00 97.7 66 17 134/77 100 Nasal Cannula 2.0 09/13/16 16:00 64 09/13/16 15:31 Nasal Cannula 2.0 09/13/16 15:14 Nasal Cannula 2.0 09/13/16 12:05 97.2 69 18 169/81 98 Nasal Cannula 2.0 09/13/16 12:00 67 Intake and Output 09/13/16 09/14/16 19:00 07:00 Intake Total 1222 ml 249 ml Output Total 580 ml 1000 ml Balance 642 ml -751 ml IV Total 1022 ml 249 ml Hemodialysis 200 ml Output Urine Total 580 ml 1000 ml # Voids 1 Laboratory Tests 09/14/16 06:48: White Blood Count 4.4L, Red Blood Count 2.90L, Hemoglobin 9.3L, Hematocrit 27.7L , Mean Corpuscular Volume 96, Mean Corpuscular Hemoglobin 32.1H, Mean Corpuscular Hemoglobin Concent 33.6, Red Cell Distribution Width 11.6, Platelet Count 177, Mean Platelet Volume 4.8L, Neutrophils (%) (Auto) 54.1, Lymphocytes ( %) (Auto) 34.2, Monocytes (%) (Auto) 9.9, Eosinophils (%) (Auto) 1.3, Basophils (%) (Auto) 0.6, Sodium Level 131L, Potassium Level 4.1, Chloride Level 100, Carbon Dioxide Level 25, Anion Gap 6, Blood Urea Nitrogen 5L, Creatinine 0.5L, Estimat Glomerular Filtration Rate > 60, Glucose Level 177H, Calcium Level 7.3L , Magnesium Level 1.6L, Iron Level 49L, Total Iron Binding Capacity 111L, Percent Iron Saturation 44, Unsaturated Iron Binding 62L, Total Bilirubin 0.3, Aspartate Amino Transf (AST/SGOT) 8, Alanine Aminotransferase (ALT/SGPT) 5, Alkaline Phosphatase 43, Pro-B-Type Natriuretic Peptide 1267H, Total Protein 6.5L, Albumin 1.7L, Globulin 4.8, Albumin/Globulin Ratio 0.3L Height (Feet): 5 Height (Inches): 5.00 Weight (Pounds): 139 General Appearance: no apparent distress EENT: normal ENT inspection Neck: supple Cardiovascular: normal rate Respiratory/Chest: decreased breath sounds Abdomen: normal bowel sounds, non tender, soft Extremities: non-tender JEIMY BAKER Sep 14, 2016 11:11
[2016-09-14 11:46] VITALS: BP 140/81
[2016-09-14] MEDS: Timolol 0.5% Op Soln 2.5ml BOTH EYES SCH ×2 (13:16→20:42)
[2016-09-14] MEDS ORDERED: NS 275ml ONE (15:59)
[2016-09-14] MEDS ORDERED: Sterile Water Irrig 1000ml IRRIG ONE (15:59)
[2016-09-14 16:07] VITALS: BP 142/84
[2016-09-14 20:00] VITALS: BP 112/65
[2016-09-14] MEDS: Tamsulosin 0.4mg cap GT SCH (20:42)
[2016-09-14] MEDS ORDERED: KCl 10% 20 mEq/15ml liquid GT ONE (23:15)
[2016-09-15] VITALS: BP 137/75
[2016-09-15] MEDS: NovoLOG Insulin Flexpen SUBQ SCH ×3 (00:46→14:27)
[2016-09-15] MEDS: ceFAZolin sod 0.5 GM in D5W 55 ML IV SCH ×2 (02:07→10:14)
[2016-09-15] MEDS: DuoNeb 0.5-3(2.5)mg/3ml neb HHN SCH ×4 (03:04→15:56)
[2016-09-15 04:45] VITALS: BP 148/68
[2016-09-15] MEDS: Brimonidine 0.2% Opth Sol BOTH EYES SCH ×2 (06:32→14:26)
[2016-09-15 07:57] VITALS: BP 141/70
[2016-09-15] MEDS ORDERED: FUROSEMIDE20 M1 ORAL (08:16)
[2016-09-15] MEDS ORDERED: COZAAR50 MG GT (08:16)
--- NOTE | 2016-09-15 08:28 | Cardiology Report ---
APPROVED REPORT EKG Measurement Heart [id number] MI [id number] [id number] Sinus tachycardia Otherwise normal ECG
--- NOTE | 2016-09-15 08:50 | Pulmonology Progress Note ---
Assessment/Plan Assessment/Plan IMPRESSION: 1. Respiratory insufficiency. 2. Evidence of congestion. 3. Noted hypoxemia. 4. Sinus tachycardia. 5. History of cerebrovascular accident with focal weakness. 6. History of diabetes. 7. Leukocytosis. 8. Possible sepsis. 9. abnormal chest XR with effusion PLAN care noted exam without change respiratory care without change antibiotics noted maintain negative in and out duplex negative follow up chest xr for change monitor effusions and tap if needed follow up exam for any change ID Noted care discussed in detail impression, plan, and exam edited and reviewed in detail care discussed with RN Subjective ROS Limited/Unobtainable: Yes Allergies: Coded Allergies: No Known Allergies (Unverified , 09/06/16) Subjective minimal congestion GT in place Objective Last 24 Hour Vital Signs Date Time Temp Pulse Resp B/P Pulse Ox O2 Delivery O2 Flow Rate FiO2 09/15/16 07:57 97.9 88 20 141/70 97 Nasal Cannula 2.0 09/15/16 07:30 89 18 99 Nasal Cannula 2.0 09/15/16 07:30 99 Nasal Cannula 2.0 28 09/15/16 07:30 88 16 99 Nasal Cannula 2.0 28 09/15/16 07:30 Nasal Cannula 2.0 28 09/15/16 04:45 97.7 82 19 148/68 Room Air 09/15/16 03:21 80 09/15/16 03:16 86 18 99 Nasal Cannula 2.0 09/15/16 03:05 70 16 99 Nasal Cannula 2.0 09/15/16 01:12 72 09/15/16 00:00 97.8 79 19 137/75 98 Nasal Cannula 2.0 09/15/16 00:00 97.8 84 19 137/75 98 Nasal Cannula 2.0 28 09/14/16 23:30 81 18 100 Nasal Cannula 2.0 09/14/16 23:15 78 20 100 Nasal Cannula 2.0 28 09/14/16 22:51 70 09/14/16 20:00 97.1 79 19 112/65 98 Nasal Cannula 2.0 09/14/16 19:13 86 18 100 Nasal Cannula 2.0 09/14/16 19:01 100 Nasal Cannula 2.0 28 09/14/16 19:01 Nasal Cannula 2.0 28 09/14/16 19:01 80 20 100 Nasal Cannula 2.0 28 09/14/16 16:07 97.5 70 20 142/84 100 Nasal Cannula 2.0 09/14/16 16:00 74 09/14/16 15:40 71 18 100 Nasal Cannula 2.0 09/14/16 15:30 72 20 100 Nasal Cannula 2.0 28 09/14/16 12:00 76 09/14/16 11:46 97.3 72 18 140/81 98 Nasal Cannula 2.0 09/14/16 11:05 67 18 100 Nasal Cannula 2.0 28 09/14/16 11:00 66 18 100 Nasal Cannula 2.0 28 09/14/16 09:07 149/81 Intake and Output 09/14/16 09/15/16 19:00 07:00 Intake Total 918 ml Output Total 1900 ml 2100 ml Balance -982 ml -2100 ml Free Water 100 ml IV Total 438 ml Tube Feeding 380 ml Output Urine Total 1900 ml 2100 ml Objective PHYSICAL EXAMINATION: GENERAL: A well-developed male, NAD HEENT: Negative. The patient's extraocular movements are grossly intact. The oropharynx is clear. NECK: Supple. No adenopathy. LUNGS: With minimal rhonchi. Moderate air entry. no wheeze symmetric CARDIOVASCULAR: S1 and S2. Regular rate and rhythm without murmurs, rubs, or gallops. ABDOMEN: Soft, nontender, and nondistended. no HSM; NABS EXTREMITIES: No cyanosis. No clubbing. No edema. NEUROLOGIC: With focal weakness. Alert. Current Medications Medications (Trade) Dose Ordered Sig/Mili Route PRN Reason Start Time Stop Time Status Last Admin Dose Admin Acetaminophen (Tylenol) 650 mg Q4H PRN GT Mild Pain/Temp > 100.5 09/12/16 20:15 10/12/16 20:14 Albuterol/ Ipratropium (DuoNeb 0.5-3(2.5)mg/3ml) 3 ml Q4HRT HHN 09/10/16 19:00 09/15/16 18:59 09/15/16 07:53 Brimonidine Tartrate (Alphagan) 1 drop Q8HR BOTH EYES 09/10/16 22:00 10/10/16 21:59 09/15/16 06:32 Carbidopa/Levodopa (Sinemet 25/100) 1 ea QID GT 09/12/16 21:00 10/12/16 20:59 09/14/16 20:42 Cefazolin Sodium/ Dextrose (Ancef/D5W) 55 ml @ 110 mls/hr Q8HR@0200,1000,1800 IV 09/13/16 18:00 09/20/16 17:59 09/15/16 02:07 Dextrose (Dextrose 50%) STAT PRN IV Hypoglycemia 09/11/16 15:15 10/11/16 15:14 Docusate Sodium (Colace) 100 mg BID GT 09/12/16 20:08 10/12/16 08:59 09/14/16 18:34 Furosemide (Lasix) 20 mg DAILY IV 09/14/16 09:00 10/14/16 08:59 09/14/16 09:18 Heparin Sodium (Porcine) (Heparin 5000 units/ml) 5,000 units EVERY 12 HOURS SUBQ 09/10/16 21:00 10/10/16 20:59 09/14/16 20:44 Insulin Aspart (NovoLOG) Q6HR SUBQ 09/13/16 00:00 10/13/16 00:00 09/15/16 06:34 Losartan Potassium (Cozaar) 100 mg DAILY GT 09/12/16 20:10 10/11/16 08:59 09/14/16 09:07 Promethazine HCl/ Dextromethorphan (Phenergan DM) 6.25 mg Q6H PRN GT For Cough 09/12/16 20:11 10/10/16 20:44 Ranitidine HCl (Zantac) 150 mg BEDTIME GT 09/12/16 20:11 10/10/16 20:59 09/14/16 20:42 Tamsulosin HCl 0.4 mg 0.4 mg BEDTIME GT 09/12/16 20:11 10/10/16 20:59 09/14/16 20:42 Timolol Maleate (Timoptic 0.5% Op Soln) 1 drop Q12HR BOTH EYES 09/10/16 21:00 10/10/16 20:59 09/14/16 20:42 STEPHANIE BRAUN Sep 15, 2016 08:50
--- NOTE | 2016-09-15 08:51 | General Progress Note ---
Assessment/Plan Problem List: (1) Dysphagia ICD Codes: R13.10 - Dysphagia, unspecified SNOMED: 97142605, 316806532 (2) G tube feedings ICD Codes: Z93.1 - Gastrostomy status SNOMED: 693091162, 608122352 (3) Pneumonia ICD Codes: J18.9 - Pneumonia, unspecified organism SNOMED: 376251863 (4) Sepsis ICD Codes: A41.9 - Sepsis, unspecified organism SNOMED: 09858518 Assessment/Plan GTF fu labs GT flush dc planning per primary team Subjective ROS Limited/Unobtainable: No Allergies: Coded Allergies: No Known Allergies (Unverified , 09/06/16) Objective Last 24 Hour Vital Signs Date Time Temp Pulse Resp B/P Pulse Ox O2 Delivery O2 Flow Rate FiO2 09/15/16 07:57 97.9 88 20 141/70 97 Nasal Cannula 2.0 09/15/16 07:30 89 18 99 Nasal Cannula 2.0 09/15/16 07:30 99 Nasal Cannula 2.0 28 09/15/16 07:30 88 16 99 Nasal Cannula 2.0 28 09/15/16 07:30 Nasal Cannula 2.0 28 09/15/16 04:45 97.7 82 19 148/68 Room Air 09/15/16 03:21 80 09/15/16 03:16 86 18 99 Nasal Cannula 2.0 09/15/16 03:05 70 16 99 Nasal Cannula 2.0 28 09/15/16 01:12 72 09/15/16 00:00 97.8 79 19 137/75 98 Nasal Cannula 2.0 09/15/16 00:00 97.8 84 19 137/75 98 Nasal Cannula 2.0 28 09/14/16 23:30 81 18 100 Nasal Cannula 2.0 09/14/16 23:15 78 20 100 Nasal Cannula 2.0 28 09/14/16 22:51 70 09/14/16 20:00 97.1 79 19 112/65 98 Nasal Cannula 2.0 09/14/16 19:13 86 18 100 Nasal Cannula 2.0 09/14/16 19:01 100 Nasal Cannula 2.0 28 09/14/16 19:01 Nasal Cannula 2.0 28 09/14/16 19:01 80 20 100 Nasal Cannula 2.0 28 09/14/16 16:07 97.5 70 20 142/84 100 Nasal Cannula 2.0 09/14/16 16:00 74 09/14/16 15:40 71 18 100 Nasal Cannula 2.0 09/14/16 15:30 72 20 100 Nasal Cannula 2.0 28 09/14/16 12:00 76 09/14/16 11:46 97.3 72 18 140/81 98 Nasal Cannula 2.0 09/14/16 11:05 67 18 100 Nasal Cannula 2.0 28 09/14/16 11:00 66 18 100 Nasal Cannula 2.0 28 09/14/16 09:07 149/81 Intake and Output 09/14/16 09/15/16 19:00 07:00 Intake Total 918 ml Output Total 1900 ml 2100 ml Balance -982 ml -2100 ml Free Water 100 ml IV Total 438 ml Tube Feeding 380 ml Output Urine Total 1900 ml 2100 ml Height (Feet): 5 Height (Inches): 5.00 Weight (Pounds): 139 General Appearance: alert EENT: normal ENT inspection Neck: supple Cardiovascular: normal rate Respiratory/Chest: decreased breath sounds Abdomen: normal bowel sounds, non tender, soft Extremities: non-tender JEIMY BAKER Sep 15, 2016 08:51
[2016-09-15] MEDS: Sinemet 25/100 tab GT SCH ×2 (10:14→14:26)
[2016-09-15] MEDS: Losartan 50mg tab GT SCH (10:14)
[2016-09-15] MEDS: Docusate 100mg/10ml Liq GT SCH (10:14)
[2016-09-15] MEDS: Timolol 0.5% Op Soln 2.5ml BOTH EYES SCH (10:15)
[2016-09-15] MEDS: Heparin 5000 units/ml inj SUBQ SCH (10:20)
--- NOTE | 2016-09-15 10:45 | Progress Note ---
DATE: 09/14/2016 CARDIOLOGY PROGRESS NOTE SUBJECTIVE: The patient is status post G-tube feedings has been initiated. IV fluids have been discontinued. The patient without shortness of breath. OBJECTIVE: VITAL SIGNS: Blood pressure 149/81, pulse 68, and respirations 20. NECK: Supple. LUNGS: With coarse breath sounds and rales. CARDIAC: Regular rhythm rate. Normal S1 and S2 with a fourth heart sound. ABDOMEN: Soft. No focal tenderness and G-tube is intact with no . EXTREMITIES: Notable for dependent edema. LABORATORY AND DIAGNOSTIC DATA: Chest x-ray reveals extensive interstitial edema and infiltrate. White count 4.4 and hemoglobin 9.3. Magnesium 1.6. BUN 5, creatinine 0.5 and potassium 4.1. Albumin is 1.7. Pro-natriuretic peptide 1267. IMPRESSION: 1. Acute on chronic diastolic congestive heart failure. 2. Aspiration pneumonia. 3. Dysphagia, status post gastrostomy tube. 4. Severe protein-calorie malnutrition, third spacing. 5. Hypomagnesemia PLAN: 1. IV magnesium. 2. Off IV fluids. 3. Diuresis. 4. Monitor volume status and cardiorenal parameters. Felix Carranza M.D. DR: Chika JOB#: [id number] CC:
[2016-09-15 11:44] LABS: ALANINE AMINOTRANSFERASE 5 U/L (3-41); ALBUMIN/GLOBULIN RATIO 0.3 (1.0-2.7); ANION GAP 8 (5-15); ASPARTATE AMINO TRANSFERASE 12 U/L (5-40); CALCIUM 7.6 mg/dL (8.6-10.2); CARBON DIOXIDE 28 mEQ/L (20-30); CHLORIDE 95 mEQ/L (98-107); CREATININE 0.7 mg/dL (0.7-1.2); GLOMERULAR FILTRATION RATE > 60 mL/min (>60); HEMOLYSIS 4; POTASSIUM 4.4 mEQ/L (3.4-4.9); SODIUM 131 mEQ/L (135-145); TOTAL PROTEIN 6.9 g/dL (6.6-8.7)
[2016-09-15 11:47] VITALS: BP 135/71
--- NOTE | 2016-09-15 12:52 | Infectious Diseases Prog Note ---
Assessment/Plan Assessment/Plan A: Sepsis resolved UTI CHF HPN DM Anemia s/p CVA VRE colonization P: Discontinue Ancef Subjective ROS Limited/Unobtainable: Yes Allergies: Coded Allergies: No Known Allergies (Unverified , 09/06/16) Objective Vital Signs Last 24 Hour Vital Signs Date Time Temp Pulse Resp B/P Pulse Ox O2 Delivery O2 Flow Rate FiO2 09/15/16 11:47 97.7 87 20 135/71 98 Nasal Cannula 2.0 09/15/16 11:27 80 18 100 Nasal Cannula 2.0 09/15/16 11:26 78 16 100 Nasal Cannula 2.0 28 09/15/16 10:14 141/70 09/15/16 08:00 85 09/15/16 07:57 97.9 88 20 141/70 97 Nasal Cannula 2.0 09/15/16 07:30 89 18 99 Nasal Cannula 2.0 09/15/16 07:30 99 Nasal Cannula 2.0 28 09/15/16 07:30 88 16 99 Nasal Cannula 2.0 09/15/16 07:30 Nasal Cannula 2.0 28 09/15/16 04:45 97.7 82 19 148/68 Room Air 09/15/16 03:21 80 09/15/16 03:16 86 18 99 Nasal Cannula 2.0 09/15/16 03:05 70 16 99 Nasal Cannula 2.0 09/15/16 01:12 72 09/15/16 00:00 97.8 79 19 137/75 98 Nasal Cannula 2.0 09/15/16 00:00 97.8 84 19 137/75 98 Nasal Cannula 2.0 09/14/16 23:30 81 18 100 Nasal Cannula 2.0 09/14/16 23:15 78 20 100 Nasal Cannula 2.0 28 09/14/16 22:51 70 09/14/16 20:00 97.1 79 19 112/65 98 Nasal Cannula 2.0 09/14/16 19:13 86 18 100 Nasal Cannula 2.0 09/14/16 19:01 100 Nasal Cannula 2.0 28 09/14/16 19:01 Nasal Cannula 2.0 28 09/14/16 19:01 80 20 100 Nasal Cannula 2.0 28 09/14/16 16:07 97.5 70 20 142/84 100 Nasal Cannula 2.0 09/14/16 16:00 74 09/14/16 15:40 71 18 100 Nasal Cannula 2.0 09/14/16 15:30 72 20 100 Nasal Cannula 2.0 28 Height (Feet): 5 Height (Inches): 5.00 Weight (Pounds): 139 General Appearance: no acute distress HEENT: mucous membranes moist Respiratory/Chest: lungs clear, other - O2 by cannula Cardiovascular: normal rate Abdomen: soft, non tender, other - GT feeding Extremities: no edema Neurologic/Psychiatric: other - sleeping Musculoskeletal: atrophy Laboratory Tests Test 09/15/16 10:50 Sodium Level 131 mEQ/L (135-145) L Potassium Level 4.4 mEQ/L (3.4-4.9) Chloride Level 95 mEQ/L (98-107) L Carbon Dioxide Level 28 mEQ/L (20-30) Anion Gap 8 (5-15) Blood Urea Nitrogen 10 mg/dL (7-23) Creatinine 0.7 mg/dL (0.7-1.2) Estimat Glomerular Filtration Rate > 60 mL/min (>60) Glucose Level 187 mg/dL (74-106) H Calcium Level 7.6 mg/dL (8.6-10.2) L Total Bilirubin < 0.2 mg/dL (0.0-1.2) Aspartate Amino Transf (AST/SGOT) 12 U/L (5-40) Alanine Aminotransferase (ALT/SGPT) 5 U/L (3-41) Alkaline Phosphatase 72 U/L (40-129) Total Protein 6.9 g/dL (6.6-8.7) Albumin 1.9 g/dL (3.5-5.2) L Globulin 5.0 g/dL Albumin/Globulin Ratio 0.3 (1.0-2.7) L Current Medications Medications (Trade) Dose Ordered Sig/Mili Route PRN Reason Start Time Stop Time Status Last Admin Dose Admin Acetaminophen (Tylenol) 650 mg Q4H PRN GT Mild Pain/Temp > 100.5 09/12/16 20:15 10/12/16 20:14 Albuterol/ Ipratropium (DuoNeb 0.5-3(2.5)mg/3ml) 3 ml Q4HRT HHN 09/10/16 19:00 09/15/16 18:59 09/15/16 11:28 Brimonidine Tartrate (Alphagan) 1 drop Q8HR BOTH EYES 09/10/16 22:00 10/10/16 21:59 09/15/16 06:32 Carbidopa/Levodopa (Sinemet 25/100) 1 ea QID GT 09/12/16 21:00 10/12/16 20:59 09/15/16 10:14 Cefazolin Sodium/ Dextrose (Ancef/D5W) 55 ml @ 110 mls/hr Q8HR@0200,1000,1800 IV 09/13/16 18:00 09/20/16 17:59 09/15/16 10:14 Dextrose (Dextrose 50%) STAT PRN IV Hypoglycemia 09/11/16 15:15 10/11/16 15:14 Docusate Sodium (Colace) 100 mg BID GT 09/12/16 20:08 10/12/16 08:59 09/15/16 10:14 Furosemide (Lasix) 20 mg DAILY IV 09/14/16 09:00 10/14/16 08:59 09/15/16 10:15 Heparin Sodium (Porcine) (Heparin 5000 units/ml) 5,000 units EVERY 12 HOURS SUBQ 09/10/16 21:00 10/10/16 20:59 09/15/16 10:20 Insulin Aspart (NovoLOG) Q6HR SUBQ 09/13/16 00:00 10/13/16 00:00 09/15/16 06:34 Losartan Potassium (Cozaar) 100 mg DAILY GT 09/12/16 20:10 10/11/16 08:59 09/15/16 10:14 Promethazine HCl/ Dextromethorphan (Phenergan DM) 6.25 mg Q6H PRN GT For Cough 09/12/16 20:11 10/10/16 20:44 Ranitidine HCl (Zantac) 150 mg BEDTIME GT 09/12/16 20:11 10/10/16 20:59 09/14/16 20:42 Tamsulosin HCl 0.4 mg 0.4 mg BEDTIME GT 09/12/16 20:11 10/10/16 20:59 09/14/16 20:42 Timolol Maleate (Timoptic 0.5% Op Soln) 1 drop Q12HR BOTH EYES 09/10/16 21:00 10/10/16 20:59 09/15/16 10:15 RANDALL MCKEON Sep 15, 2016 12:52
[2016-09-15] MEDS ORDERED: Tubing IV Secondary IV ONE (15:40)
[2016-09-15 16:05] VITALS: BP 134/72
--- NOTE | 2016-09-15 23:00 | Progress Note ---
DATE: 09/15/2016 CARDIOLOGY PROGRESS NOTE SUBJECTIVE: The patient is tolerating feedings. No shortness of breath. No nausea or vomiting. OBJECTIVE: VITAL SIGNS: Blood pressure 141/70, pulse 78, and respirations 16. LUNGS: Generally clear. CARDIAC: Regular rhythm and rate. Normal S1 and S2. ABDOMEN: Soft. G-tube is intact. EXTREMITIES: No edema. LABORATORY DATA: BUN 10 and creatinine 0.7. Albumin is 1.9. IMPRESSION: 1. Dysphagia. 2. Cerebrovascular accident with left hemiparesis. 3. Severe protein-calorie malnutrition. 4. Status post gastrostomy tube. 5. Dilutional hyponatremia. 6. Acute and chronic diastolic congestive heart failure. 7. Compensated hypomagnesemia status post replacement. 8. Aspiration pneumonia, resolved. 9. Sepsis, recovered. PLAN: 1. [facility] facility. 2. Maintain current cardiovascular regimen without change. 3. Dr. Macedo to follow the patient at jail facility. 4. Discharge medication regimen reviewed. Felix Carranza M.D. DR: MOO JOB#: [id number] CC:
--- NOTE | 2016-09-16 02:15 | Discharge Summary ---
DATE OF ADMISSION: 09/06/2016 DATE OF DISCHARGE: 09/15/2016 CHIEF COMPLAINT: 1. Pneumonia. 2. Respiratory failure. 3. Toxic metabolic encephalopathy. 4. Prior history of stroke. 5. Hypertension. 6. Diabetes. 7. Aspiration pneumonia. 8. Dysphagia, status post G-tube placement. DISCHARGE DIAGNOSES: 1. Pneumonia. 2. Respiratory failure. 3. Toxic metabolic encephalopathy. 4. Prior history of stroke. 5. Hypertension. 6. Diabetes. 7. Aspiration pneumonia. 8. Dysphagia, status post G-tube placement. HOSPITAL COURSE: The patient is an unfortunate male, admitted with complaints of shortness of breath, cough, and congestion. He was initially placed on BiPAP. He was diagnosed with aspiration pneumonia. He received intravenous antibiotics and respiratory treatments. The patient's pneumonia improved, but he failed a swallow evaluation. After discussion with family members, they agreed to placement of the G-tube. He underwent placement of the G-tube without complication. On discharge, he is doing well. He will be [facility] to a prison facility on G-tube feedings. DISCHARGE MEDICATIONS: Please see discharge medication list for discharge medications. DIET: G-tube feedings. ACTIVITY: Ad-branden. FOLLOWUP: The patient is to follow up in one to two days by the patient's PMD. Greyson Upton M.D. DR: EUGENIA JOB#: [id number] CC:
--- NOTE | 2016-09-16 15:50 | Diagnostic Imaging Report ---
Indication: Dysphasia Procedure and findings: Real-time fluoroscopic imaging performed in a lateral projection in conjunction with the speech pathologist evaluation. Variable consistencies of barium given per mouth. Findings: Significant abnormalities of both oral and pharyngeal phases of swallowing are demonstrated. Total fluoroscopic time 165 seconds. Both laryngeal penetration and trace aspiration were noted. Abnormal video swallow. Please refer to speech pathology evaluation for more information.
== END 2016-09-15 16:45 | DRG 871 ==
LOC: EDBD 11:38 → EDBEDREQ 12:30 → EMR 13:10 → 2W 13:25 → EDBEDREQ 13:36 → 2W 09-07 09:08 → 2E 09-10 17:54
PROC: 5A09357 Assistance with Respiratory Ventilation, Less than 24 Consecutive Hours, Continuous Positive Airway Pressure (ICD-10-PCS; principal; 2016-09-06)
PROC: 0DH63UZ Insertion of Feeding Device into Stomach, Percutaneous Approach (ICD-10-PCS; 2016-09-13)
DX: A41.9 Sepsis, unspecified organism (principal); J69.0 Pneumonitis due to inhalation of food and vomit; J96.91 Respiratory failure, unspecified with hypoxia; E43 Unspecified severe protein-calorie malnutrition; G92 Toxic encephalopathy; I50.33 Acute on chronic diastolic (congestive) heart failure; I51.3 Intracardiac thrombosis, not elsewhere classified; E83.42 Hypomagnesemia; I69.354 Hemiplegia and hemiparesis following cerebral infarction affecting left non-dominant side; N39.0 Urinary tract infection, site not specified; I13.0 Hypertensive heart and chronic kidney disease with heart failure and stage 1 through stage 4 chronic kidney disease, or unspecified chronic kidney disease; R13.10 Dysphagia, unspecified; D64.9 Anemia, unspecified; N18.9 Chronic kidney disease, unspecified; E11.22 Type 2 diabetes mellitus with diabetic chronic kidney disease; M81.0 Age-related osteoporosis without current pathological fracture; Z86.718 Personal history of other venous thrombosis and embolism; Z86.711 Personal history of pulmonary embolism; E86.0 Dehydration; B96.4 Proteus (mirabilis) (morganii) as the cause of diseases classified elsewhere; B96.1 Klebsiella pneumoniae [K. pneumoniae] as the cause of diseases classified elsewhere; F03.90 Unspecified dementia, unspecified severity, without behavioral disturbance, psychotic disturbance, mood disturbance, and anxiety
CPT/HCPCS: 36415; 36600; 71010; 74230; 80048; 80053; 80202; 81003; 82550; 82553; 82803; 82962; 83540; 83550; 83605; 83735; 83880; 84443; 84484; 85007; 85025; 85610; 87040; 87081; 87086; 87181; 93005; 93306; 93970; 94640; 94660; 94664; 94760; J1815; J7620